=== PATIENT | male | born 1955 | race Caucasian/White ===

== ENCOUNTER 2022-10-26 23:13 | Emergency (ER) | payer MEDICARE, OTHER, SELFPAY ==
--- NOTE | 2022-10-26 23:15 | RT.EKG_ITS ---
APPROVED REPORT Exam: Resting ECG Reason for Exam: chest pain Patient Location: E HR:61 bpm ECG Measurements Heart Rate 61 AXIS IA 175 P 46 QRSd 100 QRS -46 QT 426 T 61 QTc 429 Conclusion Sinus rhythm...normal P axis, V-rate 60- 99 LAD, consider left anterior fascicular block...axis(240,-40), S>R II III aVF. Sinus. No STEMI. I have reviewed and interpreted ECG and agree with software generated interpretation.
[2022-10-26 23:24] VITALS: BP 149/83; PULSE 58; RESP 22; TEMP 37; O2SAT 98
[2022-10-26 23:28] VITALS: RESP 23
--- NOTE | 2022-10-26 23:31 | ED.GENADUL_ITS ---
Discharge Plan Disposition Patient Disposition: Home Condition: Improving Discharge Details Clinical Impression: Biliary colic, Epigastric abdominal pain, Chest pain ED Provider: Seda Martinez Home Meds and New Rx's Prescriptions: New sucralfate [Carafate] 1 gram tablet 1 gm PO QACHS Qty: 14 0RF Continued lisinopril 20 MG tablet 5 mg PO DAILY venlafaxine [Effexor XR] 150 MG capsule,extended release 24hr 150 mg PO DAILY aspirin [Aspir-81] 81 MG tablet,delayed release (DR/EC) 81 mg PO DAILY propranolol 40 MG tablet 40 mg PO DAILY omeprazole 20 MG capsule,delayed release(DR/EC) 20 mg PO DAILY albuterol sulfate [Ventolin HFA] 60 PUFF HFA aerosol inhaler 2 puff Inhalation Q3H PRN PRN cholecalciferol (vitamin D3) 1,000 UNITS tablet 2,000 units PO DAILY budesonide-formoterol [Symbicort] 10.2 GM HFA aerosol inhaler 10.2 gm Inhalation BID indomethacin 50 MG capsule 50 mg PO DAILY famotidine 20 mg tablet 20 mg PO DAILY Discharge Instructions Instructions: Chest Pain (ED), Epigastric Pain (ED) Additional Instructions: Your imaging today shows gallstones which may be the source of your pain. Other possible cause include indigestion, stomach ulcers or stomach inflammation. Drink plenty of fluids and get plenty of rest. Continue to take a daily Pepcid or Prilosec as directed. A prescription for Carafate has been sent electronically to your pharmacy to take as directed for your abdominal pain. Follow-up with your primary care doctor in 1 week and for referral to general surgery if your symptoms do not improve or worsen for consideration for upper endoscopy. Return immediately to the emergency department with any worsening or new concerning symptoms as fever, worsening pain, or persistent vomiting for reevaluation and consideration for repeat CT imaging or for ultrasound if available at that time. Referrals: Ángel Krueger MD [ [facility] STAFF PHYSICIAN] - Discharge Data Discharge Date/Time-TO BE ENTERED AT DEPARTURE: 10/27/22 03:19 Discharge Physician: Seda Martinez Medical Decision Making [id number] -- 67-year-old male with a history of obesity, hypertension, hyperlipidemia, GERD, gout, diabetes, anxiety and depression presents to the ED with a complaint of epigastric abdominal pain with radiation into his chest for the past 4 hours after eating pizza. EKG notes a rate of 61, sinus, no STEMI and nondiagnostic. Blood pressure hypertensive, remainder vitals within normal limits. Patient appears somewhat uncomfortable. He has tenderness in the epigastrium and right upper quadrant. History and presentation does not appear consistent with ACS, PE or dissection. Differential diagnosis includes GERD, gastritis, peptic ulcer disease, cholelithiasis, cholecystitis, pancreatitis, gastroenteritis. We will place an IV, bolus IV fluids, screening labs, CT chest abdomen pelvis and give IV Pepcid, GI cocktail and Carafate and reassess. 0140 --labs and imaging reviewed. White blood cell count mildly elevated at 13.6. Glucose 266 but with normal bicarb and anion gap. Troponin negative. Lipase, LFTs and bilirubin within normal limits. CT reviewed and notes cholelithiasis and diverticulosis but no evidence of cholecystitis or diverticulitis. Patient reassessed and he states his pain is improved from 10/10 to 4/10. He states he still has some upper abdominal discomfort and would like additional relief. We will order a dose of IV Tylenol as patient drove himself here. We will plan for repeat troponin and EKG. 0300 --repeat troponin negative. Repeat EKG unchanged. Patient reassessed and he is requesting to go home. Denies any nausea or pain at this time. Discussed with the patient that possible causes of his pain include cholelithiasis, GERD, peptic ulcer disease, gastritis. Recommend an outpatient gallbladder ultrasound for further reassessment if his pain persists. Disposition decision made weighing the risks and benefits of hospitalization versus outpatient treatment, the risk for further decompensation, and the patient's wishes. Advised to follow up with the primary care doctor for re-evaluation. Usual and customary return precautions given prior to discharge. Medical Records Medical records reviewed: Yes I reviewed the patient's medical records. Imaging Data Radiologic Study: Radiologist's impression: CT Chest With Contrast; Diagnostic Exam date and time: 10/27/2022 12:38 AM Age: 67 years old Clinical indication: Other: Chest/epigastric pain, R/O pancreatitis, gastritisr/o cholecystitis; Additional info: Chest/epigastric pain, R/O pancreatitis, gastritis R/O cholecystitis TECHNIQUE: Imaging protocol: Diagnostic computed tomography of the chest with contrast. 3D rendering (Not supervised by radiologist): MIP and/or 3D reconstructed images were created by the technologist. Radiation optimization: All CT scans at this facility use at least one of these dose optimization techniques: automated exposure control; mA and/or kV adjustment per patient size (includes targeted exams where dose is matched to clinical indication); or iterative reconstruction. Contrast material: OMNIPAQUE 350; Contrast volume: 100 ml; Contrast route: INTRAVENOUS (IV);? COMPARISON: CR CHEST 2 VIEWS PA,LAT 11/19/2017 12:34 PM FINDINGS: Lungs: No consolidation. No masses. Pleural spaces: Unremarkable. No pneumothorax. No pleural effusion. Heart: No cardiomegaly. No pericardial effusion. Lymph nodes: Unremarkable. No enlarged lymph nodes. Vasculature: Unremarkable. No aortic aneurysm.? Bones/joints: Unremarkable. No acute fracture. Soft tissues: Unremarkable. IMPRESSION: No acute findings. CT Abdomen And Pelvis With Contrast Exam date and time: 10/27/2022 12:38 AM Age: 67 years old Clinical indication: Other: Chest/epigastric pain, R/O pancreatitis, gastritisr/o cholecystitis; Additional info: Chest/epigastric pain, R/O pancreatitis, gastritis R/O cholecystitis TECHNIQUE: Imaging protocol: Computed tomography of the abdomen and pelvis with contrast. 3D rendering (Not supervised by radiologist): MIP and/or 3D reconstructed images were created by the technologist. Radiation optimization: All CT scans at this facility use at least one of these dose optimization techniques: automated exposure control; mA and/or kV adjustment per patient size (includes targeted exams where dose is matched to clinical indication); or iterative reconstruction. Contrast material: OMNIPAQUE 350; Contrast volume: 100 ml; Contrast route: INTRAVENOUS (IV);? COMPARISON: CR CHEST 2 VIEWS PA,LAT 11/19/2017 12:34 PM FINDINGS: Liver: Unremarkable. No mass. Gallbladder and bile ducts: Cholelithiasis. Pancreas: Unremarkable. No ductal dilation. Spleen: Calcified granuloma within normal size spleen. Adrenal glands: Normal. No mass. Kidneys and ureters: Unremarkable. No hydronephrosis. Stomach and bowel: Colonic diverticulosis, no acute diverticulitis. Appendix: No evidence of appendicitis. Intraperitoneal space: No free air. No significant fluid collection. Vasculature: Atherosclerotic abdominal aorta and branches. Lymph nodes: No enlarged lymph nodes. Urinary bladder: Unremarkable as visualized. Reproductive: Status post bilateral vasectomy. Bones/joints: Unremarkable. No acute fracture. Soft tissues: Small fat containing bilateral inguinal hernias. IMPRESSION: 1. Colonic diverticulosis, no acute diverticulitis. 2. Cholelithiasis, no acute cholecystitis. Lab Data Lab results reviewed: Yes I reviewed the patient's lab results. Labs: Laboratory Tests Range/Units 10/26/22 10/26/22 10/27/22 23:36 23:36 02:29 WBC (4.4-10.8) 10^3/uL 13.64 H RBC (4.36-5.78) 10^6/uL 5.87 H Hgb (13.5-17.5) g/dL 18.0 H Hct (40.0-50.0) % 52.6 H MCV (80-95) fL 90 MCH (27.0-33.0) pg 30.7 MCHC (32.0-36.0) % 34.2 RDW (11.8-14.1) % 12.0 Plt Count (130-400) 10^3/uL 208 MPV (8.0-11.0) fL 10.0 Immature Gran % 1.2 Neutrophils % 78.0 Lymphocytes % 13.1 Monocytes % 5.9 Eosinophils % 1.3 Basophils % 0.5 Nucleated RBC % (0.0-0.3) % 0.0 Absolute Neutrophils (1.2-6.7) 10^3/uL 10.64 H Absolute Lymphocytes (1.2-3.4) 10^3/uL 1.79 Absolute Monocytes (0.1-0.8) 10^3/uL 0.80 Absolute Eosinophils (0.0-0.7) 10^3/uL 0.18 Absolute Basophils (0.0-0.2) 10^3/uL 0.07 Sodium (136-145) mmol/L 135 L Potassium (3.5-5.1) mmol/L 4.3 Chloride (98-107) mmol/L 99 Carbon Dioxide (21.0-32.0) mmol/L 27.5 Anion Gap (3-11) mmol/L 8.5 BUN (7-18) mg/dL 23 H Creatinine (0.70-1.30) mg/dL 1.3 Est GFR (CKD-EPI 2020) (mL/min/1.73m2) 59.84 Glucose (74-106) mg/dL 266 H Calcium (8.5-10.1) mg/dL 9.2 Magnesium (1.8-2.4) mg/dL 1.8 Total Bilirubin (0.2-1.0) mg/dL 0.7 AST (15-37) U/L 20 ALT (16-63) U/L 28 Alkaline Phosphatase (46-116) U/L 85 Troponin I (<or=60) ng/L < 50 < 50 Total Protein (6.4-8.2) g/dL 7.5 Albumin (3.4-5.0) g/dL 4.1 Lipase (16-77) U/L 53 ECG Data Attestation: I personally reviewed and interpreted this ECG (s) as follows: Interpretation: #1 -- rate of 61, sinus, no stemi. #2 -- rate of 87, sinus, no stemi. HPI General Mode of arrival: EMS . Date/Time Provider Initiated Documentation: 10/26/22 23:30 . Limitations to Documentation: no limitations . Information obtained by: patient . HPI Narrative: Patient is a 59-year-old male with a history of obesity, hypertension, hyperlipidemia, GERD, gout, diabetes, anxiety and depression presents from home for epigastric pain with radiation to his chest for the past 4 hours. Patient states he had pizza at 3 PM today. Patient states he had symptoms starting before he went to bed but became worse while he was laying in bed trying to fall asleep. He describes the pain as constant, sharp in the upper abdomen and radiating up into his chest. He states the pain is currently 10/10. He denies any radiation through his back or around to his sides. He took Pepcid without relief. He denies any known fever, cough, shortness of breath, nausea, vomiting, diarrhea or urinary symptoms. He did have a normal bowel movement at home prior to arrival. Related Data Home Medications Medication Instructions Recorded Confirmed albuterol sulfate 90 mcg/actuation 2 puff inhalation Q3H PRN PRN 11/11/16 10/27/22 aerosol inhaler (Ventolin HFA) aspirin 81 mg tablet,delayed 81 mg PO DAILY 11/11/16 10/27/22 release (Aspir-) budesonide-formoterol HFA 160 10.2 gm inhalation BID 11/11/16 10/27/22 mcg-4.5 mcg/actuation aerosol inhaler (Symbicort) cholecalciferol (vitamin D3) 25 2,000 units PO DAILY 11/11/16 10/27/22 mcg (1,000 unit) tablet lisinopril 20 mg tablet 5 mg PO DAILY 11/11/16 10/27/22 omeprazole 20 mg capsule,delayed 20 mg PO DAILY 11/11/16 10/27/22 release propranolol 40 mg tablet 40 mg PO DAILY 11/11/16 10/27/22 venlafaxine 150 mg 150 mg PO DAILY 11/11/16 10/27/22 capsule,extended release 24 hr (Effexor XR) indomethacin 50 mg capsule 50 mg PO DAILY 11/19/17 10/27/22 famotidine 20 mg tablet 20 mg PO DAILY 10/26/22 10/27/22 sucralfate 1 gram tablet (Carafate) 1 gm PO QACHS #14 tabs 10/27/22 10/27/22 Previous Rx's Medication Instructions Recorded sucralfate 1 gram tablet (Carafate) 1 gm PO QACHS #14 tabs 10/27/22 Allergies Allergy/AdvReac Type Severity Reaction Status Date / Time No Known Allergies Allergy Unverified 10/27/22 18:45 General Stated Complaint: Chest Pain LAILA: 2 Review of Systems All systems reviewed & are unremarkable except as noted in HPI and below Constitutional Constitutional: Reports as per HPI, Denies chills and Denies fever(s) Eyes Eyes: Denies blurry vision ENT Ears, Nose, Mouth, and Throat: Denies dizziness, Denies sore throat and Denies throat swelling Cardiovascular Cardiovascular: Reports chest pain and Denies dyspnea Respiratory Respiratory: Denies cough and Denies dyspnea Gastrointestinal Gastrointestinal: Reports abdominal pain, Denies diarrhea and Denies vomiting Genitourinary Genitourinary: Denies hematuria and Denies dysuria Musculoskeletal Musculoskeletal: Denies back pain and Denies numbness Integumentary/Breasts Skin/Breast: Denies lesions and Denies rash Neurologic Neurologic: Denies dizziness, Denies localized weakness and Denies numbness Allergic/Immunologic Allergic/Immunologic: Denies throat swelling PFSH All Active Problems (Updated 11/01/22 @ 03:33 by Seda Martinez DO) Biliary colic (Acute) Respiratory failure with hypoxia (Acute) Elevated LFTs (Acute) Leukocytosis (Acute) Septic shock (Acute) SHELBI (acute kidney injury) (Acute) COPD (chronic obstructive pulmonary disease) (Chronic) Sepsis (Acute) Epigastric abdominal pain (Acute) Chest pain (Acute) Acute cholecystitis (Acute) Medical History Anxiety Depression Diabetes GERD (gastroesophageal reflux disease) Gout HTN (hypertension) Hx of hyperlipidemia Surgical History H/O thyroid cyst Cystectomy History of hernia repair History of hip replacement Social History Smoking/Tobacco Use Status: Former Tobacco Use Quit Date: 06/09/22 Smoking risk assessment performed?: Yes Alcohol Intake: former Drug use: Never Substance use type: does not use Do you feel safe at home: Yes Do you feel safe in your relationship?: Yes Exam Const General: cooperative, healthy appearing and no acute distress HENMT Head: normal to inspection Face and sinus: normal facial exam Eyes General: appearance normal, both eyes and all related structures Pupils: PERRL EOM: EOM intact bilaterally Neck Neck: normal visual inspection and No submandibular swelling Lymphatic: no lymphadenopathy noted Chest Chest: normal inspection of the chest and no tenderness Resp Effort & Inspection: normal respiratory effort and able to speak in complete sentences Auscultation: clear to auscultation bilaterally Cardio Rate: regular rate Rhythm: regular rhythm GI Inspection: normal to inspection Palpation: soft, not firm, not rigid and tender in the epigastrum Auscultation: hypoactive bowel sounds Back/Spine/Pelvis Thoracic/Lumbar Spine: thoracic and lumbar spine normal to inspection Pelvis: no pain with anterior-posterior compression Skin General skin exam: no rashes or lesions noted Neuro General: patient alert, patient awake and patient oriented x3 Cognition: normal cognition Speech: speech normal Motor: muscle tone normal throughout Sensory Exam: no sensory deficits noted Extrem General: normal to inspection, full ROM, capillary refill normal, no calf tenderness bilaterally and no edema Psych Appearance: grossly normal Mental Status: mental status grossly normal Speech and Movement: speech and movement normal Affect: normal affect Course Vital Signs Vital signs: Vital Signs Temperature 98.6 F 10/26/22 23:24 Pulse 58 L 10/26/22 23:24 Respiratory Rate 22 10/26/22 23:24 Blood Pressure 149/83 H 10/26/22 23:24 Pulse Oximetry 98 10/26/22 23:24 Temperature 98.6 F 10/26/22 23:24 Temperature Source Temporal Artery Scan 10/26/22 23:24 Pulse 58 L 10/26/22 23:24 Respiratory Rate 22 10/26/22 23:24 Blood Pressure 149/83 H 10/26/22 23:24 Blood Pressure Position Sitting 10/26/22 23:24 Pulse Oximetry 98 10/26/22 23:24 Oxygen Delivery Method Room Air 10/26/22 23:24 Oxygen Flow Rate 0 10/26/22 23:24 Pain Level 10 10/26/22 23:24
[2022-10-26 23:41] LABS: Abs Immature Grans 0.17 10^3/uL (0.0-0.06); Absolute Basophil Count 0.07 10^3/uL (0.0-0.2); Absolute Eosinophil Count 0.18 10^3/uL (0.0-0.7); Absolute Lymphocyte Count 1.79 10^3/uL (1.2-3.4); Basophils % 0.5; Eosinophils % 1.3; HCT 52.6 % (40.0-50.0); Immature Grans % 1.2; Lymphocytes % 13.1; MCH 30.7 pg (27.0-33.0); MCHC 34.2 % (32.0-36.0); MCV 90 fL (80-95); Monocytes % 5.9; Platelet Count 208 10^3/uL (130-400); RBC 5.87 10^6/uL (4.36-5.78); RDW-SD 39.8 fL; WBC 13.64 10^3/uL (4.4-10.8)
[2022-10-26 23:43] LABS: Absolute Neutrophil Count 10.64 10^3/uL (1.2-6.7)
[2022-10-26 23:57] VITALS: RESP 16; O2SAT 94
[2022-10-26 23:58] VITALS: RESP 15; O2SAT 96
[2022-10-26 23:59] VITALS: RESP 21; O2SAT 96
[2022-10-27] VITALS (98 sets, daily range): BP systolic 134–148; BP diastolic 60–83; PULSE 60–84; RESP 8–24; TEMP 36.6; O2SAT 94–98
--- NOTE | 2022-10-27 | DI.CT_ITS ---
Exam(s) CT CHEST/ABD/PEL W EXAM: CT CHEST/ABD/PEL W CLINICAL HISTORY: chest/epigastric pain, r/o pancreatitis, gastritis. TECHNIQUE: Imaging Protocol: Axial computed tomography images with coronal and sagittal reformatted images were created and reviewed CONTRAST MATERIAL: Intravenous: Omnipaque 350 Contrast volume:100 ml Oral: no COMPARISON: No exams were available for comparison FINDINGS: CHEST: Tracheobronchial tree: Patent where visualized. Pulmonary parenchyma: No consolidation or dominant measurable mass. Pleura: No effusion or pneumothorax. Lymph nodes: Within normal limits. Aorta: Thoracic portion non-dilated. Heart: Normal size. Mild coronary artery calcifications. No pericardial effusion. Bones: Unremarkable for age. No lytic or blastic lesions.No compression fractures. Soft tissues: Mild bilateral gynecomastia. ABDOMEN: Liver: Normal density. No measurable mass. Gallbladder and biliary tract: Stones noted in gallbladder. No gallbladder wall thickening or perich olecystic fluid. No biliary dilation. Pancreas: Normal density, no abnormal calcifications or inflammatory process. Spleen: Normal. Kidneys: Normal size, contour and axis. No radiodense stones or obstructive uropathy. No suspicious m asses seen. Adrenal glands: No masses seen. Aorta: Mild dilatation to 2.9 cm with mural thrombus. No dissection. Lymph nodes: Within normal limits. Soft tissues: Unremarkable. PELVIS: Bladder: Symmetric distention, no gross wall thickening. Bowel: Stomach and small bowel unremarkable. Diverticulosis sigmoid. No obstruction or bowel wall t hickening. Appendix normal. Peritoneal cavity: No ascites, collection or mesenteric inflammatory response. Bones: Unremarkable for age.. Reproductive organs: Within normal limits. IMPRESSION: No acute abnormality in the chest, abdomen or pelvis.. Cholelithiasis and diverticulosis noted. Mild dilatation of the abdominal aorta with mural thrombus. RADIATION DOSE DELIVERED: 1,527.08mGy.cm Total DLP DATA REPOSITORY: All CT scans at this facility are submitted to the National Radiology Data Registry (NRDR) Dose Index Registry (DIR) with the [employer] ([employer]). RADIATION OPTIMIZATION: All CT scans at this facility use at least one of these dose optimization te chniques: automated exposure control; mA and/or kV adjustment per patient size (includes targeted exa ms where dose is matched to clinical indication); or iterative reconstruction.
[2022-10-27 00:01] LABS: ALT 28 U/L (16-63); AST 20 U/L (15-37); Albumin 4.1 g/dL (3.4-5.0); Alkaline Phosphatase 85 U/L (46-116); Anion Gap 8.5 mmol/L (3-11); BUN 23 mg/dL (7-18); Bilirubin, Total 0.7 mg/dL (0.2-1.0); CO2 27.5 mmol/L (21.0-32.0); CREATININE 1.3 mg/dL (0.70-1.30); Calcium 9.2 mg/dL (8.5-10.1); Chloride 99 mmol/L (98-107); Estimated GFR 59.84 (mL/min/1.73m2); Glucose 266 mg/dL (74-106); Lipase 53 U/L (16-77); Magnesium 1.8 mg/dL (1.8-2.4); Potassium 4.3 mmol/L (3.5-5.1); Sodium 135 mmol/L (136-145); Total Protein 7.5 g/dL (6.4-8.2); Troponin I < 50 ng/L (<or=60)
[2022-10-27] MEDS: Normal Saline 500 ML IV (00:23)
[2022-10-27] MEDS: Famotidine 20 MG/2 ML VIAL IVP (00:24)
[2022-10-27] MEDS: Sucralfate 1 GM TAB PO (00:24)
[2022-10-27] MEDS: Omnipaque 350 MG/ML 100 ML BTL IJ (00:25)
[2022-10-27] MEDS: Normal Saline - Diluent 50 ML VIAL IJ (00:26)
[2022-10-27] MEDS: Normal Saline Flush 10 ML SYR IVP (00:26)
--- NOTE | 2022-10-27 01:34 | DI.VRAD_ITS ---
PROCEDURE INFORMATION: Exam: CT Chest With Contrast; Diagnostic Exam date and time: 10/27/2022 12:38 AM Age: 67 years old Clinical indication: Other: Chest/epigastric pain, R/O pancreatitis, gastritisr/o cholecystitis; Additional info: Chest/epigastric pain, R/O pancreatitis, gastritis R/O cholecystitis TECHNIQUE: Imaging protocol: Diagnostic computed tomography of the chest with contrast. 3D rendering (Not supervised by radiologist): MIP and/or 3D reconstructed images were created by the technologist. Radiation optimization: All CT scans at this facility use at least one of these dose optimization techniques: automated exposure control; mA and/or kV adjustment per patient size (includes targeted exams where dose is matched to clinical indication); or iterative reconstruction. Contrast material: OMNIPAQUE 350; Contrast volume: 100 ml; Contrast route: INTRAVENOUS (IV); COMPARISON: CR CHEST 2 VIEWS PA,LAT 11/19/2017 12:34 PM FINDINGS: Lungs: No consolidation. No masses. Pleural spaces: Unremarkable. No pneumothorax. No pleural effusion. Heart: No cardiomegaly. No pericardial effusion. Lymph nodes: Unremarkable. No enlarged lymph nodes. Vasculature: Unremarkable. No aortic aneurysm. Bones/joints: Unremarkable. No acute fracture. Soft tissues: Unremarkable. IMPRESSION: No acute findings. PROCEDURE INFORMATION: Exam: CT Abdomen And Pelvis With Contrast Exam date and time: 10/27/2022 12:38 AM Age: 67 years old Clinical indication: Other: Chest/epigastric pain, R/O pancreatitis, gastritisr/o cholecystitis; Additional info: Chest/epigastric pain, R/O pancreatitis, gastritis R/O cholecystitis TECHNIQUE: Imaging protocol: Computed tomography of the abdomen and pelvis with contrast. 3D rendering (Not supervised by radiologist): MIP and/or 3D reconstructed images were created by the technologist. Radiation optimization: All CT scans at this facility use at least one of these dose optimization techniques: automated exposure control; mA and/or kV adjustment per patient size (includes targeted exams where dose is matched to clinical indication); or iterative reconstruction. Contrast material: OMNIPAQUE 350; Contrast volume: 100 ml; Contrast route: INTRAVENOUS (IV); COMPARISON: CR CHEST 2 VIEWS PA,LAT 11/19/2017 12:34 PM FINDINGS: Liver: Unremarkable. No mass. Gallbladder and bile ducts: Cholelithiasis. Pancreas: Unremarkable. No ductal dilation. Spleen: Calcified granuloma within normal size spleen. Adrenal glands: Normal. No mass. Kidneys and ureters: Unremarkable. No hydronephrosis. Stomach and bowel: Colonic diverticulosis, no acute diverticulitis. Appendix: No evidence of appendicitis. Intraperitoneal space: No free air. No significant fluid collection. Vasculature: Atherosclerotic abdominal aorta and branches. Lymph nodes: No enlarged lymph nodes. Urinary bladder: Unremarkable as visualized. Reproductive: Status post bilateral vasectomy. Bones/joints: Unremarkable. No acute fracture. Soft tissues: Small fat containing bilateral inguinal hernias. IMPRESSION: 1. Colonic diverticulosis, no acute diverticulitis. 2. Cholelithiasis, no acute cholecystitis. Dictated and Authenticated by: Shyam Franklin MD. Ordering:ROSAMARIA Stack MD
[2022-10-27] MEDS: ACETAMINOPHEN 1,000 MG/100 ML BTL 400 MG IVPB (02:04)
--- NOTE | 2022-10-27 02:30 | RT.EKG_ITS ---
APPROVED REPORT Exam: Resting ECG Reason for Exam: chest pain Patient Location: E HR:87 bpm ECG Measurements Heart Rate 87 AXIS UT 183 P 55 QRSd 101 QRS -62 QT 369 T 57 QTc 444 Conclusion Sinus rhythm...normal P axis, V-rate 60- 99 Inferior infarct, old...Q >35mS, II III aVF. Sinus. No STEMI. I have reviewed and interpreted ECG and agree with software generated interpretation.
[2022-10-27 02:57] LABS: Troponin I < 50 ng/L (<or=60)
== END 2022-10-27 03:19 | disposition home or self-care (01) ==
PROVIDERS: Emergency Provider Physician Assistant
DX: R10.13 Epigastric pain (principal); R07.9 Chest pain, unspecified; I10 Essential (primary) hypertension; E78.5 Hyperlipidemia, unspecified; E11.9 Type 2 diabetes mellitus without complications; F32.A Depression, unspecified; Z79.82 Long term (current) use of aspirin; Z87.891 Personal history of nicotine dependence
CPT/HCPCS: 74177; 80053; 83690; 93005; 96361; 96374; 96375; 99285; 71260; 83735; 84484; 85025; 93010; J0131; J3490

== ENCOUNTER 2022-10-27 18:41 | Inpatient (IN) | payer OTHER, SELFPAY ==
[2022-10-27 18:46] VITALS: BP 123/57; PULSE 72; RESP 18; TEMP 36.4; O2SAT 97
--- NOTE | 2022-10-27 19:15 | RT.EKG_ITS ---
APPROVED REPORT Exam: Resting ECG Reason for Exam: epigastric pain Patient Location: E HR:71 bpm ECG Measurements Heart Rate 71 AXIS [place] 172 P 49 QRSd 99 QRS 63 QT 382 T 65 QTc 417 Conclusion Sinus rhythm...normal P axis, V-rate 60- 99
[2022-10-27 19:44] LABS: Lactate 1.7 mmol/L (0.6-1.4)
[2022-10-27 19:49] LABS: Abs Immature Grans 0.15 10^3/uL (0.0-0.06); Absolute Basophil Count 0.09 10^3/uL (0.0-0.2); Absolute Lymphocyte Count 1.36 10^3/uL (1.2-3.4); Basophils % 0.4; Eosinophils % 0.1; HCT 48.8 % (40.0-50.0); HGB 16.7 g/dL (13.5-17.5); Immature Grans % 0.6; Lymphocytes % 5.9; MCH 30.6 pg (27.0-33.0); MCHC 34.2 % (32.0-36.0); MCV 90 fL (80-95); Monocytes % 7.9; Neutrophils % 85.1; Platelet Count 210 10^3/uL (130-400); RBC 5.45 10^6/uL (4.36-5.78); RDW 12.1 % (11.8-14.1); RDW-SD 39.8 fL; WBC 23.08 10^3/uL (4.4-10.8)
[2022-10-27 19:50] LABS: Absolute Eosinophil Count 0.02 10^3/uL (0.0-0.7); Absolute Monocyte Count 1.82 10^3/uL (0.1-0.8); Absolute Neutrophil Count 19.64 10^3/uL (1.2-6.7)
[2022-10-27] MEDS: FAMOTIDINE 20 MG in Normal Saline 100 ML 400 MG IVPB (20:00)
[2022-10-27 20:03] LABS: ALT 30 U/L (16-63); AST 21 U/L (15-37); Albumin 3.8 g/dL (3.4-5.0); Alkaline Phosphatase 81 U/L (46-116); Anion Gap 8.3 mmol/L (3-11); BUN 20 mg/dL (7-18); Bilirubin, Total 1.8 mg/dL (0.2-1.0); CO2 26.7 mmol/L (21.0-32.0); CREATININE 1.4 mg/dL (0.70-1.30); Calcium 8.8 mg/dL (8.5-10.1); Chloride 99 mmol/L (98-107); Estimated GFR 54.75 (mL/min/1.73m2); Glucose 241 mg/dL (74-106); Lipase 28 U/L (16-77); Potassium 4.2 mmol/L (3.5-5.1); Sodium 134 mmol/L (136-145); Total Protein 7.2 g/dL (6.4-8.2)
[2022-10-27] MEDS: Pantoprazole 40 MG VIAL IVP (20:04)
[2022-10-27 20:06] LABS: Troponin I < 50 ng/L (<or=60)
[2022-10-27] MEDS: Normal Saline 1,000 ML 1000 ML IV (20:07)
[2022-10-27] MEDS: Sucralfate 1 GM TAB PO (20:11)
--- NOTE | 2022-10-27 20:15 | DI.CT_ITS ---
Exam(s) CT ABDOMEN PELVIS W EXAM: CT ABDOMEN PELVIS W CLINICAL HISTORY: RUQ/epigastric pain, bili 1.8, wbc 23. TECHNIQUE: Imaging Protocol: Axial computed tomography images with coronal and sagittal reformatted images were created and reviewed CONTRAST MATERIAL: Intravenous: Omnipaque 350 Contrast volume:100 ml Oral: no COMPARISON: CT CT CHEST/ABD/PEL W from 10/27/2022 FINDINGS: ABDOMEN: Lung Bases: Mild dependent changes. Liver: Normal density. No measurable mass. Gallbladder and biliary tract: Cholelithiasis again noted. Gallbladder wall now appears mildly thick ened. There is mild stranding in the fat surrounding the pole gallbladder. No biliary dilatation. Findings suspicious for early acute cholecystitis. No localized collection or fluid. Pancreas: Normal density, no abnormal calcifications or inflammatory process. Spleen: Normal. Kidneys: Normal size, contour and axis. No radiodense stones or obstructive uropathy. No masses seen. Adrenal glands: No masses seen. Abdominal Aorta: Abdominal portion non-dilated. PELVIS: Bladder: Bladder now contains contrast from the prior CT. No gross wall thickening. No calculi.No fo charli mass. Bowel: Mild wall thickening at the a padded flexure adjacent to the gallbladder, reactive. Diverticu losis descending and sigmoid without evidence of diverticulitis. No obstruction or bowel wall thicke miguelito. Appendix normal. Peritoneal cavity: No ascites, collection or mesenteric inflammatory response. Bones: Within normal limits for age. Reproductive organs: Within normal limits. Lymph nodes: Unremarkable. Soft tissues: Small fatty containing inguinal hernias. Impression: Cholelithiasis and thickened wall and mild pericholecystic edema consistent with cholecystitis. RADIATION DOSE DELIVERED: 903.66mGy.cm Total DLP DATA REPOSITORY: All CT scans at this facility are submitted to the National Radiology Data Registry (NRDR) Dose Index Registry (DIR) with the [employer] ([employer]). RADIATION OPTIMIZATION: All CT scans at this facility use at least one of these dose optimization te chniques: automated exposure control; mA and/or kV adjustment per patient size (includes targeted exa ms where dose is matched to clinical indication); or iterative reconstruction.
--- NOTE | 2022-10-27 20:31 | ED.GENADUL_ITS ---
Discharge Plan Disposition Patient Disposition: Admit to [facility] Discharge Details Chief Complaint: Abd Prob Clinical Impression: Acute cholecystitis Primary Care Provider: [facility] ED Provider: Wenceslao Alberto Home Meds and New Rx's Prescriptions: No Action lisinopril 20 MG tablet 5 mg PO DAILY venlafaxine [Effexor XR] 150 MG capsule,extended release 24hr 150 mg PO DAILY aspirin [Aspir-81] 81 MG tablet,delayed release (DR/EC) 81 mg PO DAILY propranolol 40 MG tablet 40 mg PO DAILY omeprazole 20 MG capsule,delayed release(DR/EC) 20 mg PO DAILY albuterol sulfate [Ventolin HFA] 60 PUFF HFA aerosol inhaler 2 puff Inhalation Q3H PRN PRN cholecalciferol (vitamin D3) 1,000 UNITS tablet 2,000 units PO DAILY budesonide-formoterol [Symbicort] 10.2 GM HFA aerosol inhaler 10.2 gm Inhalation BID indomethacin 50 MG capsule 50 mg PO DAILY famotidine 20 mg tablet 20 mg PO DAILY sucralfate [Carafate] 1 gram tablet 1 gm PO QACHS Qty: 14 0RF Medical Decision Making This is a 67-year-old gentleman with past medical history that includes anxiety, depression, diabetes, gout, hypertension, hyperlipidemia, seen in the ER overnight for abdominal pain, subsequent chest pain and abdominal pain work-up ensued, negative, discharged home. Patient states he was unable to fill his Carafate prescription. Reports ongoing right upper quadrant pain associate with nausea and vomiting today. I feel as though his examination is most consistent with cholecystitis however certainly cannot rule out hepatitis, gastritis, peptic ulcer, atypical chest pain, etc. Plan to obtain IV access, give IV fluid, IV PPI H2 skye, p.o. GI cocktail and Carafate. Will obtain routine screening laboratory values including a single troponin and EKG. Laboratory values reveal leukocytosis of 23.08 which is significantly improved when compared to his recent visit. Absolute neutrophils of 19.64. Lactate of 1.7. Total bili of 1.8 which is up from 0.7. LFTs otherwise unremarkable. Patient reports increasing pain. Will provide IV Dilaudid. Troponin less than 50 Given his significant leukocytosis, ongoing pain, will obtain repeat CT. CT reveals findings concerning for cholecystitis. Will provide IV Zosyn and request a surgical consultation. Covid test ordered. Case discussed with Dr. Jamison, surgery, who is agreeable to admit the patient and will write admission orders This documentation was generated using DocSeaation system, please disregard any oddities of phrase or misspellings. Medical Records Medical records reviewed: Yes I reviewed the patient's medical records. Imaging Data Radiologic Study: Attestation: I personally reviewed and interpreted this imaging study as follows: Imaging: CT Scan Radiologist's impression: PROCEDURE INFORMATION: Exam: CT Abdomen And Pelvis With Contrast Exam date and time: 10/27/2022 8:30 PM Age: 67 years old Clinical indication: Other: Ruq/ epigastric pain, bili 1.8, wbc 23 TECHNIQUE: Imaging protocol: Computed tomography of the abdomen and pelvis with contrast. Contrast material: 350; Contrast volume: 100 ml; Contrast route: INTRAVENOUS (IV); COMPARISON: CT CHEST/ABD/PEL W 10/27/2022 12:38 AM FINDINGS: Lungs: There is right basilar atelectasis. Liver: Normal. No mass. Gallbladder and bile ducts: There is cholelithiasis. There is trace stranding adjacent to the gallbladder. Common bile duct is unremarkable. No intrahepatic biliary dilatation. Pancreas: Normal. No ductal dilation. Spleen: Calcified granuloma in the spleen. Adrenal glands: Normal. No mass. Kidneys and ureters: There is a 0.5 cm cyst in the medial left upper pole kidney. Stomach and bowel: There is diverticulosis of sigmoid colon without focal acute inflammation. Mild to moderate fecal loading noted in the colon. There is mild edema of the wall of the ascending colon in the hepatic flexure region, probably reactive. Appendix: No evidence of appendicitis. Intraperitoneal space: Unremarkable. No free air. No significant fluid collection. Vasculature: Unremarkable. No abdominal aortic aneurysm. Lymph nodes: Unremarkable. No enlarged lymph nodes. Urinary bladder: Unremarkable as visualized.Reproductive: Unremarkable as visualized. Bones/joints: Unremarkable. No acute fracture. Soft tissues: Small fat containing bilateral inguinal hernia. No complication. IMPRESSION: 1. Cholelithiasis with pericholecystic edema suspicious of cholecystitis. There is mild thickening of the subjacent hepatic flexure colon, probably due to reactive changes. There is no dilatation of the common bile duct. 2. Colonic diverticulosis without focal acute inflammation. Lab Data Lab results reviewed: Yes I reviewed the patient's lab results. Labs: Laboratory Tests Range/Units 02/18/23 02/18/23 02/18/23 19:31 19:31 19:31 WBC (4.4-10.8) 10^3/uL 23.08 H RBC (4.36-5.78) 10^6/uL 5.45 Hgb (13.5-17.5) g/dL 16.7 Hct (40.0-50.0) % 48.8 MCV (80-95) fL 90 MCH (27.0-33.0) pg 30.6 MCHC (32.0-36.0) % 34.2 RDW (11.8-14.1) % 12.1 Plt Count (130-400) 10^3/uL 210 MPV (8.0-11.0) fL 10.0 Immature Gran % 0.6 Neutrophils % 85.1 Lymphocytes % 5.9 Monocytes % 7.9 Eosinophils % 0.1 Basophils % 0.4 Nucleated RBC % (0.0-0.3) % 0.0 Absolute Neutrophils (1.2-6.7) 10^3/uL 19.64 H Absolute Lymphocytes (1.2-3.4) 10^3/uL 1.36 Absolute Monocytes (0.1-0.8) 10^3/uL 1.82 H Absolute Eosinophils (0.0-0.7) 10^3/uL 0.02 Absolute Basophils (0.0-0.2) 10^3/uL 0.09 VBG Lactate (0.6-1.4) mmol/L Sodium (136-145) mmol/L 134 L Potassium (3.5-5.1) mmol/L 4.2 Chloride (98-107) mmol/L 99 Carbon Dioxide (21.0-32.0) mmol/L 26.7 Anion Gap (3-11) mmol/L 8.3 BUN (7-18) mg/dL 20 H Creatinine (0.70-1.30) mg/dL 1.4 H Est GFR (CKD-EPI 2020) (mL/min/1.73m2) 54.75 Glucose (74-106) mg/dL 241 H Calcium (8.5-10.1) mg/dL 8.8 Total Bilirubin (0.2-1.0) mg/dL 1.8 H AST (15-37) U/L 21 ALT (16-63) U/L 30 Alkaline Phosphatase (46-116) U/L 81 Troponin I (<or=60) ng/L < 50 Total Protein (6.4-8.2) g/dL 7.2 Albumin (3.4-5.0) g/dL 3.8 Lipase (16-77) U/L 28 COVID-19 Source Range/Units 10/27/22 10/27/22 19:31 21:46 WBC (4.4-10.8) 10^3/uL RBC (4.36-5.78) 10^6/uL Hgb (13.5-17.5) g/dL Hct (40.0-50.0) % MCV (80-95) fL MCH (27.0-33.0) pg MCHC (32.0-36.0) % RDW (11.8-14.1) % Plt Count (130-400) 10^3/uL MPV (8.0-11.0) fL Immature Gran % Neutrophils % Lymphocytes % Monocytes % Eosinophils % Basophils % Nucleated RBC % (0.0-0.3) % Absolute Neutrophils (1.2-6.7) 10^3/uL Absolute Lymphocytes (1.2-3.4) 10^3/uL Absolute Monocytes (0.1-0.8) 10^3/uL Absolute Eosinophils (0.0-0.7) 10^3/uL Absolute Basophils (0.0-0.2) 10^3/uL VBG Lactate (0.6-1.4) mmol/L 1.7 H Sodium (136-145) mmol/L Potassium (3.5-5.1) mmol/L Chloride (98-107) mmol/L Carbon Dioxide (21.0-32.0) mmol/L Anion Gap (3-11) mmol/L BUN (7-18) mg/dL Creatinine (0.70-1.30) mg/dL Est GFR (CKD-EPI 2020) (mL/min/1.73m2) Glucose (74-106) mg/dL Calcium (8.5-10.1) mg/dL Total Bilirubin (0.2-1.0) mg/dL AST (15-37) U/L ALT (16-63) U/L Alkaline Phosphatase (46-116) U/L Troponin I (<or=60) ng/L Total Protein (6.4-8.2) g/dL Albumin (3.4-5.0) g/dL Lipase (16-77) U/L COVID-19 Source Nasal/Nares ECG Data Attestation: I personally reviewed and interpreted this ECG (s) as follows: Interpretation: Sinus rhythm, ventricular of 71, no STEMI. HPI General Mode of arrival: ambulatory . Date/Time Provider Initiated Documentation: 10/27/22 18:52 . Limitations to Documentation: no limitations . Information obtained by: patient . History of Present Illness 67 year old M presents to the emergency department with the chief complaint of Abdominal pain, described as severe, with intensity rated at 9. Quality is described as aching, and is localized to the abdomen. Patient reports no radiation. Patient started experiencing this day(s) (1) and it has been constant (worsening). No relieving factors improve symptom(s), No exacerbating factors reported . Patient notes nausea/vomiting. Patient did receive the following treatments prior to arrival, none Related Data Home Medications Medication Instructions Recorded Confirmed albuterol sulfate 90 mcg/actuation 2 puff inhalation Q3H PRN PRN 11/11/16 10/27/22 aerosol inhaler (Ventolin HFA) aspirin 81 mg tablet,delayed 81 mg PO DAILY 11/11/16 10/27/22 release (Aspir-) budesonide-formoterol HFA 160 10.2 gm inhalation BID 11/11/16 10/27/22 mcg-4.5 mcg/actuation aerosol inhaler (Symbicort) cholecalciferol (vitamin D3) 25 2,000 units PO DAILY 11/11/16 10/27/22 mcg (1,000 unit) tablet lisinopril 20 mg tablet 5 mg PO DAILY 11/11/16 10/27/22 omeprazole 20 mg capsule,delayed 20 mg PO DAILY 11/11/16 10/27/22 release propranolol 40 mg tablet 40 mg PO DAILY 11/11/16 10/27/22 venlafaxine 150 mg 150 mg PO DAILY 11/11/16 10/27/22 capsule,extended release 24 hr (Effexor XR) indomethacin 50 mg capsule 50 mg PO DAILY 11/19/17 10/27/22 famotidine 20 mg tablet 20 mg PO DAILY 10/26/22 10/27/22 sucralfate 1 gram tablet (Carafate) 1 gm PO QACHS #14 tabs 10/27/22 10/27/22 Previous Rx's Medication Instructions Recorded sucralfate 1 gram tablet (Carafate) 1 gm PO QACHS #14 tabs 10/27/22 Allergies Allergy/AdvReac Type Severity Reaction Status Date / Time No Known Allergies Allergy Unverified 10/27/22 18:45 General Stated Complaint: Abd Prob LAILA: 3 Review of Systems Constitutional Constitutional: Denies fatigue, Denies fever(s) and Denies weakness ENT Ears, Nose, Mouth, and Throat: Denies neck pain Cardiovascular Cardiovascular: Denies chest pain and Denies dyspnea Respiratory Respiratory: Denies cough and Denies dyspnea Gastrointestinal Gastrointestinal: Reports abdominal pain, Denies melena, Denies hematochezia, Denies constipation, Denies diarrhea, Reports nausea and Reports vomiting Genitourinary Genitourinary: Denies dysuria Musculoskeletal Musculoskeletal: Denies neck pain, Denies numbness and Denies tingling Integumentary/Breasts Skin/Breast: Denies rash Neurologic Neurologic: Denies numbness, Denies tingling and Denies weakness Endocrine Endocrine: Denies fatigue Hematologic/Lymphatic Hematologic/Lymphatic: Denies easy bleeding and Denies easy bruising PFSH All Active Problems (Updated 10/27/22 @ 22:04 by WINIFRED Iraheta) Epigastric abdominal pain (Acute) Chest pain (Acute) Acute cholecystitis (Acute) Medical History Anxiety Depression Diabetes GERD (gastroesophageal reflux disease) Gout HTN (hypertension) Hx of hyperlipidemia Surgical History H/O thyroid cyst Cystectomy History of hernia repair History of hip replacement Social History Smoking/Tobacco Use Status: Former Tobacco Use Quit Date: 06/09/22 Smoking risk assessment performed?: Yes Alcohol Intake: former Drug use: Never Substance use type: does not use Do you feel safe at home: Yes Do you feel safe in your relationship?: Yes Exam Const General: cooperative, healthy appearing and no acute distress Orientation: alert, awake and oriented x3 HENMT Head: normal to inspection, normocephalic and atraumatic Face and sinus: normal facial exam Mouth: moist mucous membranes abnormal (Slightly dry) Throat: posterior oropharynx normal Eyes Conjunctivae: conjunctivae normal Neck Neck: normal visual inspection, full ROM, no meningeal signs, trachea midline and supple Resp Effort & Inspection: normal respiratory effort and able to speak in complete sentences Auscultation: clear to auscultation bilaterally Cardio Rate: regular rate Rhythm: regular rhythm GI Inspection: normal to inspection Palpation: soft, not firm, guarding in the RUQ, no pulsatile masses and tender Marinelli's sign positive Auscultation: normal bowel sounds Back/Spine/Pelvis Back: no CVA tenderness and No back tenderness Skin General skin exam: no rashes or lesions noted Neuro General: patient alert, patient awake, moves all extremities and no focal motor deficits Cognition: normal cognition Speech: speech normal Sensory Exam: no sensory deficits noted Extrem General: normal to inspection, full ROM and capillary refill normal Psych Appearance: grossly normal Mental Status: mental status grossly normal Course Vital Signs Vital signs: Vital Signs Temperature 36.4 C L 10/27/22 18:46 Pulse 72 10/27/22 18:46 Respiratory Rate 18 10/27/22 18:46 Blood Pressure 123/57 L 10/27/22 18:46 Pulse Oximetry 97 10/27/22 18:46 Temperature 36.4 C L 10/27/22 18:46 Temperature Source Temporal Artery Scan 10/27/22 18:46 Pulse 72 10/27/22 18:46 Respiratory Rate 18 10/27/22 18:46 Respiratory Effort Normal, Non-Labored 10/27/22 18:44 Blood Pressure 123/57 L 10/27/22 18:46 Pulse Oximetry 97 10/27/22 18:46 Oxygen Delivery Method Room Air 10/27/22 18:46 Oxygen Flow Rate 0 10/27/22 18:46 Lab/Test Results Lab/Test Results: Laboratory Tests Range/Units 10/27/22 10/27/22 10/27/22 19:31 19:31 19:31 WBC (4.4-10.8) 10^3/uL 23.08 H RBC (4.36-5.78) 10^6/uL 5.45 Hgb (13.5-17.5) g/dL 16.7 Hct (40.0-50.0) % 48.8 MCV (80-95) fL 90 MCH (27.0-33.0) pg 30.6 MCHC (32.0-36.0) % 34.2 RDW (11.8-14.1) % 12.1 Plt Count (130-400) 10^3/uL 210 MPV (8.0-11.0) fL 10.0 Immature Gran % 0.6 Neutrophils % 85.1 Lymphocytes % 5.9 Monocytes % 7.9 Eosinophils % 0.1 Basophils % 0.4 Nucleated RBC % (0.0-0.3) % 0.0 Absolute Neutrophils (1.2-6.7) 10^3/uL 19.64 H Absolute Lymphocytes (1.2-3.4) 10^3/uL 1.36 Absolute Monocytes (0.1-0.8) 10^3/uL 1.82 H Absolute Eosinophils (0.0-0.7) 10^3/uL 0.02 Absolute Basophils (0.0-0.2) 10^3/uL 0.09 VBG Lactate (0.6-1.4) mmol/L Sodium (136-145) mmol/L 134 L Potassium (3.5-5.1) mmol/L 4.2 Chloride (98-107) mmol/L 99 Carbon Dioxide (21.0-32.0) mmol/L 26.7 Anion Gap (3-11) mmol/L 8.3 BUN (7-18) mg/dL 20 H Creatinine (0.70-1.30) mg/dL 1.4 H Est GFR (CKD-EPI 2020) (mL/min/1.73m2) 54.75 Glucose (74-106) mg/dL 241 H Calcium (8.5-10.1) mg/dL 8.8 Total Bilirubin (0.2-1.0) mg/dL 1.8 H AST (15-37) U/L 21 ALT (16-63) U/L 30 Alkaline Phosphatase (46-116) U/L 81 Troponin I (<or=60) ng/L < 50 Total Protein (6.4-8.2) g/dL 7.2 Albumin (3.4-5.0) g/dL 3.8 Lipase (16-77) U/L 28 Range/Units 10/27/22 19:31 WBC (4.4-10.8) 10^3/uL RBC (4.36-5.78) 10^6/uL Hgb (13.5-17.5) g/dL Hct (40.0-50.0) % MCV (80-95) fL MCH (27.0-33.0) pg MCHC (32.0-36.0) % RDW (11.8-14.1) % Plt Count (130-400) 10^3/uL MPV (8.0-11.0) fL Immature Gran % Neutrophils % Lymphocytes % Monocytes % Eosinophils % Basophils % Nucleated RBC % (0.0-0.3) % Absolute Neutrophils (1.2-6.7) 10^3/uL Absolute Lymphocytes (1.2-3.4) 10^3/uL Absolute Monocytes (0.1-0.8) 10^3/uL Absolute Eosinophils (0.0-0.7) 10^3/uL Absolute Basophils (0.0-0.2) 10^3/uL VBG Lactate (0.6-1.4) mmol/L 1.7 H Sodium (136-145) mmol/L Potassium (3.5-5.1) mmol/L Chloride (98-107) mmol/L Carbon Dioxide (21.0-32.0) mmol/L Anion Gap (3-11) mmol/L BUN (7-18) mg/dL Creatinine (0.70-1.30) mg/dL Est GFR (CKD-EPI 2020) (mL/min/1.73m2) Glucose (74-106) mg/dL Calcium (8.5-10.1) mg/dL Total Bilirubin (0.2-1.0) mg/dL AST (15-37) U/L ALT (16-63) U/L Alkaline Phosphatase (46-116) U/L Troponin I (<or=60) ng/L Total Protein (6.4-8.2) g/dL Albumin (3.4-5.0) g/dL Lipase (16-77) U/L
[2022-10-27] MEDS: Normal Saline - Diluent 50 ML VIAL IJ (20:35)
[2022-10-27] MEDS: Omnipaque 350 MG/ML 100 ML BTL IJ (20:36)
[2022-10-27] MEDS: HYDROmorphone 2 MG/ML SYR 1 MG IVP (21:05)
--- NOTE | 2022-10-27 21:12 | DI.VRAD_ITS ---
PROCEDURE INFORMATION: Exam: CT Abdomen And Pelvis With Contrast Exam date and time: 10/27/2022 8:30 PM Age: 67 years old Clinical indication: Other: Ruq/ epigastric pain, bili 1.8, wbc 23 TECHNIQUE: Imaging protocol: Computed tomography of the abdomen and pelvis with contrast. Contrast material: 350; Contrast volume: 100 ml; Contrast route: INTRAVENOUS (IV); COMPARISON: CT CHEST/ABD/PEL W 10/27/2022 12:38 AM FINDINGS: Lungs: There is right basilar atelectasis. Liver: Normal. No mass. Gallbladder and bile ducts: There is cholelithiasis. There is trace stranding adjacent to the gallbladder. Common bile duct is unremarkable. No intrahepatic biliary dilatation. Pancreas: Normal. No ductal dilation. Spleen: Calcified granuloma in the spleen. Adrenal glands: Normal. No mass. Kidneys and ureters: There is a 0.5 cm cyst in the medial left upper pole kidney. Stomach and bowel: There is diverticulosis of sigmoid colon without focal acute inflammation. Mild to moderate fecal loading noted in the colon. There is mild edema of the wall of the ascending colon in the hepatic flexure region, probably reactive. Appendix: No evidence of appendicitis. Intraperitoneal space: Unremarkable. No free air. No significant fluid collection. Vasculature: Unremarkable. No abdominal aortic aneurysm. Lymph nodes: Unremarkable. No enlarged lymph nodes. Urinary bladder: Unremarkable as visualized. Reproductive: Unremarkable as visualized. Bones/joints: Unremarkable. No acute fracture. Soft tissues: Small fat containing bilateral inguinal hernia. No complication. IMPRESSION: 1. Cholelithiasis with pericholecystic edema suspicious of cholecystitis. There is mild thickening of the subjacent hepatic flexure colon, probably due to reactive changes. There is no dilatation of the common bile duct. 2. Colonic diverticulosis without focal acute inflammation. Dictated and Authenticated by: Christiano Pradhan MD. Ordering:DENICE Billy MD
[2022-10-27 21:49] LABS: Source Nasal/Nares
[2022-10-27 22:22] LABS: COVID-19 PCR Negative (Negative)
[2022-10-27] MEDS: PIPERACILLIN/TAZO 3.375 GM in Normal Saline 50 ML IVPB (22:57)
--- NOTE | 2022-10-27 23:02 | NUR.NOTE ---
Nursing Note: Report called to floor RN. Pt transported upstairs with RN.
[2022-10-27 23:04] VITALS: BP 112/56; PULSE 79; RESP 18; O2SAT 94
[2022-10-27 23:32] VITALS: BP 129/73; PULSE 82; RESP 18; TEMP 38; O2SAT 94
[2022-10-27] MEDS: MORPHine 2 MG/ML SYR IVP (23:51)
[2022-10-27] MEDS: ACETAMINOPHEN 1,000 MG/100 ML BTL 400 MG IVPB (23:53)
[2022-10-27] MEDS: Enoxaparin 40 MG/0.4 ML SYR SC (23:54)
[2022-10-27] MEDS: Normal Saline 1,000 ML 125 ML IV (23:54)
[2022-10-28] VITALS (42 sets, daily range): BP systolic 51–134; BP diastolic 31–75; PULSE 59–92; RESP 12–24; TEMP 36.1–37.4; O2SAT 91–98; BMI 33.7
[2022-10-28 00:47] LABS: Bilirubin Negative (Negative); Blood Negative (Negative); Clarity Clear (Clear); Glucose 100 mg/dL (Negative); Ketones Trace mg/dL (Negative); Leukocyte Esterase Negative (Negative); Nitrite Negative (Negative); pH 5.5 (5-8)
[2022-10-28 00:58] LABS: Bacteria Rare HPF (Negative); C & S Indicated? No; Casts Negative LPF (Negative); Crystals Negative HPF (Negative); Epithelial Cells Rare HPF (Negative); Mucus Negative (Negative); RBC Negative HPF (0-2); WBC Negative HPF (0-5)
[2022-10-28] MEDS: MORPHine 2 MG/ML SYR IVP ×4 (02:37→11:55)
[2022-10-28] MEDS: PIPERACILLIN/TAZO 3.375 GM in Normal Saline 50 ML IVPB ×2 (03:23→10:42)
[2022-10-28] MEDS: ACETAMINOPHEN 1,000 MG/100 ML BTL 400 MG IVPB ×2 (05:45→21:55)
[2022-10-28 06:37] LABS: Abs Immature Grans 0.23 10^3/uL (0.0-0.06); Absolute Monocyte Count 1.53 10^3/uL (0.1-0.8); Basophils % 0.2; HCT 44.6 % (40.0-50.0); HGB 15.4 g/dL (13.5-17.5); Immature Grans % 1.1; MCH 30.6 pg (27.0-33.0); MCHC 34.5 % (32.0-36.0); MCV 89 fL (80-95); MPV 10.2 fL (8.0-11.0); Platelet Count 172 10^3/uL (130-400); RBC 5.03 10^6/uL (4.36-5.78); RDW 12.1 % (11.8-14.1); RDW-SD 39.3 fL
[2022-10-28 06:48] LABS: INR 1.2 (0.9-1.1); PTT Activated 31.4 sec (21.5-31.9); Prothrombin Time 12.3 sec (9.3-11.0)
[2022-10-28 06:56] LABS: ALT 30 U/L (16-63); AST 27 U/L (15-37); Albumin 3.1 g/dL (3.4-5.0); Alkaline Phosphatase 80 U/L (46-116); Anion Gap 10.3 mmol/L (3-11); BUN 19 mg/dL (7-18); Bilirubin, Total 2.5 mg/dL (0.2-1.0); CO2 21.7 mmol/L (21.0-32.0); CREATININE 1.4 mg/dL (0.70-1.30); Chloride 102 mmol/L (98-107); Estimated GFR 54.75 (mL/min/1.73m2); Glucose 220 mg/dL (74-106); Potassium 3.9 mmol/L (3.5-5.1); Sodium 134 mmol/L (136-145); Total Protein 6.1 g/dL (6.4-8.2)
[2022-10-28 07:03] LABS: Absolute Basophil Count 0.04 10^3/uL (0.0-0.2)
[2022-10-28 07:06] LABS: Absolute Lymphocyte Count 0.66 10^3/uL (1.2-3.4); Absolute Neutrophil Count 19.71 10^3/uL (1.2-6.7); Bands % 1; Diff Comment Manual Differential
[2022-10-28 07:07] LABS: Hemoglobin A1C 8.4 % (<5.7)
[2022-10-28] MEDS: Budesonide/Formoterol 160/4.5 6 GM 60 PUFF INH IH ×2 (08:33→19:51)
[2022-10-28] MEDS: Venlafaxine 150 MG CAPCR PO (08:49)
[2022-10-28] MEDS: Propranolol 40 MG TAB PO (08:49)
[2022-10-28] MEDS: Lisinopril 20 MG TAB 5 MG PO (08:49)
[2022-10-28] MEDS: Aspirin E.C. 81 MG TABEC PO (08:49)
[2022-10-28] MEDS: Insulin Aspart 300 UNITS/3 ML PEN SC ×3 (08:51→20:33)
[2022-10-28] MEDS: Normal Saline 1,000 ML 125 ML IV ×2 (09:01→17:29)
--- NOTE | 2022-10-28 12:47 | HPE_ITS ---
Date of service: 10/28/22 Time of Service: 12:47 Assessment and Plan Assessment and plan (1) Acute cholecystitis: Status: Acute Assessment and plan: 67yo male with acute cholecystitis. --NPO --IV fluids --IV antibiotics --pain control --Given change in the pt's clinical presentation, and physical exam, will move to the operating expeditiously, when it is available (2) Diabetes: Assessment and plan: 67yo male with untreated DM. Pt states that he checks fingesticks qod at home, but does not take any medication. His A1c is 8.4, and therefore not well- controlled. --finger sticks q6h and insulin sliding scale --refer for outpatient Diabetes management History of Present Illness History of Present Illness Chief Complaint: abdominal pain Narrative: This is a 68-yo male with a history of DMII, GERD, HTN, HLD, gout, and COPD who presents with abdominal pain. He originally came to the ED the evening of 10/26 complaining of abdominal pain radiating into the chest, after eating homemade pizza. He underwent a workup negative for cardiac etiology, was given a GI cocktail, and was discharged home with some resolution of his pain, with PMD and general surgery follow-up. CT did show cholelithiasis. He returned to the ED on the evening of 10/27 with similar complaints, but without a chest component. His pain has been more focally in the RUQ. He describes going home and trying to eat toast and chicken noodle soup, but he did not tolerate it. His pain persisted through the day with some chills, and he came back to the ED. Upon re-evaluation, his WBC became elevated to 23.08 from 13.64, TBili to 1.8, and CT scan suggested acute cholecystitis with increased edema and inflammation. A surgical consult was called and he was admitted to the service. Review of Systems Constitutional Constitutional: Reports chills, Reports difficulty sleeping, Denies fever(s) and Reports poor appetite Eyes Eyes: Denies blurry vision and Denies change in vision ENT Ears, Nose, Mouth, and Throat: Denies dysphagia, Denies odynophagia and Reports other (h/o thryoid cystectomy) Cardiovascular Cardiovascular: Denies chest pain at rest, Denies lightheadedness and Reports dyspnea on exertion Respiratory Respiratory: Denies cough and Reports dyspnea on exertion Gastrointestinal Gastrointestinal: Reports abdominal pain, Denies dysphagia, Reports heartburn and Denies odynophagia Genitourinary Genitourinary: Denies difficulty urinating and Denies dysuria Musculoskeletal Musculoskeletal: Denies arthralgias PFSH All Active Problems (Updated 10/27/22 @ 22:04 by WINIFRED Iraheta) Epigastric abdominal pain (Acute) Chest pain (Acute) Acute cholecystitis (Acute) Medical History Anxiety Depression Diabetes GERD (gastroesophageal reflux disease) Gout HTN (hypertension) Hx of hyperlipidemia Surgical History H/O thyroid cyst Cystectomy History of hernia repair History of hip replacement Social History Smoking/Tobacco Use Status: Former Tobacco Use Quit Date: 06/09/22 Smoking risk assessment performed?: Yes Alcohol Intake: former Drug use: Never Substance use type: does not use Do you feel safe at home: Yes Do you feel safe in your relationship?: Yes Meds Allergies and Home Medications Allergies Allergy/AdvReac Type Severity Reaction Status Date / Time No Known Allergies Allergy Unverified 10/27/22 18:45 Home Medications Medication Instructions Recorded Confirmed Type albuterol sulfate 90 mcg/actuation 2 puff inhalation Q3H PRN PRN 11/11/16 10/27/22 History aerosol inhaler (Ventolin HFA) aspirin 81 mg tablet,delayed 81 mg PO DAILY 11/11/16 10/27/22 History release (Aspir-) budesonide-formoterol HFA 160 10.2 gm inhalation BID 11/11/16 10/27/22 History mcg-4.5 mcg/actuation aerosol inhaler (Symbicort) cholecalciferol (vitamin D3) 25 2,000 units PO DAILY 11/11/16 10/27/22 History mcg (1,000 unit) tablet lisinopril 20 mg tablet 5 mg PO DAILY 11/11/16 10/27/22 History omeprazole 20 mg capsule,delayed 20 mg PO DAILY 11/11/16 10/27/22 History release propranolol 40 mg tablet 40 mg PO DAILY 11/11/16 10/27/22 History venlafaxine 150 mg 150 mg PO DAILY 11/11/16 10/27/22 History capsule,extended release 24 hr (Effexor XR) indomethacin 50 mg capsule 50 mg PO DAILY 11/19/17 10/27/22 History famotidine 20 mg tablet 20 mg PO DAILY 10/26/22 10/27/22 History sucralfate 1 gram tablet (Carafate) 1 gm PO QACHS #14 tabs 10/27/22 10/27/22 Rx Exam Const General: cooperative, healthy appearing, uncomfortable and well developed Nutritional Appearance: obese Orientation: alert, awake and oriented x3 Neck Neck: supple Resp Effort & Inspection: normal respiratory effort, able to speak in complete sentences, no grunting, not labored and no nasal flaring Auscultation: clear to auscultation bilaterally Cardio Rate: regular rate Rhythm: regular rhythm Heart Sounds: S1 normal and S2 normal GI Palpation: soft, not firm, guarding and tender in the RUQ and Marinelli's sign positive Psych Appearance: grossly normal Mental Status: mental status grossly normal Thought Process: normal Thought Content: normal Insight: insight good Judgment: judgment good Results Imaging Additional studies: CT ABD/PEL(10/27/22): FINDINGS: ABDOMEN: Lung Bases: Mild dependent changes.? Liver: Normal density. No measurable mass. Gallbladder and biliary tract: Cholelithiasis again noted.? Gallbladder wall now appears mildly thickened.? There is mild stranding in the fat surrounding the pole gallbladder.? No biliary dilatation.? Findings suspicious for early acute cholecystitis.? No localized collection or fluid. Pancreas: Normal density, no abnormal calcifications or inflammatory process. Spleen: Normal. Kidneys: Normal size, contour and axis. No radiodense stones or obstructive uropathy. No masses seen. Adrenal glands: No masses seen. Abdominal Aorta: Abdominal portion non-dilated. PELVIS:? Bladder: Bladder now contains contrast from the prior CT.? No gross wall thickening. No calculi.No focal mass. Bowel: Mild wall thickening at the a padded flexure adjacent to the gallbladder, reactive.? Diverticulosis descending and sigmoid without evidence of diverticulitis.? No obstruction or bowel wall thickening. Appendix normal. Peritoneal cavity: No ascites, collection or mesenteric inflammatory response. Bones: Within normal limits for age.? Reproductive organs: Within normal limits. Lymph nodes: Unremarkable.? Soft tissues: Small fatty containing inguinal hernias. Impression: Cholelithiasis and thickened wall and mild pericholecystic edema consistent with cholecystitis.? Labs 10/28/22 06:07 10/28/22 06:07 Labs: Laboratory Results - last 24 hr 10/27/22 10/27/22 10/27/22 19:31 19:31 19:31 WBC 23.08 H RBC 5.45 Hgb 16.7 Hct 48.8 MCV 90 MCH 30.6 MCHC 34.2 RDW 12.1 Plt Count 210 MPV 10.0 Immature Gran % 0.6 Neutrophils % 85.1 Band Neutrophils % Lymphocytes % 5.9 Monocytes % 7.9 Eosinophils % 0.1 Basophils % 0.4 Nucleated RBC % 0.0 Absolute Neutrophils 19.64 H Absolute Lymphocytes 1.36 Absolute Monocytes 1.82 H Absolute Eosinophils 0.02 Absolute Basophils 0.09 PT INR APTT VBG Lactate Sodium 134 L Potassium 4.2 Chloride 99 Carbon Dioxide 26.7 Anion Gap 8.3 BUN 20 H Creatinine 1.4 H Est GFR (CKD-EPI 2020) 54.75 Glucose 241 H Hemoglobin A1c Calcium 8.8 Total Bilirubin 1.8 H AST 21 ALT 30 Alkaline Phosphatase 81 Troponin I < 50 Total Protein 7.2 Albumin 3.8 Lipase 28 Urine Color Urine Clarity Urine pH Ur Specific [place] Urine Protein Urine Ketones Urine Blood Urine Nitrite Urine Bilirubin Urine Urobilinogen Ur Leukocyte Esterase Urine RBC Urine WBC Ur Epithelial Cells Urine Crystals Urine Bacteria Urine Casts Urine Mucus Ur Culture Indicated? Urine Glucose COVID-19 Source SARS-CoV-2 (PCR) 10/27/22 10/27/22 10/28/22 19:31 21:46 00:10 WBC RBC Hgb Hct MCV MCH MCHC RDW Plt Count MPV Immature Gran % Neutrophils % Band Neutrophils % Lymphocytes % Monocytes % Eosinophils % Basophils % Nucleated RBC % Absolute Neutrophils Absolute Lymphocytes Absolute Monocytes Absolute Eosinophils Absolute Basophils PT INR APTT VBG Lactate 1.7 H Sodium Potassium Chloride Carbon Dioxide Anion Gap BUN Creatinine Est GFR (CKD-EPI 2020) Glucose Hemoglobin A1c Calcium Total Bilirubin AST ALT Alkaline Phosphatase Troponin I Total Protein Albumin Lipase Urine Color Yellow Urine Clarity Clear Urine pH 5.5 Ur Specific [place] 1.010 Urine Protein 30 H Urine Ketones Trace H Urine Blood Negative Urine Nitrite Negative Urine Bilirubin Negative Urine Urobilinogen 1.0 H Ur Leukocyte Esterase Negative Urine RBC Negative Urine WBC Negative Ur Epithelial Cells Rare Urine Crystals Negative Urine Bacteria Rare Urine Casts Negative Urine Mucus Negative Ur Culture Indicated? No Urine Glucose 100 H COVID-19 Source Nasal/Nares SARS-CoV-2 (PCR) Negative 10/28/22 10/28/22 10/28/22 06:07 06:07 06:07 WBC 21.90 H RBC 5.03 Hgb 15.4 Hct 44.6 MCV 89 MCH 30.6 MCHC 34.5 RDW 12.1 Plt Count 172 MPV 10.2 Immature Gran % 1.1 Neutrophils % 89.0 Band Neutrophils % 1 Lymphocytes % 3.0 Monocytes % 7.0 Eosinophils % 0.0 Basophils % 0.2 Nucleated RBC % 0.0 Absolute Neutrophils 19.71 H Absolute Lymphocytes 0.66 L Absolute Monocytes 1.53 H Absolute Eosinophils 0.00 Absolute Basophils 0.04 PT INR APTT VBG Lactate Sodium 134 L Potassium 3.9 Chloride 102 Carbon Dioxide 21.7 Anion Gap 10.3 BUN 19 H Creatinine 1.4 H Est GFR (CKD-EPI 2020) 54.75 Glucose 220 H Hemoglobin A1c 8.4 H Calcium 8.0 L Total Bilirubin 2.5 H AST 27 ALT 30 Alkaline Phosphatase 80 Troponin I Total Protein 6.1 L Albumin 3.1 L Lipase Urine Color Urine Clarity Urine pH Ur Specific [place] Urine Protein Urine Ketones Urine Blood Urine Nitrite Urine Bilirubin Urine Urobilinogen Ur Leukocyte Esterase Urine RBC Urine WBC Ur Epithelial Cells Urine Crystals Urine Bacteria Urine Casts Urine Mucus Ur Culture Indicated? Urine Glucose COVID-19 Source SARS-CoV-2 (PCR) 10/28/22 06:07 WBC RBC Hgb Hct MCV MCH MCHC RDW Plt Count MPV Immature Gran % Neutrophils % Band Neutrophils % Lymphocytes % Monocytes % Eosinophils % Basophils % Nucleated RBC % Absolute Neutrophils Absolute Lymphocytes Absolute Monocytes Absolute Eosinophils Absolute Basophils PT 12.3 H INR 1.2 H APTT 31.4 VBG Lactate Sodium Potassium Chloride Carbon Dioxide Anion Gap BUN Creatinine Est GFR (CKD-EPI 2020) Glucose Hemoglobin A1c Calcium Total Bilirubin AST ALT Alkaline Phosphatase Troponin I Total Protein Albumin Lipase Urine Color Urine Clarity Urine pH Ur Specific [place] Urine Protein Urine Ketones Urine Blood Urine Nitrite Urine Bilirubin Urine Urobilinogen Ur Leukocyte Esterase Urine RBC Urine WBC Ur Epithelial Cells Urine Crystals Urine Bacteria Urine Casts Urine Mucus Ur Culture Indicated? Urine Glucose COVID-19 Source SARS-CoV-2 (PCR) Last Vital Signs Temp 99.3 F 10/28/22 07:40 Pulse 92 H 10/28/22 07:40 Resp 18 10/28/22 07:40 BP 114/65 10/28/22 07:40 Pulse Ox 91 L 10/28/22 07:40 Time Spent Time spent with Patient: 40-54 minutes Time was spent: preparing to see the patient(eg.review tests), obtaining and/or reviewing separately otained hiistory, ordering medications,tests, procedures, referring, communicating with other health respiratory care specialist, indepentently interpreting results and counseling the patient
--- NOTE | 2022-10-28 13:03 | INITIAL_ITS ---
- If Service Date Differs Date of service: 10/28/22 Time of Service: 13:03 Care Management Initial Assess REASON FOR HOSPITALIZATION:: Acute cholecystitis PAST MEDICAL HISTORY/PAST SURGICAL HISTORY:: All Active Problems. Epigastric abdominal pain (Acute). Chest pain (Acute). Acute cholecystitis (Acute). Medical History. Anxiety. Depression. Diabetes. GERD (gastroesophageal reflux disease). Gout. HTN (hypertension). Hx of hyperlipidemia. Surgical History. H/O thyroid cyst. Cystectomy. History of hernia repair. History of hip replacement PREVIOUS FUNCTIONAL STATUS/SOCIAL/FAMILY SUPPORTS:: Gaurav lives in [facility] with his S/OSaniya. He is independent at baseline. CURRENT FUNCTIONAL STATUS:: Gaurav was in the OR for a laparoscopic cholecystectomy with Dr. Jamison when CM attempted to meet with him. CM was unable to meet with him today. CM will continue to follow. ADVANCE DIRECTIVES:: Not on file. Has patient been provided with info about the portal/API?: Yes Did the patient sign up for the portal?: No CODE STATUS:: Full Code INSURANCE COVERAGE / FINANCIAL ISSUES:: [facility] MCR replacement/ [employer] MCR supplement CURRENT HOME/COMMUNITY SERVICES/EQUIPMENT:: None known. PRIMARY CARE PHYSICIAN:: EARNESTINE POTENTIAL DISCHARGE NEEDS:: Follow up appointments. PATIENT/FAMILY EDUCATION NEEDS:: Review discharge instructions and limitations, discussion of self care needs including ask me three. ANTICIPATED BARRIERS TO DISCHARGE:: None identified. TRANSPORTATION:: Via private vehicle by s/o. PLAN:: Anticipate Gaurav will return home once medically cleared. His s/oSaniya will drive him home via private vehicle. He will follow up with his PCP and discharge plan of care. CM will continue to follow.
--- NOTE | 2022-10-28 13:05 | W.ANESPRE ---
General Info Date of Service Date Performed: 10/28/22 Height: 5 ft 5 in Weight: 92.1 kg Body Mass Index (BMI): 33.7 Meds Allergies and Home Medications Allergies Allergy/AdvReac Type Severity Reaction Status Date / Time No Known Allergies Allergy Unverified 10/27/22 18:45 Home Medication Medication Instructions Recorded albuterol sulfate 90 mcg/actuation 2 puff inhalation Q3H PRN PRN 11/11/16 aerosol inhaler (Ventolin HFA) aspirin 81 mg tablet,delayed 81 mg PO DAILY 11/11/16 release (Aspir-) budesonide-formoterol HFA 160 10.2 gm inhalation BID 11/11/16 mcg-4.5 mcg/actuation aerosol inhaler (Symbicort) cholecalciferol (vitamin D3) 25 2,000 units PO DAILY 11/11/16 mcg (1,000 unit) tablet lisinopril 20 mg tablet 5 mg PO DAILY 11/11/16 omeprazole 20 mg capsule,delayed 20 mg PO DAILY 11/11/16 release propranolol 40 mg tablet 40 mg PO DAILY 11/11/16 venlafaxine 150 mg 150 mg PO DAILY 11/11/16 capsule,extended release 24 hr (Effexor XR) indomethacin 50 mg capsule 50 mg PO DAILY 11/19/17 famotidine 20 mg tablet 20 mg PO DAILY 10/26/22 sucralfate 1 gram tablet (Carafate) 1 gm PO QACHS #14 tabs 10/27/22 Current Visit Medications: Current Medications Generic Name Dose Route Start Last Admin Trade Name Freq PRN Reason Stop Dose Admin Albuterol Sulfate 2 puff 10/27/22 22:39 Albuterol Hfa 8 Gm 60 Puff Inh IH Q3H PRN PRN Aspirin 81 mg 10/28/22 08:30 10/28/22 08:49 Aspirin E.C. 81 Mg Tabec PO 81 mg DAILY JUANITO Administration Budesonide/Formoterol Fumarate 0 puff 10/28/22 08:30 10/28/22 08:33 Budesonide/Formoterol 160/4.5 6 Gm 60 Puff Inh IH 2 puffs BID JUANITO Administration Device 1 each 10/27/22 23:00 Inhaler, Assist Device MC DIRECTED JUANITO Dextrose 0 gm 10/27/22 22:51 Glucose Oral Gel 15 Gm/37.5 Gm Tube PO DIRECTED PRN Dextrose/Water 0 gm 10/27/22 22:51 Dextrose 50%-Water 25 Gm/50 Ml Syr IVP DIRECTED PRN Enoxaparin Sodium 40 mg 10/27/22 23:00 10/27/22 23:54 Enoxaparin 40 Mg/0.4 Ml Syr SC 40 mg Q24H JUANITO Administration Sodium Chloride 500 mls @ 0 mls/hr 10/27/22 22:26 Saline 500ml Bag IV PRN PRN As Directed Sodium Chloride 1,000 mls @ 125 mls/hr 10/27/22 22:30 10/28/22 09:01 Saline 1000ml Bag IV 125 mls/hr INFUSION [facility] Administration Acetaminophen 1,000 mg in 100 mls @ 400 mls/hr 10/27/22 22:45 10/28/22 06:10 Ofirmev IVPB Infused Q8H [facility] Infusion Piperacillin Sod/Tazobactam 50 mls @ 100 mls/hr 10/28/22 04:00 10/28/22 12:55 Sod 3.375 gm/ Sodium Chloride IVPB Infused Q6H [facility] Infusion Protocol IV Miscellaneous Supplies 1 each 10/27/22 19:30 Iv Access IV DIRECTED [facility] IV Miscellaneous Supplies 1 each 10/27/22 22:30 Iv Access IV DIRECTED [facility] Insulin Aspart 0 units 10/28/22 08:00 10/28/22 12:55 Insulin Aspart 300 Units/3 Ml Pen SC 2 units 0800,1200,1700 [facility] Administration Protocol Iohexol 100 ml 10/27/22 20:45 10/27/22 20:36 Omnipaque 350 Mg/Ml 100 Ml Btl IJ 11/26/22 23:59 100 ml DIRECTED JUANITO Administration Lisinopril 5 mg 10/28/22 08:30 10/28/22 08:49 Lisinopril 20 Mg Tab PO 5 mg DAILY JUANITO Administration Morphine Sulfate 2 mg 10/28/22 02:16 10/28/22 11:55 Morphine 2 Mg/Ml Syr IVP 2 mg Q2H PRN PRN Administration Ondansetron HCl 4 mg 10/27/22 22:26 Ondansetron 4 Mg/2 Ml Vial IVP Q4H PRN PRN Pantoprazole Sodium 40 mg 10/27/22 22:45 10/27/22 22:51 Pantoprazole 40 Mg Vial IVP Not Given Q24H JUANITO Propranolol HCl 40 mg 10/28/22 08:30 10/28/22 08:49 Propranolol 40 Mg Tab PO 40 mg DAILY JUANITO Administration Sodium Chloride 50 ml 10/27/22 20:45 10/27/22 20:35 Normal Saline - Diluent 50 Ml Vial IJ 50 ml .FOR DI USE JUANITO Administration Sodium Chloride 0 ml 10/27/22 22:26 Normal Saline Flush 10 Ml Syr IVP PRN PRN Venlafaxine HCl 150 mg 10/28/22 08:30 10/28/22 08:49 Venlafaxine 150 Mg Capcr PO 150 mg DAILY JUANITO Administration PFSH Active Problems Active Problems: Problem Status Onset Code Epigastric abdominal pain R10.13 Chest pain R07.9 Acute cholecystitis K81.0 Medical History Medical History Anxiety Depression Diabetes GERD (gastroesophageal reflux disease) Gout HTN (hypertension) Hx of hyperlipidemia Surgical History Surgical History H/O thyroid cyst Cystectomy History of hernia repair History of hip replacement Tobacco Smoking/Tobacco Use Status: Former Tobacco Use Alcohol Alcohol Intake: former Substance Use Substance use: Never Substance use type: does not use Vital Signs and Lab Results Vital Signs Most Recent Vital Signs in EMR: Most Recent Vital Signs Temp Pulse Resp BP Pulse Ox 37.4 C 92 H 18 114/65 91 L 10/28/22 07:40 10/28/22 07:40 10/28/22 07:40 10/28/22 07:40 10/28/22 07:40 Point of Care Results Point of Care Results: Finger Stick Blood Glucose 185 10/28/22 12:55 Lab Results 10/28/22 06:07 10/28/22 06:07 Blood Type / Crossmatch: No Data to Display Complete Blood Count: White Blood Count 21.90 10^3/uL (4.4-10.8) H 10/28/22 06:07 Red Blood Count 5.03 10^6/uL (4.36-5.78) 10/28/22 06:07 Hemoglobin 15.4 g/dL (13.5-17.5) 10/28/22 06:07 Hematocrit 44.6 % (40.0-50.0) 10/28/22 06:07 Platelet Count 172 10^3/uL (130-400) 10/28/22 06:07 Venous Blood Lactate 1.7 mmol/L (0.6-1.4) H 10/27/22 19:31 Complete Metabolic Panel: Sodium 134 mmol/L (136-145) L 10/28/22 06:07 Potassium 3.9 mmol/L (3.5-5.1) 10/28/22 06:07 Chloride 102 mmol/L (98-107) 10/28/22 06:07 Carbon Dioxide 21.7 mmol/L (21.0-32.0) 10/28/22 06:07 BUN 19 mg/dL (7-18) H 10/28/22 06:07 Creatinine 1.4 mg/dL (0.70-1.30) H 10/28/22 06:07 Est GFR (CKD-EPI 2020) 54.75 (mL/min/1.73m2) 10/28/22 06:07 Magnesium 1.8 mg/dL (1.8-2.4) 10/26/22 23:36 Calcium 8.0 mg/dL (8.5-10.1) L 10/28/22 06:07 Albumin 3.1 g/dL (3.4-5.0) L 10/28/22 06:07 Glucose 220 mg/dL (74-106) H 10/28/22 06:07 Hemoglobin A1c 8.4 % (<5.7) H 10/28/22 06:07 Liver Function Panel: Alanine Aminotransferase (ALT/SGPT) 30 U/L (16-63) 10/28/22 06:07 Aspartate Amino Transf (AST/SGOT) 27 U/L (15-37) 10/28/22 06:07 Coagulation Panel: INR International Normalized Ratio 1.2 (0.9-1.1) H 10/28/22 06:07 Prothrombin Time 12.3 sec (9.3-11.0) H 10/28/22 06:07 Activated Partial Thromboplast Time 31.4 sec (21.5-31.9) 10/28/22 06:07 Cardiac Panel: Troponin I < 50 ng/L (<or=60) 10/27/22 Arterial Blood Gas: No Data to Display Venous Blood Gas: No Data to Display Pancreas Panel: Lipase 28 U/L (16-77) 10/27/22 19:31 Thyroid Panel: No Data to Display Infectious Disease: Coronavirus (COVID-19)(PCR) Negative (Negative) 10/27/22 21:46 Coronavirus 2019 Source Nasal/Nares 10/27/22 21:46 Blood Cultures: No Data to Display Toxicology Panel: No Data to Display Imaging and Studies Imaging and Studies Study information below may be from another EMR and interpreted by another provider. Please see original notes in EMR for more complete details. EKG Summary: DATE/TIME OF SERVICE: 10/27/221929 : 1955ERFORMING LOCATION: ER APPROVED REPORT Exam: Resting ECG Reason for Exam: epigastric pain Patient Location: E HR:71 bpm ECG Measurements Heart Rate 71 AXIS WI 172 P 49 QRSd 99 QRS 63 QT 382 T65 QTc 417 Conclusion Sinus rhythm...normal P axis, V-rate 60- 99 Anesthesia Assessment and Plan Anesthesia History Personal History: No History of Anesthesia Complications Family History: No Family History of Anesthesia Complications Exercise Tolerance Exercise Tolerance: Metabolic Equivalents>4 Pertinent Negatives Pertinent Negatives: No Symptoms of GERD and No Major Cardiovascular Symptoms or Complaints Cardiac & Pulmonary Exam Cardiac Exam: Normal S1/S2 Heart Sounds Pulmonary Exam: Clear Bilateral Breath Sounds Implantable Cardiac Device Does patient have a Pacemaker or an ICD?: No Airway Exam Known Difficult Airway: No Mallampati Class: 2 Mouth Opening: Normal (> 3cm) Thyromental Distance: Greater than 3 cm Neck Range of Motion: Full ROM Neck Circumference: Normal Teeth Condition: Normal Dentition ASA Classification ASA Score: ASA 2 Emergency Case?: No NPO Status NPO Status: NPO Clears >2 hours, Solids >8 hours Anesthesia Plan Resuscitation Status: Full Code Anesthesia Technique: General Anesthesia Airway Planned: Endotracheal Tube Monitors Used: Standard Monitors Preoperative Comments:: [facility]. [facility]. He has had stress test and echo in the past. He states those studies were normal and he denies any heart complaints or known valve issues.
[2022-10-28] MEDS: Bupivacaine 0.25% Pres-Free 30 ML VIAL (14:30)
[2022-10-28] MEDS: PIPERACILLIN/TAZO 3.375 GM in Normal Saline 100 ML IVPB (14:49)
--- NOTE | 2022-10-28 15:38 | GB_PTH ---
PATIENT: Gaurav Leach LOC: U#:[id number] AGE/SX: 67/M ROOM: 207 RE10/27/[address]: Carlitos Jamison : 1955 BED: A DIS: 11/02/2022 SPEC #: [id number] RECD: 10/29/22 12:45 STATUS: KAREN REQ #: [id number] KINGA: 10/28/22 15:[address]: Carlitos Jamison DEPT: Surgical Specimen RECD BY: Alisha Jones ENTERED: 10/29/22 12:46 SP TYPE: GB OTHR DR: [facility] Tissues: 1 - GALLBLADDER Procedures: GROSS AND MICRO LEVEL 3 Comments: [id number]
--- NOTE | 2022-10-28 16:24 | W.PM.OP ---
Date of service: 10/28/22 Time of Service: 16:24 Operative Note Operative Note DATE OF PROCEDURE: 10/28/22 PRE-OP DIAGNOSIS: acute cholecystitis POST-OP DIAGNOSIS: other (acute gangrenous cholecystitis) PROCEDURE: Laparoscopic cholecystetomy SURGEON: Carlitos Jamison PROGRAMS ASSISTANT: Taiwo Pryor Refer to Anesthesia Record ESTIMATED BLOOD LOSS: 10 PATHOLOGY: other (gallbladder and gallstones) COMPLICATIONS: None Patient was transported to: PACU Patient's condition: critical Implants: none Indications: This is a 67-yo male who presented with abdominal pain. He originally came to the ED the evening of 10/26 complaining of abdominal pain radiating into the chest, after eating homemade pizza. He underwent a workup negative for cardiac etiology, was given a GI cocktail, and was discharged home with some resolution of his pain, with PMD and general surgery follow-up. CT did show cholelithiasis. He returned to the ED on the evening of 10/27 with similar complaints, but without a chest component. His pain has been more focally in the RUQ. He describes going home and trying to eat toast and chicken noodle soup, but he did not tolerate it. His pain persisted through the day with some chills, and he came back to the ED. Upon re-evaluation, his WBC became elevated to 23.08 from 13.64, TBili to 1.8, and CT scan suggested acute cholecystitis with increased edema and inflammation. A surgical consult was called and he was admitted to the service. On exam today, the patient appears extremely uncomforatble, and is demonstrating focal peritonitis in the RUQ. After reviewing the risks and benefits of cholecystectomy, the patient agreed and was brought to the operating room. ? Findings: acute cholecystitis with patches of gangrene/necrosis and murky peritoneal fluid Procedure Description: The patient was seen and identified by name and birthdate in the preoperative holding area. He was brought into the operating room and positioned supine on the operating room table. Sequential compression devices were applied to his ower extremities.General anesthesia was induced and the patient was intubated.? A time out was called ?and participated in by the entire OR staff. We reviewed that antibiotics had been given within an hour of the patient coming to the operating room. Once we were in agreement, we proceeded. The abdomen was prepped and draped in usual standard fashion. Local anesthesia was infiltrated into the skin and subcutaneous tissues in the supraumbilical position. The skin was incised. Access to the abdomen was obtained using blunt and sharp dissection, by standard Nelson technique. A 12-mm blunt trocar was introduced and pneumoperitoneum established to 15 mmHg.? A quick surveillance of the abdomen did not reveal any injury occurred while entering the peritoneal space. The omentum was noted to be plastered over the gallbladder in the RUQ. Murky peritoneal fluid was seen circumferentially at the periphery of the abdomen. Three 5-mm ports were placed in the subxiphoid and right subcostal positions under laparoscopic guidance. The patient was then placed in reverse Trendelenburg position with right side up.? The omentum was quite inflamed, adherent, and was carefully distracted away for the gallbladder.The gallbladder fundus was difficult to manipulate as the organ was quite turgid. Under direct vision, bile was aspirated from the fundal area. The gallbladder was then grasped and elevated cephalad. The infindibulum was quite inflamed. Dissection was underataken in a lateral to medial fashion, skeletonizing the cystic duct and artery, until a critical view was obtained.? The cystic duct was clipped with 2 clips down, 1 up, and divided.? The cystic artery was clipped with 2 down and 1 up and divided.? Hook electrocautery was used to dissect the gallbladder off the gallbladder fossa.? This plane was significantly inflamed, and the gallbladder was entered. There was spillage of some larger stones. Once divided, the gallbladder was placed in an EndoCatch bag, along with the spilled stones, and passed off the field. Irrigation of the field was performed and hemostasis achieved. Another quick diagnostic laparoscopy was performed to ensure no injury.? The 5-mm trocars were removed under direct vision.?The umbilical trocar was removed.? A figure-of-8 0-Vicryl suture was placed on the fascia of the 12mm incision site, ensuring no intra-abdominal contents were entrapped. All wounds were irrigated and infiltrated with local anesthesia.? The incisions were closed with dany. The wounds were dressed with 2x2 gauze and Tegaderms.? All counts of soft and sharp objects were correct prior to the closure of all wounds. The patient was awaken in the operating room and transferred to the PACU in critical condition. He required vasopressor support after throughout the case after induction.
[2022-10-28] MEDS: Norepinephrine in D5W 8 MG/250 ML BAG 17.269 MG IV (16:35)
--- NOTE | 2022-10-28 17:45 | RT.EKG_ITS ---
APPROVED REPORT Exam: Resting ECG Reason for Exam: hypotension Patient Location: I HR:69 bpm ECG Measurements Heart Rate 69 AXIS MA 172 P 42 QRSd 99 QRS -5 QT 403 T 42 QTc 432 Conclusion Sinus rhythm...normal P axis, V-rate 50- 99 Low voltage, extremity and precordial leads...extremity<0.5mV, precordial<1.0mV
--- NOTE | 2022-10-28 18:11 | W.MEDCONSULT ---
Date of service: 10/28/22 Time of Service: 18:11 Assessment and Plan Assessment and plan (1) Acute cholecystitis: Status: Acute Assessment and plan: Status post laparoscopic cholecystectomy for gangrenous cholecystitis. Continue broad-spectrum antibiotics with Zosyn. Continue hemodynamic support with norepinephrine and wean as tolerated. Continue IV fluid support which I would also wean once she is able to take p.o. (2) Sepsis: Status: Acute Assessment and plan: As above. Stat EKG was done demonstrated normal sinus rhythm rate of 69 bpm no acute ischemic changes. Troponin I is negative and repeat lactate level is normal now. [id number] echocardiography showed normal LV function with no regional wall motion abnormalities. Color-flow Doppler did not detect any significant mitral regurgitation or aortic stenosis. RV appears to be upper limits of normal but showed normal RV systolic function with a TAPSE of 23 millimeters. No significant TR was detected. I did not perform a subcostal exam due to his abdominal surgery and therefore did not assess IVC size or inspiratory collapse. At this point I would continue hemodynamic support with norepinephrine and IV fluids. We will switch his IV fluids to LR and I would place a Whitehead catheter to closely monitor his urine output given that he has SHELBI. Critical care time spent interviewing and examining the patient, reviewing studies, discussing case with patient's nurse and consulting physicians was 45 minutes (3) Diabetes: Assessment and plan: Monitor blood sugars before meals and at bedtime with sliding scale. (4) GERD (gastroesophageal reflux disease): Assessment and plan: Continue IV Protonix (5) HTN (hypertension): Assessment and plan: Due to his hypotension his lisinopril and propranolol are on hold. (6) COPD (chronic obstructive pulmonary disease): Status: Chronic Assessment and plan: Continue Symbicort along with as needed use of albuterol. No signs or symptoms of exacerbation (7) SHELBI (acute kidney injury): Status: Acute Assessment and plan: Patient developed acute kidney injury prior from ATN secondary to sepsis and hypotension. Repeat BUN/creatinine this evening is up to 25 and 2.0 respectively whereas his baseline prior to admission had been 23 and 1.3. I would recommend placement of Whitehead for close monitoring of his intake and output continue hemodynamic support avoid use of NSAIDs for pain control and adjust his antibiotics and other medications appropriately for his renal insufficiency. Of note he also has a slight increase in his transaminases probably due to shock liver. History of Present Illness History of Present Illness Chief Complaint: Hypotension Narrative: 67-year-old male with a history of type 2 diabetes mellitus, gout, hypertension, hyperlipidemia, generalized anxiety disorder who presented emergency department on 10/26/2022 with complaints of right upper quadrant abdominal pain with radiation in his chest last about 4 hours. Work-up in the ED department revealed CT scan consistent with cholelithiasis but no evidence of acute cholecystitis although he had a mildly elevated white count. CT also showed colonic diverticulosis without diverticulitis. Patient was treated with analgesics prescribed Carafate discharged home only to return again on the evening of 10/27/2022 with increasing abdominal pain and now with rising white cell count and CT scan was repeated and found to have not only cholelithiasis but pericholecystic edema suspicious for acute cholecystitis. Patient was admitted to surgical service of Dr. Jamison. He was begun on Zosyn and started on IV fluids analgesics, Protonix, antiemetics. Patient was taken to the operating room this afternoon around 2 PM. Patient was hypotensive going into the OR despite having received IV fluids overnight although he had been hemodynamically stable overnight. Patient was treated with phenylephrine and vasopressin and norepinephrine preoperatively and perioperatively. Patient returned to the postanesthesia care unit with ongoing hypotension requiring norepinephrine drip and was admitted to the intensive care unit at which point Dr. Jamison consulted with me for medical management. At the time my evaluation patient was hemodynamically stable blood pressure in the 110s over 60s. Pulse in the 70s sinus rhythm. Patient denies any chest pain or pressure or dyspnea and has no symptoms of dizziness or lightheadedness. Norepinephrine drip has been weaned down to 0.075 mcg/kg/min. He will be monitored overnight in the intensive care unit and as his pressure stabilizes we will wean his norepinephrine further. He remains on Zosyn for antibiotic coverage. Review of Systems All systems reviewed & are unremarkable except as noted in HPI and below PFSH All Active Problems (Updated 10/28/22 @ 19:18 by Wenceslao Lerma MD) SHELBI (acute kidney injury) (Acute) COPD (chronic obstructive pulmonary disease) (Chronic) Sepsis (Acute) Epigastric abdominal pain (Acute) Chest pain (Acute) Acute cholecystitis (Acute) Medical History Anxiety Depression Diabetes GERD (gastroesophageal reflux disease) Gout HTN (hypertension) Hx of hyperlipidemia Surgical History H/O thyroid cyst Cystectomy History of hernia repair History of hip replacement Social History Smoking/Tobacco Use Status: Former Tobacco Use Quit Date: 06/09/22 Smoking risk assessment performed?: Yes Alcohol Intake: former Drug use: Never Substance use type: does not use Do you feel safe at home: Yes Do you feel safe in your relationship?: Yes Exam Narrative Exam Narrative: Obese male in bed in semiupright position he is alert and oriented person place time circumstance denies any chest disc comfort or dyspnea. HEENT is remarkable for being edentulous. Oral mucosa is dry no exudate Neck is supple nontender normal carotid pulses no bruits no JVD, he has evidence of previous cervical surgery for his thyroid right cyst. Lungs are clear to auscultation anteriorly with diminished breath sounds at the bases posteriorly Abdomen is obese soft with some mild tenderness and hypoactive bowel sounds. His bandages over his laparoscopy wounds. Extremities without peripheral cyanosis or edema toes are cold but without cyanosis he has good capillary refill normal pedal pulses Neuro exam grossly intact no focal motor deficits no sensory deficits to light touch no cranial nerve deficits. Results Last Vital Signs Temp 36.4 C L 10/28/22 17:36 Pulse 66 10/28/22 17:36 Resp 14 10/28/22 17:36 BP 90/60 L 10/28/22 17:36 Pulse Ox 94 10/28/22 17:36 Labs 10/28/22 06:07 10/28/22 06:07 Labs: Laboratory Results - last 24 hr 10/27/22 10/27/22 10/27/22 19:31 19:31 19:31 WBC 23.08 H RBC 5.45 Hgb 16.7 Hct 48.8 MCV 90 MCH 30.6 MCHC 34.2 RDW 12.1 Plt Count 210 MPV 10.0 Immature Gran % 0.6 Neutrophils % 85.1 Band Neutrophils % Lymphocytes % 5.9 Monocytes % 7.9 Eosinophils % 0.1 Basophils % 0.4 Nucleated RBC % 0.0 Absolute Neutrophils 19.64 H Absolute Lymphocytes 1.36 Absolute Monocytes 1.82 H Absolute Eosinophils 0.02 Absolute Basophils 0.09 PT INR APTT VBG Lactate Sodium 134 L Potassium 4.2 Chloride 99 Carbon Dioxide 26.7 Anion Gap 8.3 BUN 20 H Creatinine 1.4 H Est GFR (CKD-EPI 2020) 54.75 Glucose 241 H Hemoglobin A1c Calcium 8.8 Total Bilirubin 1.8 H AST 21 ALT 30 Alkaline Phosphatase 81 Troponin I < 50 Total Protein 7.2 Albumin 3.8 Lipase 28 Urine Color Urine Clarity Urine pH Ur Specific [place] Urine Protein Urine Ketones Urine Blood Urine Nitrite Urine Bilirubin Urine Urobilinogen Ur Leukocyte Esterase Urine RBC Urine WBC Ur Epithelial Cells Urine Crystals Urine Bacteria Urine Casts Urine Mucus Ur Culture Indicated? Urine Glucose COVID-19 Source SARS-CoV-2 (PCR) 10/27/22 10/27/22 10/28/22 19:31 21:46 00:10 WBC RBC Hgb Hct MCV MCH MCHC RDW Plt Count MPV Immature Gran % Neutrophils % Band Neutrophils % Lymphocytes % Monocytes % Eosinophils % Basophils % Nucleated RBC % Absolute Neutrophils Absolute Lymphocytes Absolute Monocytes Absolute Eosinophils Absolute Basophils PT INR APTT VBG Lactate 1.7 H Sodium Potassium Chloride Carbon Dioxide Anion Gap BUN Creatinine Est GFR (CKD-EPI 2020) Glucose Hemoglobin A1c Calcium Total Bilirubin AST ALT Alkaline Phosphatase Troponin I Total Protein Albumin Lipase Urine Color Yellow Urine Clarity Clear Urine pH 5.5 Ur Specific [place] 1.010 Urine Protein 30 H Urine Ketones Trace H Urine Blood Negative Urine Nitrite Negative Urine Bilirubin Negative Urine Urobilinogen 1.0 H Ur Leukocyte Esterase Negative Urine RBC Negative Urine WBC Negative Ur Epithelial Cells Rare Urine Crystals Negative Urine Bacteria Rare Urine Casts Negative Urine Mucus Negative Ur Culture Indicated? No Urine Glucose 100 H COVID-19 Source Nasal/Nares SARS-CoV-2 (PCR) Negative 10/28/22 10/28/22 10/28/22 06:07 06:07 06:07 WBC 21.90 H RBC 5.03 Hgb 15.4 Hct 44.6 MCV 89 MCH 30.6 MCHC 34.5 RDW 12.1 Plt Count 172 MPV 10.2 Immature Gran % 1.1 Neutrophils % 89.0 Band Neutrophils % 1 Lymphocytes % 3.0 Monocytes % 7.0 Eosinophils % 0.0 Basophils % 0.2 Nucleated RBC % 0.0 Absolute Neutrophils 19.71 H Absolute Lymphocytes 0.66 L Absolute Monocytes 1.53 H Absolute Eosinophils 0.00 Absolute Basophils 0.04 PT INR APTT VBG Lactate Sodium 134 L Potassium 3.9 Chloride 102 Carbon Dioxide 21.7 Anion Gap 10.3 BUN 19 H Creatinine 1.4 H Est GFR (CKD-EPI 2020) 54.75 Glucose 220 H Hemoglobin A1c 8.4 H Calcium 8.0 L Total Bilirubin 2.5 H AST 27 ALT 30 Alkaline Phosphatase 80 Troponin I Total Protein 6.1 L Albumin 3.1 L Lipase Urine Color Urine Clarity Urine pH Ur Specific [place] Urine Protein Urine Ketones Urine Blood Urine Nitrite Urine Bilirubin Urine Urobilinogen Ur Leukocyte Esterase Urine RBC Urine WBC Ur Epithelial Cells Urine Crystals Urine Bacteria Urine Casts Urine Mucus Ur Culture Indicated? Urine Glucose COVID-19 Source SARS-CoV-2 (PCR) 10/28/22 06:07 WBC RBC Hgb Hct MCV MCH MCHC RDW Plt Count MPV Immature Gran % Neutrophils % Band Neutrophils % Lymphocytes % Monocytes % Eosinophils % Basophils % Nucleated RBC % Absolute Neutrophils Absolute Lymphocytes Absolute Monocytes Absolute Eosinophils Absolute Basophils PT 12.3 H INR 1.2 H APTT 31.4 VBG Lactate Sodium Potassium Chloride Carbon Dioxide Anion Gap BUN Creatinine Est GFR (CKD-EPI 2020) Glucose Hemoglobin A1c Calcium Total Bilirubin AST ALT Alkaline Phosphatase Troponin I Total Protein Albumin Lipase Urine Color Urine Clarity Urine pH Ur Specific [place] Urine Protein Urine Ketones Urine Blood Urine Nitrite Urine Bilirubin Urine Urobilinogen Ur Leukocyte Esterase Urine RBC Urine WBC Ur Epithelial Cells Urine Crystals Urine Bacteria Urine Casts Urine Mucus Ur Culture Indicated? Urine Glucose COVID-19 Source SARS-CoV-2 (PCR)
--- NOTE | 2022-10-28 18:21 | NUR.NOTE ---
Nursing Note: Patient transferred to ICU post operation per PACU.
[2022-10-28 18:32] LABS: Lactate 1.4 mmol/L (0.6-1.4)
[2022-10-28 18:39] LABS: Abs Immature Grans 0.24 10^3/uL (0.0-0.06); Absolute Basophil Count 0.09 10^3/uL (0.0-0.2); Absolute Lymphocyte Count 0.66 10^3/uL (1.2-3.4); Absolute Monocyte Count 0.81 10^3/uL (0.1-0.8); Basophils % 0.4; HCT 45.5 % (40.0-50.0); Immature Grans % 1.1; Lymphocytes % 2.9; MCH 30.3 pg (27.0-33.0); MCV 92 fL (80-95); Monocytes % 3.6; Platelet Count 184 10^3/uL (130-400); RBC 4.95 10^6/uL (4.36-5.78); RDW 12.4 % (11.8-14.1); RDW-SD 41.7 fL; WBC 22.61 10^3/uL (4.4-10.8)
[2022-10-28 18:42] LABS: Diff Comment Diff Reviewed; RBC Morphology Normal
--- NOTE | 2022-10-28 18:44 | W.ANESPOSTOP ---
Postoperative Evaluation Date, Time and Location Date Performed: 10/28/22 Time Performed: 17:40 Patient Location: PACU Vital Signs Most Recent Imported Vital Signs: Most Recent Vital Signs Temp Pulse Resp BP Pulse Ox 36.4 C L 66 14 90/60 L 94 10/28/22 17:36 10/28/22 17:36 10/28/22 17:36 10/28/22 17:36 10/28/22 17:36 Pain Score Most Recent Pain Score: Most Recent Pain Score Pain Level [Generalized] 0 10/28/22 16:54 Pain Level 0 10/28/22 17:20 Assessment Mental Status: Awake (Alert & Oriented to Patient Baseline) Airway and Respiratory Function: Patent airway with normal (patient baseline) respiratory exam (requiring NC oxygen) Cardiovascular Function: Hemodynamically Unstable (See Explanation) (On vasopressors through out case. Still requiring low does norepi. Will go to ICU for further management.) and Receiving care as an inpatient Hydration Status: Adequately Hydrated Nausea & Vomiting: No Nausea or Vomiting Pain: Pt. Denies Any Pain Peripheral Nerve Block: Patient did not receive a nerve block
[2022-10-28 18:53] LABS: ALT 66 U/L (16-63); AST 60 U/L (15-37); Albumin 2.9 g/dL (3.4-5.0); Alkaline Phosphatase 68 U/L (46-116); BUN 25 mg/dL (7-18); Bilirubin, Total 3.1 mg/dL (0.2-1.0); Calcium 7.7 mg/dL (8.5-10.1); Chloride 103 mmol/L (98-107); Estimated GFR 35.68 (mL/min/1.73m2); Glucose 286 mg/dL (74-106); Sodium 134 mmol/L (136-145); Total Protein 6.2 g/dL (6.4-8.2); Troponin I < 50 ng/L (<or=60)
--- NOTE | 2022-10-28 19:52 | NUR.NOTE ---
1740-pt arrived via stretcher from PACU. transferred to ICU bed. pt admitted with 1 OR nurse, Dr. Jamison and Bishop Cordero anesthesia. Report given in patient room.
[2022-10-28] MEDS: PIPERACILLIN/TAZO 4.5 GM in Normal Saline 100 ML IVPB (20:32)
--- NOTE | 2022-10-28 20:32 | POCUS_ITS ---
Pocus Exam Limited Cardiac Exam DATE OF EXAM: 10/28/22 TIME OF EXAM: 18:30 REASON FOR EXAM: Hypotension VISUALIZED STRUCTURES: four chambers, left atrium, left ventricle, LVOT, right atrium, right ventricle, mitral valve and Interventricular septum VIEW OBTAINED: Apical 4-Chamber, Parasternal long-axis and Parasternal short- axis PERTINENT FINDINGS/IMPRESSION: No LV dysfunction and No RV dysfunction INCIDENTAL FINDINGS: Normal LV systolic function and size, normal RV systolic function w/ borderline RV enlargement, no regional wall abnormalities seen. Exam complete
--- NOTE | 2022-10-28 21:21 | PGE_ITS ---
Date of Service Date of service: 10/28/22 Time of Service: 18:04 Assessment and Plan Assessment and plan (1) Sepsis: Status: Acute Assessment and plan: Time of service: 18:04 Pt is immediately s/p laparoscopic cholecystectomy. He was found to have a gangrenous gallbladder with patchy necrosis, and murky peritoneal fluid throughout the abdomen. He was hypotensive upon induction and remained on pressors throughout the case. In the PACU he continued to necessitate vasopressor support even after waking up. He was transferred to the ICU for further hemodynamic support and monitoring. --EKG--within normal limits --labs were sent --Hospitalist consult requested Exam Narrative Exam Narrative: Pt is presently A+Ox3, and is very comfortable without c/o pain No tachypnea or labored breathing Abd dressings c/d/i without peritoneal signs Objective Last Vital Signs Temp 97.7 F 10/28/22 17:40 Pulse 70 10/28/22 19:31 Resp 18 10/28/22 19:50 BP 98/59 L 10/28/22 19:31 Pulse Ox 96 10/28/22 19:50 Laboratory Results - last 24 hr 10/27/22 10/28/22 10/28/22 21:46 00:10 06:07 WBC RBC Hgb Hct MCV MCH MCHC RDW Plt Count MPV Immature Gran % Neutrophils % Band Neutrophils % Lymphocytes % Monocytes % Eosinophils % Basophils % Nucleated RBC % Absolute Neutrophils Absolute Lymphocytes Absolute Monocytes Absolute Eosinophils Absolute Basophils RBC Morphology PT INR APTT VBG Lactate Sodium Potassium Chloride Carbon Dioxide Anion Gap BUN Creatinine Est GFR (CKD-EPI 2020) Glucose Hemoglobin A1c 8.4 H Calcium Total Bilirubin AST ALT Alkaline Phosphatase Troponin I Total Protein Albumin Urine Color Yellow Urine Clarity Clear Urine pH 5.5 Ur Specific [place] 1.010 Urine Protein 30 H Urine Ketones Trace H Urine Blood Negative Urine Nitrite Negative Urine Bilirubin Negative Urine Urobilinogen 1.0 H Ur Leukocyte Esterase Negative Urine RBC Negative Urine WBC Negative Ur Epithelial Cells Rare Urine Crystals Negative Urine Bacteria Rare Urine Casts Negative Urine Mucus Negative Ur Culture Indicated? No Urine Glucose 100 H COVID-19 Source Nasal/Nares SARS-CoV-2 (PCR) Negative 10/28/22 10/28/22 10/28/22 06:07 06:07 06:07 WBC 21.90 H RBC 5.03 Hgb 15.4 Hct 44.6 MCV 89 MCH 30.6 MCHC 34.5 RDW 12.1 Plt Count 172 MPV 10.2 Immature Gran % 1.1 Neutrophils % 89.0 Band Neutrophils % 1 Lymphocytes % 3.0 Monocytes % 7.0 Eosinophils % 0.0 Basophils % 0.2 Nucleated RBC % 0.0 Absolute Neutrophils 19.71 H Absolute Lymphocytes 0.66 L Absolute Monocytes 1.53 H Absolute Eosinophils 0.00 Absolute Basophils 0.04 RBC Morphology PT 12.3 H INR 1.2 H APTT 31.4 VBG Lactate Sodium 134 L Potassium 3.9 Chloride 102 Carbon Dioxide 21.7 Anion Gap 10.3 BUN 19 H Creatinine 1.4 H Est GFR (CKD-EPI 2020) 54.75 Glucose 220 H Hemoglobin A1c Calcium 8.0 L Total Bilirubin 2.5 H AST 27 ALT 30 Alkaline Phosphatase 80 Troponin I Total Protein 6.1 L Albumin 3.1 L Urine Color Urine Clarity Urine pH Ur Specific [place] Urine Protein Urine Ketones Urine Blood Urine Nitrite Urine Bilirubin Urine Urobilinogen Ur Leukocyte Esterase Urine RBC Urine WBC Ur Epithelial Cells Urine Crystals Urine Bacteria Urine Casts Urine Mucus Ur Culture Indicated? Urine Glucose COVID-19 Source SARS-CoV-2 (PCR) 10/28/22 10/28/22 10/28/22 18:25 18:25 18:25 WBC 22.61 H RBC 4.95 Hgb 15.0 Hct 45.5 MCV 92 MCH 30.3 MCHC 33.0 RDW 12.4 Plt Count 184 MPV 10.0 Immature Gran % 1.1 Neutrophils % 92.0 Band Neutrophils % Lymphocytes % 2.9 Monocytes % 3.6 Eosinophils % 0.0 Basophils % 0.4 Nucleated RBC % 0.0 Absolute Neutrophils 20.80 H Absolute Lymphocytes 0.66 L Absolute Monocytes 0.81 H Absolute Eosinophils 0.00 Absolute Basophils 0.09 RBC Morphology Normal PT INR APTT VBG Lactate 1.4 Sodium 134 L Potassium 5.0 D Chloride 103 Carbon Dioxide 22.0 Anion Gap 9.0 BUN 25 H Creatinine 2.0 H Est GFR (CKD-EPI 2020) 35.68 Glucose 286 H Hemoglobin A1c Calcium 7.7 L Total Bilirubin 3.1 H AST 60 H ALT 66 H Alkaline Phosphatase 68 Troponin I < 50 Total Protein 6.2 L Albumin 2.9 L Urine Color Urine Clarity Urine pH Ur Specific [place] Urine Protein Urine Ketones Urine Blood Urine Nitrite Urine Bilirubin Urine Urobilinogen Ur Leukocyte Esterase Urine RBC Urine WBC Ur Epithelial Cells Urine Crystals Urine Bacteria Urine Casts Urine Mucus Ur Culture Indicated? Urine Glucose COVID-19 Source SARS-CoV-2 (PCR) Time Spent with Patient Time Spent with Patient: 25-34 minutes Time was spent: ordering medications,tests, procedures, referring, communicating with other health clinical care manager, indepentently interpreting results and counseling the patient
[2022-10-28] MEDS: Lactated Ringers 1,000 ML 175 ML IV (21:52)
[2022-10-28] MEDS: Lactated Ringers 1,000 ML 1000 ML IV (21:52)
[2022-10-28] MEDS: Pantoprazole 40 MG VIAL IVP (21:55)
[2022-10-28] MEDS: Enoxaparin 40 MG/0.4 ML SYR SC (22:22)
[2022-10-29] VITALS (68 sets, daily range): BP systolic 85–129; BP diastolic 51–78; PULSE 57–89; RESP 11–30; TEMP 36.7–36.9; O2SAT 90–100
[2022-10-29 06:51] LABS: Abs Immature Grans 0.36 10^3/uL (0.0-0.06); Absolute Lymphocyte Count 0.74 10^3/uL (1.2-3.4); Absolute Monocyte Count 0.66 10^3/uL (0.1-0.8); Basophils % 0.2; HCT 40.9 % (40.0-50.0); Immature Grans % 2.1; Lymphocytes % 4.4; MCH 31.1 pg (27.0-33.0); MCHC 34.2 % (32.0-36.0); MCV 91 fL (80-95); MPV 10.3 fL (8.0-11.0); Monocytes % 3.9; Neutrophils % 89.4; Platelet Count 155 10^3/uL (130-400); RDW 12.6 % (11.8-14.1); RDW-SD 41.4 fL; WBC 16.86 10^3/uL (4.4-10.8)
[2022-10-29] MEDS: ACETAMINOPHEN 1,000 MG/100 ML BTL 400 MG IVPB ×3 (07:03→23:01)
[2022-10-29 07:08] LABS: Absolute Basophil Count 0.03 10^3/uL (0.0-0.2); Absolute Neutrophil Count 15.07 10^3/uL (1.2-6.7)
[2022-10-29 07:32] LABS: ALT 60 U/L (16-63); AST 46 U/L (15-37); Albumin 2.5 g/dL (3.4-5.0); Alkaline Phosphatase 65 U/L (46-116); Anion Gap 8.8 mmol/L (3-11); BUN 24 mg/dL (7-18); Bilirubin, Total 1.2 mg/dL (0.2-1.0); CO2 23.2 mmol/L (21.0-32.0); CREATININE 1.6 mg/dL (0.70-1.30); Calcium 7.8 mg/dL (8.5-10.1); Chloride 106 mmol/L (98-107); Estimated GFR 46.64 (mL/min/1.73m2); Glucose 195 mg/dL (74-106); Lipase 10 U/L (16-77); Potassium 4.1 mmol/L (3.5-5.1); Sodium 138 mmol/L (136-145); Total Protein 5.7 g/dL (6.4-8.2)
[2022-10-29] MEDS: Aspirin E.C. 81 MG TABEC PO (07:58)
[2022-10-29] MEDS: Venlafaxine 150 MG CAPCR PO (07:58)
[2022-10-29] MEDS: Budesonide/Formoterol 160/4.5 6 GM 60 PUFF INH IH ×2 (08:17→20:08)
[2022-10-29] MEDS: Insulin Aspart 300 UNITS/3 ML PEN SC ×3 (08:18→17:20)
--- NOTE | 2022-10-29 08:58 | PUCC_ITS ---
General Date of Service Date of service: 10/29/22 Time of Service: 08:58 Reason for Admission to ICU: Septic Shock Assessment and Plan Assessment and plan (1) SHELBI (acute kidney injury): Status: Acute (2) COPD (chronic obstructive pulmonary disease): Status: Chronic (3) Acute cholecystitis: Status: Acute (4) Respiratory failure with hypoxia: Status: Acute (5) Septic shock: Status: Acute (6) Leukocytosis: Status: Acute (7) Diabetes: (8) Elevated LFTs: Status: Acute (9) HTN (hypertension): Assessment and plan: This is a 67 yo admitted to the ICU for septic shock due to an acute gangrenous cholecystitis and is POD 1 from laproscopic cholecystectomy. He did require Levophed, but is now liberated from this. He continues to have LR running at 175cc/hr, however on my exam he appears euvolemic at this time and has tolerated clears. Given his COPD history and risk factors for cardiac disease, I would recommend decreasing or discontinuing his IVF's. He did not have an open procedure so insensible losses would be limited and he appears to have been fully resuscitated that this time. He is receiving Zosyn for antibiotic coverage and his labs all seem to be improving. He is not in pain and is stable. He does not seem to require any further ICU level care, so will not continue to follow given his stability. Recommendations Pulmonary: COPD - continue home Symbicort - conitnue prn albuterol Hypoxic Respiratory Failure - likely due to sepsis - no sign of COPD exacerbation - O2 sat goal 88-92% Cardiac: Septic Shock - s/p Levophed needs, now liberated - fully volume resuscitated now by my exam - recommend decreasing rate or discontinuing IVF's given COPD and cardiac risk factors to prevent worsening hypoxia Renal: SHELBI - fast recovery with volume resuscitation points to an pre renal etiology - monitor I/O's I&O: Intake & Output 10/26/22 10/27/22 10/28/22 10/29/22 23:59 23:59 23:59 23:59 Intake Total 4442.947 / 5042.947 1678.668 / 1678.668 Output Total 625 / 625 125 / 125 Balance 3817.947 / 4417.947 1553.668 / 1553.668 Weight 85.729 kg 92.1 kg Daily Fluid Goal:: even GI Nutrition: Elevated LFT's - continue to monitor, should continue to improve now there is source control and relief of obstruction Date of Last Bowel Movement: 10/28/22 Infectious Disease: Acute gangrenous cholesystitis - POD 1 laproscopic cholecystectomy - on Zosyn - tolerated clears today - care per primary Hematologic: Leukocytosis - due to sepsis, improving Neurologic: No acute concerns Endocrine: Diabetes - medicine consulted for management Lines: Butler PIV Prophylaxis: Protonix Lovenox Code Status: Resuscitation Status Full Code Subjective Critical and life-threatening events over the past 24 hours: This is a 67 yo who has metabolic syndrome and COPD who presented to the ED with abdominal pain. He was not tolerating food and was found to have leukocytosis, elevated bilirubin and his CT was consistent with acute cholecystitis with edema and inflammation. He was taken to the OR yesterday evening and was found to have acute cholecystitis with gangrenous areas. He had a cholecytectomy and was brought to the ICU given his need for vasopressor support. This morning he is doing well and is off vasopressors. He denies any abdominal pain and he tolerated clear liquids per nursing. For his COPD he takes Symbicort and albuterol prn, which were continued during his hospitalization. He remains on LR at 175cc/hr. Exam Narrative Exam Narrative: Gen: NAD, normal respiratory effort, well-nourished HENT: PERRL Chest: No respiratory distress, normal appearance of chest, clear to auscultation bilaterally, no crackles or wheezes, normal inspiratory effort Heart: regular rate and rhythym, no murmurs, rubs or gallops Abdomen: Non-distended, soft, non tender Extremities: No clubbing, edema, cyanosis, rashes Neuro: AAOx3 , non focal Psych: cooperative, appropriate mental affect Most Recent VS/Results Last Vital Signs Temp 36.9 C 10/29/22 00:00 Pulse 61 10/29/22 07:01 Resp 18 10/29/22 07:01 BP 101/61 10/29/22 07:01 Pulse Ox 98 10/29/22 08:20 Laboratory Results - last 24 hr 10/28/22 10/28/22 10/28/22 18:25 18:25 18:25 WBC 22.61 H RBC 4.95 Hgb 15.0 Hct 45.5 MCV 92 MCH 30.3 MCHC 33.0 RDW 12.4 Plt Count 184 MPV 10.0 Immature Gran % 1.1 Neutrophils % 92.0 Lymphocytes % 2.9 Monocytes % 3.6 Eosinophils % 0.0 Basophils % 0.4 Nucleated RBC % 0.0 Absolute Neutrophils 20.80 H Absolute Lymphocytes 0.66 L Absolute Monocytes 0.81 H Absolute Eosinophils 0.00 Absolute Basophils 0.09 RBC Morphology Normal VBG Lactate 1.4 Sodium 134 L Potassium 5.0 D Chloride 103 Carbon Dioxide 22.0 Anion Gap 9.0 BUN 25 H Creatinine 2.0 H Est GFR (CKD-EPI 2020) 35.68 Glucose 286 H Calcium 7.7 L Total Bilirubin 3.1 H AST 60 H ALT 66 H Alkaline Phosphatase 68 Troponin I < 50 Total Protein 6.2 L Albumin 2.9 L Lipase 10/29/22 10/29/22 05:35 05:35 WBC 16.86 H RBC 4.50 Hgb 14.0 Hct 40.9 MCV 91 MCH 31.1 MCHC 34.2 RDW 12.6 Plt Count 155 MPV 10.3 Immature Gran % 2.1 Neutrophils % 89.4 Lymphocytes % 4.4 Monocytes % 3.9 Eosinophils % 0.0 Basophils % 0.2 Nucleated RBC % 0.0 Absolute Neutrophils 15.07 H Absolute Lymphocytes 0.74 L Absolute Monocytes 0.66 Absolute Eosinophils 0.00 Absolute Basophils 0.03 RBC Morphology VBG Lactate Sodium 138 Potassium 4.1 Chloride 106 Carbon Dioxide 23.2 Anion Gap 8.8 BUN 24 H Creatinine 1.6 H Est GFR (CKD-EPI 2020) 46.64 Glucose 195 H Calcium 7.8 L Total Bilirubin 1.2 H AST 46 H ALT 60 Alkaline Phosphatase 65 Troponin I Total Protein 5.7 L Albumin 2.5 L Lipase 10 L Review of Systems All systems reviewed & are unremarkable except as noted in HPI and below Time spent with patient Time spent in Critical Care: 45 Time spent in Critical care included: Chart review, Documenting critically ill care, Time at immediate bedside and Discussing critically ill care with other medical staff Multi-Disciplinary Checklist Lines/Tubes CENTRAL LINE: no ARTERIAL LINE: no BUTLER: yes, Butler Day#: 1 ENDOTRACHEAL TUBE: no ICU Maintenance GLUCOSE 140-180mg/dL: no, Reason/Intervention: corrective insulin ordered, medicine consult is in place PRESSURE ULCER: no RESTRAINTS: no ANTIBIOTICS(if yes, consider Stewardship): Yes Social Issues FAMILY UPDATED: no, Reason/Intervention: Patient able to do so PT/OT: no, Reason/Intervention: timing per surgical service GOALS/DISPOSITION/HYDRAULIC PUNCH PRESS OPERATOR: yes CODE STATUS: Full Prophylaxis DVT PROPHYLAXIS: yes GI PROPHYLAXIS: yes, Indication: on omeprazole as an outpatient
[2022-10-29] MEDS: Albuterol HFA 8 GM 60 PUFF INH IH (10:20)
[2022-10-29] MEDS: PIPERACILLIN/TAZO 4.5 GM in Normal Saline 100 ML IVPB (10:37)
[2022-10-29] MEDS: Lactated Ringers 1,000 ML 175 ML IV (11:16)
--- NOTE | 2022-10-29 12:25 | W.PM.PROGNOT ---
Date of Service Date of service: 10/29/22 Time of Service: 12:25 Assessment and Plan Assessment and plan (1) Septic shock: Status: Acute Assessment and plan: Pt is now off of vasopressors for >12 hours, and is making adequate urine. Septic shock appears to be resolved. --decrease IVF --can likely return to MedSurg status--will discuss with Dr. Lerma (2) SHELBI (acute kidney injury): Status: Acute Assessment and plan: --continue gentle hydration --trend BUN/Cr --I/Os for adequate perfusion --likely d/c Whitehead in AM (3) Acute cholecystitis: Status: Acute Assessment and plan: POD#1 s/p laparoscopic cholecystectomy, now in stable condition, with likely ileus. --clear liquids for lunch, advance as tolerated --OOB and ambulate --DVT/GI prophylasxis (4) Respiratory failure with hypoxia: Status: Acute Assessment and plan: --titrate nasal cannula to maintain SpO2>92% --incentive spirometry --cough and deep breathing --OOB and ambulate (5) COPD (chronic obstructive pulmonary disease): Status: Chronic Assessment and plan: --decreased IVFs --cont home inhalers Subjective Subjective Interval history since last seen: Pt is feeling well today. He denies any chest pain, abdominal pain. He is tolerating clear liquids without nausea. Nursing reports that he has been off of vasopressor support since 3am, and his urine output has increased. He has otherwise been hemodynamically stable with SBPs in the 100s-110s. Exam Const General: cooperative, healthy appearing and well developed Nutritional Appearance: obese Orientation: alert, awake and oriented x3 Neck Neck: supple Resp Effort & Inspection: normal respiratory effort, able to speak in complete sentences, no grunting, not labored and no nasal flaring Auscultation: clear to auscultation bilaterally Cardio Rate: regular rate Rhythm: regular rhythm Heart Sounds: S1 normal and S2 normal GI Inspection: distended, large pannus and obesity Palpation: soft, not firm, no guarding, not rigid and nontender Percussion: tympanic to percussion Auscultation: hypoactive bowel sounds Psych Appearance: grossly normal Mental Status: mental status grossly normal Thought Process: normal Thought Content: normal Insight: insight good Judgment: judgment good Objective Last Vital Signs Temp 98.4 F 02/20/23 00:00 Pulse 72 10/29/22 10:31 Resp 15 10/29/22 10:31 BP 108/58 L 10/29/22 10:31 Pulse Ox 96 10/29/22 11:45 Laboratory Results - last 24 hr 10/28/22 10/28/22 10/28/22 18:25 18:25 18:25 WBC 22.61 H RBC 4.95 Hgb 15.0 Hct 45.5 MCV 92 MCH 30.3 MCHC 33.0 RDW 12.4 Plt Count 184 MPV 10.0 Immature Gran % 1.1 Neutrophils % 92.0 Lymphocytes % 2.9 Monocytes % 3.6 Eosinophils % 0.0 Basophils % 0.4 Nucleated RBC % 0.0 Absolute Neutrophils 20.80 H Absolute Lymphocytes 0.66 L Absolute Monocytes 0.81 H Absolute Eosinophils 0.00 Absolute Basophils 0.09 RBC Morphology Normal VBG Lactate 1.4 Sodium 134 L Potassium 5.0 D Chloride 103 Carbon Dioxide 22.0 Anion Gap 9.0 BUN 25 H Creatinine 2.0 H Est GFR (CKD-EPI 2020) 35.68 Glucose 286 H Calcium 7.7 L Total Bilirubin 3.1 H AST 60 H ALT 66 H Alkaline Phosphatase 68 Troponin I < 50 Total Protein 6.2 L Albumin 2.9 L Lipase 10/29/22 10/29/22 05:35 05:35 WBC 16.86 H RBC 4.50 Hgb 14.0 Hct 40.9 MCV 91 MCH 31.1 MCHC 34.2 RDW 12.6 Plt Count 155 MPV 10.3 Immature Gran % 2.1 Neutrophils % 89.4 Lymphocytes % 4.4 Monocytes % 3.9 Eosinophils % 0.0 Basophils % 0.2 Nucleated RBC % 0.0 Absolute Neutrophils 15.07 H Absolute Lymphocytes 0.74 L Absolute Monocytes 0.66 Absolute Eosinophils 0.00 Absolute Basophils 0.03 RBC Morphology VBG Lactate Sodium 138 Potassium 4.1 Chloride 106 Carbon Dioxide 23.2 Anion Gap 8.8 BUN 24 H Creatinine 1.6 H Est GFR (CKD-EPI 2020) 46.64 Glucose 195 H Calcium 7.8 L Total Bilirubin 1.2 H AST 46 H ALT 60 Alkaline Phosphatase 65 Troponin I Total Protein 5.7 L Albumin 2.5 L Lipase 10 L Time Spent with Patient Time Spent with Patient: 25-34 minutes Time was spent: preparing to see the patient(eg.review tests), obtaining and/or reviewing separately otained hiistory, ordering medications,tests, procedures, referring, communicating with other health assurance services manager health care, indepentently interpreting results and counseling the patient
[2022-10-29] MEDS: Normal Saline Flush 10 ML SYR IVP ×2 (14:55→23:02)
--- NOTE | 2022-10-29 16:58 | PDOC.CMPRO ---
- If Service Date Differs Date of service: 10/29/22 Time of Service: 16:58 Care Management Progress Note S/O: Gaurav remains inpatient, he was lying in bed, sleeping when CM attempted to meet with him. CM continues to follow. A: 67 year old male admitted to [facility] 10/27/22 for acute cholecystitis P: Gaurav will return home once medically cleared. His s/o, Saniya will drive him home via private vehicle. He will follow up with his PCP and discharge plan of care. CM will continue to follow.
[2022-10-29] MEDS: PIPERACILLIN/TAZO 3.375 GM in Normal Saline 50 ML IVPB (19:00)
[2022-10-29] MEDS: Enoxaparin 40 MG/0.4 ML SYR SC (23:02)
[2022-10-29] MEDS: Pantoprazole 40 MG VIAL IVP (23:02)
[2022-10-30] VITALS (12 sets, daily range): BP systolic 115–166; BP diastolic 65–83; PULSE 64–98; RESP 16–24; TEMP 36.3–36.9; O2SAT 93–96
[2022-10-30] MEDS: Normal Saline Flush 10 ML SYR IVP ×5 (00:31→22:22)
[2022-10-30] MEDS: PIPERACILLIN/TAZO 3.375 GM in Normal Saline 50 ML IVPB ×2 (01:49→12:20)
[2022-10-30] MEDS: Normal Saline 500 ML 30 ML IV (05:26)
[2022-10-30] MEDS: ACETAMINOPHEN 1,000 MG/100 ML BTL 400 MG IVPB (05:26)
[2022-10-30 06:09] LABS: Absolute Basophil Count 0.04 10^3/uL (0.0-0.2); Absolute Eosinophil Count 0.08 10^3/uL (0.0-0.7); Absolute Lymphocyte Count 1.33 10^3/uL (1.2-3.4); Basophils % 0.3; Eosinophils % 0.6; HCT 41.6 % (40.0-50.0); HGB 14.1 g/dL (13.5-17.5); Immature Grans % 0.7; Lymphocytes % 9.5; MCH 30.7 pg (27.0-33.0); MCHC 33.9 % (32.0-36.0); MCV 91 fL (80-95); MPV 10.4 fL (8.0-11.0); Monocytes % 5.7; Neutrophils % 83.2; Platelet Count 181 10^3/uL (130-400); RBC 4.59 10^6/uL (4.36-5.78); RDW 12.4 % (11.8-14.1); RDW-SD 41.1 fL; WBC 14.02 10^3/uL (4.4-10.8)
[2022-10-30 06:16] LABS: Absolute Neutrophil Count 11.66 10^3/uL (1.2-6.7)
[2022-10-30 06:27] LABS: ALT 47 U/L (16-63); AST 25 U/L (15-37); Albumin 2.3 g/dL (3.4-5.0); Alkaline Phosphatase 63 U/L (46-116); Anion Gap 8.8 mmol/L (3-11); BUN 21 mg/dL (7-18); Bilirubin, Total 1.1 mg/dL (0.2-1.0); CO2 23.2 mmol/L (21.0-32.0); CREATININE 1.4 mg/dL (0.70-1.30); Chloride 106 mmol/L (98-107); Estimated GFR 54.75 (mL/min/1.73m2); Glucose 145 mg/dL (74-106); Potassium 3.6 mmol/L (3.5-5.1); Sodium 138 mmol/L (136-145); Total Protein 5.8 g/dL (6.4-8.2)
[2022-10-30] MEDS: Budesonide/Formoterol 160/4.5 6 GM 60 PUFF INH IH ×2 (08:18→19:24)
[2022-10-30] MEDS: Venlafaxine 150 MG CAPCR PO (08:31)
[2022-10-30] MEDS: Aspirin E.C. 81 MG TABEC PO (08:31)
--- NOTE | 2022-10-30 09:33 | W.PM.PROGNOT ---
Date of Service Date of service: 10/30/22 Time of Service: 09:33 Assessment and Plan Assessment and plan (1) Acute cholecystitis: Status: Acute Assessment and plan: POD#2 s/p laparoscopic cholecystectomy. -- Tolerating full liquid diet, will advance --OOB and ambulate --DVT/GI prophylasxis I have seen and examined the patient, and agree With Ariana Goel's note. Mr. Leach is significantly improved. He is tolerating full liquids and his Whitehead is due to come out. He is demonstrating expected signs of ileus with abdominal distention, but he is passing some flatus. Will have him ambulate out of bed. He denies any current complaints. Will continue IV antibiotics. --anticipate discharge home tomorrow on oral antibiotics (2) Septic shock: Status: Acute Assessment and plan: Returning to Med/Surg given patient's significant improvement. (3) SHELBI (acute kidney injury): Status: Acute Assessment and plan: Pt is adequately resuscitated, and taking oral intake --IV lock (4) Respiratory failure with hypoxia: Status: Acute Assessment and plan: Resolving --incentive spirometry --cough and deep breathing --OOB and ambulate (5) COPD (chronic obstructive pulmonary disease): Status: Chronic Assessment and plan: --cont home inhalers Subjective Subjective Interval history since last seen: Arrived with patient resting comfortably in bed and consuming full liquid tray. He states he is feeling significantly better than when he came in. He states his abdomen still feels distended. Denies any nausea or vomiting. Exam Const General: cooperative, healthy appearing and comfortable Orientation: alert and oriented x3 Resp Effort & Inspection: normal respiratory effort, no audible wheezes and no cough GI Inspection: normal to inspection Palpation: soft, no guarding and tender Percussion: tympanic to percussion Auscultation: normal bowel sounds Other: Incision dressings are in place. No erythema, swelling or ecchymosis around incision sites. Psych Mental Status: mental status grossly normal Insight: insight good Judgment: judgment good Objective Last Vital Signs Temp 36.7 C 10/30/22 09:22 Pulse 79 10/30/22 09:22 Resp 16 10/30/22 09:22 BP 151/80 H 10/30/22 09:22 Pulse Ox 94 10/30/22 04:00 Laboratory Results - last 24 hr 10/30/22 10/30/22 05:30 05:30 WBC 14.02 H RBC 4.59 Hgb 14.1 Hct 41.6 MCV 91 MCH 30.7 MCHC 33.9 RDW 12.4 Plt Count 181 MPV 10.4 Immature Gran % 0.7 Neutrophils % 83.2 Lymphocytes % 9.5 Monocytes % 5.7 Eosinophils % 0.6 Basophils % 0.3 Nucleated RBC % 0.0 Absolute Neutrophils 11.66 H Absolute Lymphocytes 1.33 Absolute Monocytes 0.80 Absolute Eosinophils 0.08 Absolute Basophils 0.04 Sodium 138 Potassium 3.6 Chloride 106 Carbon Dioxide 23.2 Anion Gap 8.8 BUN 21 H Creatinine 1.4 H Est GFR (CKD-EPI 2020) 54.75 Glucose 145 H Calcium 8.0 L Total Bilirubin 1.1 H AST 25 ALT 47 Alkaline Phosphatase 63 Total Protein 5.8 L Albumin 2.3 L Time Spent with Patient Time Spent with Patient: <25 minutes Time was spent: preparing to see the patient(eg.review tests), obtaining and/or reviewing separately otained hiistory, ordering medications,tests, procedures, referring, communicating with other health customer care assistant, indepentently interpreting results and counseling the patient
--- NOTE | 2022-10-30 14:28 | NUR.NOTE ---
Nursing Note: At 1331, the patient ambulated from ICU room 222 to Med Surg room 207- patient is now med surg status.
[2022-10-30] MEDS: Insulin Aspart 300 UNITS/3 ML PEN SC (17:04)
[2022-10-30] MEDS: PIPERACILLIN/TAZO 3.375 GM in Normal Saline 100 ML IVPB (17:53)
[2022-10-30] MEDS: Enoxaparin 40 MG/0.4 ML SYR SC (22:20)
[2022-10-30] MEDS: Pantoprazole 40 MG VIAL IVP (22:22)
[2022-10-30] MEDS: oxyCODONE 5 MG TAB PO (23:28)
[2022-10-31] MEDS: PIPERACILLIN/TAZO 3.375 GM in Normal Saline 100 ML IVPB ×3 (01:30→17:25)
[2022-10-31 03:24] VITALS: BP 158/82; PULSE 86; RESP 18; TEMP 36.9; O2SAT 93
[2022-10-31 06:18] LABS: Abs Immature Grans 0.25 10^3/uL (0.0-0.06); Absolute Eosinophil Count 0.12 10^3/uL (0.0-0.7); Absolute Lymphocyte Count 1.36 10^3/uL (1.2-3.4); Basophils % 0.6; Eosinophils % 1.1; HCT 43.7 % (40.0-50.0); HGB 14.8 g/dL (13.5-17.5); Immature Grans % 2.3; Lymphocytes % 12.6; MCH 30.1 pg (27.0-33.0); MCHC 33.9 % (32.0-36.0); MCV 89 fL (80-95); MPV 9.6 fL (8.0-11.0); Monocytes % 10.4; Platelet Count 199 10^3/uL (130-400); RBC 4.91 10^6/uL (4.36-5.78); RDW 12.1 % (11.8-14.1); RDW-SD 39.9 fL; WBC 10.82 10^3/uL (4.4-10.8)
[2022-10-31 06:22] LABS: Absolute Basophil Count 0.06 10^3/uL (0.0-0.2); Absolute Monocyte Count 1.13 10^3/uL (0.1-0.8)
[2022-10-31] MEDS: Acetaminophen 325 MG TAB 650 MG PO (06:36)
[2022-10-31 06:37] LABS: ALT 52 U/L (16-63); AST 38 U/L (15-37); Albumin 2.3 g/dL (3.4-5.0); Alkaline Phosphatase 77 U/L (46-116); Anion Gap 10.9 mmol/L (3-11); BUN 19 mg/dL (7-18); Bilirubin, Total 1.2 mg/dL (0.2-1.0); CO2 22.1 mmol/L (21.0-32.0); CREATININE 1.2 mg/dL (0.70-1.30); Calcium 8.3 mg/dL (8.5-10.1); Chloride 103 mmol/L (98-107); Estimated GFR 65.87 (mL/min/1.73m2); Glucose 139 mg/dL (74-106); Potassium 3.5 mmol/L (3.5-5.1); Sodium 136 mmol/L (136-145)
[2022-10-31 07:19] VITALS: BP 166/86; PULSE 75; RESP 19; TEMP 36.5; O2SAT 93
[2022-10-31] MEDS: Aspirin E.C. 81 MG TABEC PO (08:04)
[2022-10-31] MEDS: Venlafaxine 150 MG CAPCR PO (08:04)
[2022-10-31] MEDS: Budesonide/Formoterol 160/4.5 6 GM 60 PUFF INH IH ×2 (08:20→20:31)
--- NOTE | 2022-10-31 08:48 | W.PM.PROGNOT ---
Date of Service Date of service: 10/31/22 Time of Service: 08:48 Assessment and Plan Assessment and plan (1) Acute cholecystitis: Status: Acute Assessment and plan: POD#3 s/p laparoscopic cholecystectomy. Patient was diaphoretic. No fever. BS was 114. Denies chest pain, palpitations or SOB. WBC trending downward Tolerating post-op diet Ordered PT consult OOB and ambulate Ordered Mylanta to help with bloating, (+) BM yesterday DVT/GI prophylasxis I saw and examined Gaurav around 830 this morning, and I agree with Ariana's note. He feels well, but does not have much appetite yet. His labs and vital signs are certainly reassuring. His abdomen is a little distended today. I encouraged him to walk a little more today, and we can continue with an aggressive bowel regimen to help promote GI motility. I would like to see his distention improved a little bit, and make sure that he is able to tolerate a regular diet before discharge home. (2) Septic shock: Status: Acute Assessment and plan: Returning to Med/Surg given patient's significant improvement. (3) SHELBI (acute kidney injury): Status: Acute (4) Respiratory failure with hypoxia: Status: Acute (5) COPD (chronic obstructive pulmonary disease): Status: Chronic Subjective Subjective Interval history since last seen: Arrive with patient resting in bed. Patient reports that he is feeling hot. He states that his abdominal pain is improving, but he still feels bloated. He states that he has been ambulating in the room. Of note he describes that he did become slightly short of breath when trying to ambulate from the ICU to his new room. This resolved with sitting breaks. Exam Const General: cooperative, healthy appearing and comfortable Orientation: alert and oriented x3 Resp Effort & Inspection: normal respiratory effort, no audible wheezes and no cough GI Inspection: normal to inspection Palpation: soft, no guarding and tender Other: Mild erythema noted around port site dressings. Dressings were removed Incisions are well approximated with dany in place. Objective Last Vital Signs Temp 36.5 C 10/31/22 07:19 Pulse 75 10/31/22 07:19 Resp 19 10/31/22 07:19 BP 166/86 H 10/31/22 07:19 Pulse Ox 93 02/22/23 07:19 Laboratory Results - last 24 hr 10/31/22 10/31/22 06:00 06:00 WBC 10.82 H RBC 4.91 Hgb 14.8 Hct 43.7 MCV 89 MCH 30.1 MCHC 33.9 RDW 12.1 Plt Count 199 MPV 9.6 Immature Gran % 2.3 Neutrophils % 73.0 Lymphocytes % 12.6 Monocytes % 10.4 Eosinophils % 1.1 Basophils % 0.6 Nucleated RBC % 0.0 Absolute Neutrophils 7.90 H Absolute Lymphocytes 1.36 Absolute Monocytes 1.13 H Absolute Eosinophils 0.12 Absolute Basophils 0.06 Sodium 136 Potassium 3.5 Chloride 103 Carbon Dioxide 22.1 Anion Gap 10.9 BUN 19 H Creatinine 1.2 Est GFR (CKD-EPI 2020) 65.87 Glucose 139 H Calcium 8.3 L Total Bilirubin 1.2 H AST 38 H ALT 52 Alkaline Phosphatase 77 Total Protein 6.0 L Albumin 2.3 L Time Spent with Patient Time Spent with Patient: <25 minutes Time was spent: preparing to see the patient(eg.review tests) and counseling the patient
[2022-10-31] MEDS: Simethicone 80 MG CHEW 40 MG PO ×4 (09:48→21:48)
[2022-10-31] MEDS: Normal Saline Flush 10 ML SYR IVP (09:49)
[2022-10-31 11:20] VITALS: BP 167/86; PULSE 72; RESP 19; TEMP 36.4; O2SAT 95
--- NOTE | 2022-10-31 11:55 | PDOC.CMPRO ---
- If Service Date Differs Date of service: 10/31/22 Time of Service: 11:55 Care Management Progress Note S/O: Gaurav remains inpatient, now on Med/Surg floor. Per provider, he is tolerating post op diet and will be evaluated by PT, encouraged to be out of bed and ambulating. CM continues to follow. A: 67 year old male admitted to [facility] 10/27/22 for acute cholecystitis P: Gaurav will return home once medically cleared. His s/o, Saniya will drive him home via private vehicle. He will follow up with his PCP and discharge plan of care. CM will continue to follow.
[2022-10-31] MEDS: Insulin Aspart 300 UNITS/3 ML PEN SC ×2 (12:10→17:25)
--- NOTE | 2022-10-31 13:29 | CHAPLAIN ---
Gaurav was resting in bed when I visited. He was pleasant and engaged in a conversation. I introduced myself and explained my role. Gaurav said h is in touch with this girl friend and daughter, who live locally. He told me he's feeling okay and things are fine at the moment.
[2022-10-31 15:44] VITALS: BP 176/85; PULSE 71; RESP 18; TEMP 37.1; O2SAT 96
--- NOTE | 2022-10-31 16:41 | PT.INIE ---
PT Notes Visit Reasons: Acute Cholecystitis Inpatient Physical Therapy Evaluation Date: 10/31/2022 Referring Doctor: PT Orders: PT CONSULT: Evaluate Precautions: Fall precautions Patient Profile/Admitting Diagnosis: 67-year-old male who was admitted on 10/28 with cholecystitis and underwent a cholecystectomy postop day #3 PMHX: PFSH All Active Problems?(Updated 10/27/22 @ 22:04 by WINIFRED Iraheta) Epigastric abdominal pain (Acute) Chest pain (Acute) Acute cholecystitis (Acute) Medical History? Anxiety Depression Diabetes GERD (gastroesophageal reflux disease) Gout HTN (hypertension) Hx of hyperlipidemia Surgical History? H/O thyroid cyst CystectomyHistory of hernia repair History of hip replacement Social History/Home Situation: Lives with his girlfriend in a one-story private home with no stairs. His bathroom has a walk-in shower with a shower chair and flexible hose. He is retired. Current Functional Limitations: Was independent with all ADLs, drives, and performs social science instructor work. Equipment Owned/DME: Shower chair flexible hose Subjective: Patient complains of intermittent discomfort throughout the abdominal area. This is more noticeable after eating. Does not increase with movement. Also complains of shortness of breath with exertion which is similar to preop. Objective: General Observation: Into the room patient is resting comfortably in bed. Pleasant, cooperative and responds appropriately to questions Mental Status: Alert and oriented x3 Pain: Intermittent abdominal discomfort and rates his discomfort as a 2/10 Vital Signs: His resting pulse is 81 bpm/O2 sat at 96%, and 20 breaths/min. Following ambulation his O2 sat is 96%/pulse 84 bpm and respiratory rate is 28 breaths per minute ROM: Has a functional range of motion throughout Strength: Strength is generally rated -5/5 throughout. Did not test his core due to his recent surgery Neuro: KJ's are +2 and AJ's are +1 symmetrical, sensations intact to light touch, has full motor control. Fingertips to nose is accurate without ataxia and rapid repetitive arm movements are unimpaired Bed Mobility/Transfers: He is independent with assuming the supine to sitting to standing positions Gait: He ambulated greater than 200 feet independently with minimal contact guarding and assisting with pushing his IV pole. He was able to walk on his heels and toes with contact guarding. Balance: Static Sitting: Stable Dynamic Sitting: Stable Static Standing: Stable Dynamic Standing: His unilateral standing balance was less than 3 seconds. He was able to stand with his feet together and had a negative Romberg sign Special Tests: Mobility Limitations Standardized Measure [facility] AM-PAC 6 clicks Basic Mobility Inpatient Short Form: Raw Score: 22 standardized Score: 5.43 CMS Score: 20.91 Informed Consent/Education: Patient instructed in purpose of PT consult and plan of care. Assessment: Patient is a 67year old male referred to physical therapy services with the diagnosis of status post cholecystectomy. Patient presents with clinical signs and symptoms consistent with this diagnosis, as demonstrated by the following impairment level findings: Independent with his bed mobility activities and minimal contact guarding with ambulation with a stable gait. He feels weak with poor endurance throughout, but comfortable and strong enough to eventually return home once his surgeon clears him.. Impairments are contributing to the following functional limitations: AMPAC score. Patient is assessed as a Moderate 83314 complexity based on the following: History: See comorbidities and social history Examination: See above for functional limitations and impairments Presentation: Evolving Decision Making: Moderate complexity based on his clinical findings Goals: Goals X1 week Independent ambulation without assistive device along with ascending and descending stairs safely. Improve his cardiopulmonary conditioning and endurance Plan of Care/Treatment Plan: 1-2x/day, 7 days/week x 1 week. Plan of care has been reviewed with the HEAD ANIMAL TRAINER providing the service under Physical Therapy direction. Initiate Physical Therapy intervention for strengthening, gait, stairs, balance training. DISCHARGE RECOMMENDATIONS: Home with no services TREATMENT CODE/TIME: 72132/39588 Disclaimer: This note was created using [employer] voice recognition software. It was reviewed for major content. However, there may be multiple small discrepancies and errors due to the voice recognition aspects of the software.
[2022-10-31 19:34] VITALS: BP 162/86; PULSE 80; RESP 18; TEMP 37.2; O2SAT 95
[2022-10-31] MEDS: Enoxaparin 40 MG/0.4 ML SYR SC (21:48)
[2022-10-31] MEDS: Pantoprazole 40 MG VIAL IVP (21:52)
[2022-10-31 22:52] VITALS: BP 159/82; PULSE 91; RESP 17; TEMP 37.5; O2SAT 95
[2022-11-01] MEDS: PIPERACILLIN/TAZO 3.375 GM in Normal Saline 100 ML IVPB ×2 (02:11→10:50)
[2022-11-01 03:34] VITALS: BP 161/92; PULSE 72; RESP 17; TEMP 37.4; O2SAT 95
[2022-11-01 06:25] LABS: Abs Immature Grans 0.44 10^3/uL (0.0-0.06); Absolute Basophil Count 0.03 10^3/uL (0.0-0.2); Absolute Eosinophil Count 0.14 10^3/uL (0.0-0.7); Absolute Lymphocyte Count 1.41 10^3/uL (1.2-3.4); Absolute Monocyte Count 1.34 10^3/uL (0.1-0.8); Absolute Neutrophil Count 8.18 10^3/uL (1.2-6.7); Basophils % 0.3; Eosinophils % 1.2; HCT 43.9 % (40.0-50.0); HGB 14.8 g/dL (13.5-17.5); Immature Grans % 3.8; Lymphocytes % 12.2; MCHC 33.7 % (32.0-36.0); MCV 89 fL (80-95); MPV 9.9 fL (8.0-11.0); Monocytes % 11.6; Neutrophils % 70.9; Nucleated RBC 0.2 % (0.0-0.3); Platelet Count 218 10^3/uL (130-400); RBC 4.93 10^6/uL (4.36-5.78); RDW 12.2 % (11.8-14.1); RDW-SD 39.8 fL; WBC 11.54 10^3/uL (4.4-10.8)
[2022-11-01 06:45] LABS: ALT 66 U/L (16-63); AST 40 U/L (15-37); Albumin 2.4 g/dL (3.4-5.0); Alkaline Phosphatase 80 U/L (46-116); BUN 17 mg/dL (7-18); Bilirubin, Total 0.8 mg/dL (0.2-1.0); CREATININE 1.2 mg/dL (0.70-1.30); Calcium 8.3 mg/dL (8.5-10.1); Chloride 103 mmol/L (98-107); Estimated GFR 65.87 (mL/min/1.73m2); Glucose 168 mg/dL (74-106); Potassium 3.5 mmol/L (3.5-5.1); Sodium 137 mmol/L (136-145)
[2022-11-01 07:12] LABS: Diff Comment Agrees w/ Instrument; RBC Morphology Normal
[2022-11-01 08:54] VITALS: BP 164/98; PULSE 90; RESP 16; TEMP 36.1; O2SAT 96
[2022-11-01] MEDS: Aspirin E.C. 81 MG TABEC PO (09:05)
[2022-11-01] MEDS: Normal Saline Flush 10 ML SYR IVP ×2 (09:06→10:51)
[2022-11-01] MEDS: Simethicone 80 MG CHEW 40 MG PO ×4 (09:06→21:56)
[2022-11-01] MEDS: Venlafaxine 150 MG CAPCR PO (09:06)
[2022-11-01] MEDS: Budesonide/Formoterol 160/4.5 6 GM 60 PUFF INH IH ×2 (09:18→20:09)
--- NOTE | 2022-11-01 09:25 | W.PM.PROGNOT ---
Date of Service Date of service: 11/01/22 Time of Service: 09:25 Assessment and Plan Assessment and plan (1) Acute cholecystitis: Status: Acute Assessment and plan: POD#4 s/p laparoscopic cholecystectomy. We will trial a suppository to promote rectal stimulation and hopefully stimulate a bowel movement. Strongly encouraged the patient to continue to be sitting up in the chair throughout the day as well as ambulating frequently. We will continue the use of Mylanta to help with discomfort associated with abdominal distention. Tolerating post-op diet Continue with PT OOB and ambulate DVT/GI prophylasxis I saw and examined Gaurav, and I agree with Ariana's note. He still little distended today. But he is having some bowel function. We will see how his diet goes tonight, and if all is well in the morning, we will discharge him at that time. (2) Septic shock: Status: Acute (3) SHELBI (acute kidney injury): Status: Acute (4) Respiratory failure with hypoxia: Status: Acute (5) COPD (chronic obstructive pulmonary disease): Status: Chronic Subjective Subjective Interval history since last seen: The patient reports he is feeling slightly improved today however he continues to feel bloated. He states that the Mylanta certainly helped improve his symptoms yesterday. He did not have any bowel movements yesterday. He denies passing any flatus. Exam Const General: cooperative, healthy appearing and comfortable Orientation: alert and oriented x3 Resp Effort & Inspection: normal respiratory effort, no audible wheezes and no cough GI Inspection: distended Palpation: soft, no guarding and tender Percussion: tympanic to percussion Auscultation: normal bowel sounds Objective Last Vital Signs Temp 36.1 C L 11/01/22 08:54 Pulse 90 11/01/22 08:54 Resp 16 11/01/22 08:54 BP 164/98 H 11/01/22 08:54 Pulse Ox 96 11/01/22 08:54 Laboratory Results - last 24 hr 11/01/22 11/01/22 05:42 05:42 WBC 11.54 H RBC 4.93 Hgb 14.8 Hct 43.9 MCV 89 MCH 30.0 MCHC 33.7 RDW 12.2 Plt Count 218 MPV 9.9 Immature Gran % 3.8 Neutrophils % 70.9 Lymphocytes % 12.2 Monocytes % 11.6 Eosinophils % 1.2 Basophils % 0.3 Nucleated RBC % 0.2 Absolute Neutrophils 8.18 H Absolute Lymphocytes 1.41 Absolute Monocytes 1.34 H Absolute Eosinophils 0.14 Absolute Basophils 0.03 RBC Morphology Normal Sodium 137 Potassium 3.5 Chloride 103 Carbon Dioxide 22.0 Anion Gap 12.0 H BUN 17 Creatinine 1.2 Est GFR (CKD-EPI 2020) 65.87 Glucose 168 H Calcium 8.3 L Total Bilirubin 0.8 AST 40 H ALT 66 H Alkaline Phosphatase 80 Total Protein 6.0 L Albumin 2.4 L Time Spent with Patient Time Spent with Patient: <25 minutes Time was spent: counseling the patient
[2022-11-01] MEDS: Insulin Aspart 300 UNITS/3 ML PEN SC ×2 (12:30→17:10)
[2022-11-01 13:08] VITALS: BP 168/91; PULSE 84; RESP 18; TEMP 35.9; O2SAT 96
--- NOTE | 2022-11-01 14:17 | PT.INTREAT ---
Date of service: 11/01/22 Time of Service: 10:10 PT Notes Visit Reasons: Acute Cholecystitis Inpatient Physical Therapy Treatment Note [facility] Date: 11/01/2020 PRECAUTIONS: Activity as tolerated SUBJECTIVE: Gaurav is pleasant and agreeable to participating in PT. He reports that he feels he is basically back to his baseline level of function. He reports that he has been transferring and ambulating within his room independently. OBJECTIVE: PAIN: No c/o pain BED MOBILITY/TRANSFERS Supine-sit: I with HOB flat Sit-supine: I with HOB flat Sit-stand: I Stand-sit: I Bed-chair: I Chair-bed: I GAIT Assistive Device: No AD Weight bearing: Full Assist: I Distance: 350' Deviation: Gait unremarkable, appropriate and steady pacing, minimal SOB (which he reports is his baseline due to asthma) STAIRS: Up/down 3x4 and 2x6 using U rail and a step-over pattern independently. ASSESSMENT: Patient demonstrates independence with all bed mobility, transfers, and ambulation without an assistive device at this time. Patient has been cleared for independence with all mobility within his room and with hallway ambulation at this time. PLAN: Discharge from PT, as patient has likely returned to baseline level of function, demonstrating independence with all functional mobility at this time. TREATMENT CODE/TIME: 10 minutes; 71000 (10:10)
--- NOTE | 2022-11-01 15:01 | CMPROGNOTE_ITS ---
- If Service Date Differs Date of service: 11/01/22 Time of Service: 15:01 Care Management Progress Note S/O: Gaurav remains inpatient, discharged from PT today as he is ambulating without assistance. No change to overall plan. CM continues to follow. A: 67 year old male admitted to [facility] 10/27/22 for acute cholecystitis P: Gaurav will return home once medically cleared. His s/o, Saniya will drive him home via private vehicle. He will follow up with his PCP and discharge plan of care. CM will continue to follow.
[2022-11-01 15:14] VITALS: BP 168/89; PULSE 84; RESP 16; TEMP 36.7; O2SAT 97
[2022-11-01 20:06] VITALS: BP 140/87; PULSE 83; RESP 18; TEMP 37.7; O2SAT 96
[2022-11-01] MEDS: Acetaminophen 325 MG TAB 650 MG PO (20:06)
[2022-11-01] MEDS: Enoxaparin 40 MG/0.4 ML SYR SC (21:57)
[2022-11-01 23:54] VITALS: BP 153/80; PULSE 79; RESP 18; TEMP 36.5; O2SAT 96
[2022-11-01] MEDS: Pantoprazole 40 MG VIAL IVP (23:55)
[2022-11-02] MEDS: PIPERACILLIN/TAZO 3.375 GM in Normal Saline 100 ML IVPB ×2 (00:45→08:40)
[2022-11-02 03:59] VITALS: BP 158/80; PULSE 71; RESP 20; TEMP 36.8; O2SAT 95
--- NOTE | 2022-11-02 07:11 | W.PM.PROGNOT ---
Date of Service Date of service: 11/02/22 Time of Service: 07:11 Assessment and Plan Assessment and plan (1) Acute cholecystitis: Status: Acute Assessment and plan: POD#5 s/p laparoscopic cholecystectomy. Patient is tolerating postoperative diet. (+) BMs No fevers, chills or night sweats. Patient was working with physical therapy and was independent with all transfers and ambulation. Continue pulmonary toilet Encouraged getting out of bed and ambulation throughout the day even once home. Pain is well controlled. Discharge home later today. I saw and examined Gaurav, and I agree with Ariana's notes. Gaurav looks great, he is tolerating a diet, and he is having normal bowel function. We will discharge him today, and he can follow-up in the office for routine care. (2) Septic shock: Status: Acute (3) SHELBI (acute kidney injury): Status: Acute (4) Respiratory failure with hypoxia: Status: Acute (5) COPD (chronic obstructive pulmonary disease): Status: Chronic Subjective Subjective Interval history since last seen: Arrived the patient sitting up in bed. He states he is feeling significantly better compared to yesterday. He has some slight abdominal distention. But otherwise he states he feels much better since having bowel movement yesterday. He is tolerating regular diet. He denies any nausea, vomiting or diarrhea. Patient denies having any fevers, chills or night sweats. Exam Const General: cooperative, healthy appearing and comfortable Orientation: alert and oriented x3 Resp Effort & Inspection: normal respiratory effort, no audible wheezes and no cough GI Inspection: normal to inspection Palpation: soft, no guarding and tender Percussion: tympanic to percussion Objective Last Vital Signs Temp 36.8 C 11/02/22 03:59 Pulse 71 11/02/22 03:59 Resp 20 11/02/22 03:59 BP 158/80 H 11/02/22 03:59 Pulse Ox 95 11/02/22 03:59 Laboratory Results - last 24 hr 11/01/22 05:42 WBC 11.54 H RBC 4.93 Hgb 14.8 Hct 43.9 MCV 89 MCH 30.0 MCHC 33.7 RDW 12.2 Plt Count 218 MPV 9.9 Immature Gran % 3.8 Neutrophils % 70.9 Lymphocytes % 12.2 Monocytes % 11.6 Eosinophils % 1.2 Basophils % 0.3 Nucleated RBC % 0.2 Absolute Neutrophils 8.18 H Absolute Lymphocytes 1.41 Absolute Monocytes 1.34 H Absolute Eosinophils 0.14 Absolute Basophils 0.03 RBC Morphology Normal Time Spent with Patient Time Spent with Patient: <25 minutes Time was spent: counseling the patient
--- NOTE | 2022-11-02 07:18 | DSE_ITS ---
Date of service: 11/02/22 Time of Service: 07:18 DS: Diagnosis Discharge Diagnosis (1) Acute cholecystitis: Status: Acute (2) Septic shock: Status: Acute (3) SHELBI (acute kidney injury): Status: Acute (4) Respiratory failure with hypoxia: Status: Acute (5) COPD (chronic obstructive pulmonary disease): Status: Chronic Discharge Plan Disposition Patient Disposition: Home Condition: Good Discharge Details Reason For Visit: Acute Cholecystitis Admit Date/Time: 10/27/22 22:26 Admit Provider: Carlitos Jamison Attending Provider: Carlitos Jamison Primary Care Provider: [facility] Hospital Course Hospital Course: 67-year-old male with history of COPD presents to the ER on 10/26 with chest pain and epigastric pain, patient was worked up for cardiac etiologies and was discharged home with treatment of GERD. Patient returned to the ER the following day on 10/27 for continued abdominal pain. It was noted on his labs that he had a significant leukocytosis and CT scan revealed cholecystitis. Patient was admitted to the surgical service and underwent laparoscopic cholecystectomy followed by with IV fluids, IV antibiotics. Postoperatively the patient did well after fluid resuscitation and IV antibiotics. Over the course of the following 5 days the patient was slowly advanced through postoperative diet and work with physical therapy to ensure patient was independent with mobility for discharge. Patient's abdominal pain has progressively improved for the course of the 5 days and patient is now comfortably able to sleep on his right side. No fevers, chills or night sweats have been noted for. Leukocytosis has been trending downward. Patient will need to follow-up in the surgical office next week to have his dany removed. Home Meds and New Rx's Prescriptions: Continued lisinopril 20 MG tablet 5 mg PO DAILY venlafaxine [Effexor XR] 150 MG capsule,extended release 24hr 150 mg PO DAILY aspirin [Aspir-81] 81 MG tablet,delayed release (DR/EC) 81 mg PO DAILY propranolol 40 MG tablet 40 mg PO DAILY omeprazole 20 MG capsule,delayed release(DR/EC) 20 mg PO DAILY albuterol sulfate [Ventolin HFA] 60 PUFF HFA aerosol inhaler 2 puff Inhalation Q3H PRN PRN cholecalciferol (vitamin D3) 1,000 UNITS tablet 2,000 units PO DAILY budesonide-formoterol [Symbicort] 10.2 GM HFA aerosol inhaler 10.2 gm Inhalation BID indomethacin 50 MG capsule 50 mg PO DAILY famotidine 20 mg tablet 20 mg PO DAILY sucralfate [Carafate] 1 gram tablet 1 gm PO QACHS Qty: 14 0RF Discharge Instructions Instructions: Laparoscopic Cholecystectomy (DC) Stand Alone Forms: Nursing Discharge Form Referrals: Мария Ponce DO [OSTEOPATHIC DOCTOR] - 11/09/22 1:15 [facility] [Primary Care Provider] - (Called and spoke to the nurse at [place], she will give you a call with an appointent within the next 2 weeks. ) Activity:: Activity as Tolerated Equipment/Supplies:: No Equipment Needed Diet:: Low-fat Discharge Orders Discharge Orders: Discharge Order (Routine); Ordered 11/02/22 Ordered By: Marnie Goel Discharge Data Discharge Date/Time-TO BE ENTERED AT DEPARTURE: 11/02/22 13:56 DS: Summary Time Spent with Patient providing and/or coordinating discharge services: Less than 30 minutes Status at Discharge Functional status at discharge: independent ambulation Overall status at discharge: patient is back to baseline Mental Status: mental status grossly normal Speech and Movement: speech and movement normal Mood: congruent mood Affect: normal affect Exam Psych Mental Status: mental status grossly normal Speech and Movement: speech and movement normal Mood: congruent mood Affect: normal affect DS: Data Vitals/I&O Vitals and I&O: Vital Signs Temperature 36.8 C 11/02/22 03:59 Temperature Source Tympanic 11/02/22 03:59 Pulse 71 11/02/22 03:59 Pulse Rhythm Regular 11/02/22 03:31 Pulse 70 10/30/22 00:12 Respiratory Rate 20 11/02/22 03:59 Respiratory Effort Normal, Non-Labored 11/02/22 03:31 Respiratory Depth Normal 11/02/22 03:31 Respiratory Pattern Normal 11/02/22 03:31 Blood Pressure 158/80 H 11/02/22 03:59 Blood Pressure Mean 85 10/30/22 04:01 Blood Pressure Position Supine 10/28/22 20:00 Pulse Oximetry 95 11/02/22 03:59 Respiratory End-tidal CO2 30 10/28/22 17:36 Oxygen Delivery Method Room Air 11/02/22 03:59 Oxygen Flow Rate 0 11/02/22 03:59 Pain Level 0 11/02/22 03:59 Comment RN informed of bp 10/31/22 15:44 Intake & Output 11/01/22 11/02/22 11/02/22 18:59 06:59 18:59 Intake Total 100 / 230 130 / 230 Output Total 850 / 1300 450 / 1300 Balance -750 / -1070 -320 / -1070 Weight 86.1 kg 84.3 kg Intake: IV 100 / 230 130 / 230 Output: Urine 850 / 1300 450 / 1300 Other: Urine Color Yellow Yellow Urine Appearance Clear Clear Urine Odor None Normal Stool Size Moderate Stool Characteristics Soft Liquid Voiding Methods Urinal Urinal PFSH All Active Problems (Updated 11/01/22 @ 03:33 by Seda Martinez DO) Biliary colic (Acute) Respiratory failure with hypoxia (Acute) Elevated LFTs (Acute) Leukocytosis (Acute) Septic shock (Acute) SHELBI (acute kidney injury) (Acute) COPD (chronic obstructive pulmonary disease) (Chronic) Sepsis (Acute) Epigastric abdominal pain (Acute) Chest pain (Acute) Acute cholecystitis (Acute) Medical History Anxiety Depression Diabetes GERD (gastroesophageal reflux disease) Gout HTN (hypertension) Hx of hyperlipidemia Surgical History H/O thyroid cyst Cystectomy History of hernia repair History of hip replacement Social History Smoking/Tobacco Use Status: Former Tobacco Use Quit Date: 06/09/22 Smoking risk assessment performed?: Yes Alcohol Intake: former Drug use: Never Substance use type: does not use Do you feel safe at home: Yes Do you feel safe in your relationship?: Yes Time Spent with Patient Time Spent with Patient: <45 minutes Time was spent: counseling the patient
[2022-11-02 07:32] VITALS: BP 167/82; PULSE 73; RESP 16; TEMP 36.5; O2SAT 95
[2022-11-02] MEDS: Budesonide/Formoterol 160/4.5 6 GM 60 PUFF INH IH (07:55)
[2022-11-02] MEDS: Simethicone 80 MG CHEW 40 MG PO ×2 (08:37→12:24)
[2022-11-02] MEDS: Insulin Aspart 300 UNITS/3 ML PEN SC ×2 (08:38→12:24)
[2022-11-02] MEDS: Aspirin E.C. 81 MG TABEC PO (08:38)
[2022-11-02] MEDS: Venlafaxine 150 MG CAPCR PO (08:40)
[2022-11-02] MEDS: Normal Saline Flush 10 ML SYR IVP (08:40)
--- NOTE | 2022-11-02 10:31 | PDOC.CMDIS ---
- If Service Date Differs Date of service: 11/02/22 Time of Service: 10:32 LACE Index Scoring Tool - Questions: Length of Stay (in days): 4 - 6 Acuity (Admit via E.D.?): Yes Comorbidities: Diabetes w/o Complication E.D. Visits: 2 - Answers: Total Score: 10 Risk of Readmission: High Risk Care Management Discharge Reason for Hospitalization: Acute cholecystitis Discharge Plan: Gaurav will return home once medically cleared. His s/o, Saniya will drive him home via private vehicle. He will follow up with his P[facility] per documentation), surgical services and discharge plan of care. Patient/Family Education Needs: Review discharge instructions, discuss Ask Me Three.
[2022-11-02 11:33] VITALS: BP 145/85; PULSE 82; RESP 16; TEMP 37; O2SAT 96
== END 2022-11-02 13:56 | disposition home or self-care (01) | DRG 853 ==
LOC: ER 22:04 → ICU 10-28 18:06 → MS 10-30 16:49 → ICU 04-10 14:16 → MS 04-10 14:16
PROVIDERS: Admitting Provider Surgery; Emergency Provider Physician Assistant; Visit Provider Surgery
PROC: 0FT44ZZ Resection of Gallbladder, Percutaneous Endoscopic Approach (ICD-10-PCS; CPT 47562; principal; 2022-10-28 13:20)
DX: A41.9 Sepsis, unspecified organism (principal); J96.01 Acute respiratory failure with hypoxia; N17.0 Acute kidney failure with tubular necrosis; R65.21 Severe sepsis with septic shock; K80.00 Calculus of gallbladder with acute cholecystitis without obstruction; K82.A1 Gangrene of gallbladder in cholecystitis; E11.65 Type 2 diabetes mellitus with hyperglycemia; K21.9 Gastro-esophageal reflux disease without esophagitis; I10 Essential (primary) hypertension; E78.5 Hyperlipidemia, unspecified; J44.9 Chronic obstructive pulmonary disease, unspecified; F32.A Depression, unspecified; F41.9 Anxiety disorder, unspecified; M10.9 Gout, unspecified; Z87.891 Personal history of nicotine dependence
CPT/HCPCS: 47562; 36415; 80053; 83690; 87635; 93005; 94640; 96361; 96365; 96366; 96375; 96376; 97116; 97162; 97530; 99285; J1650; 74177; 81003; 81015; 83036; 83605; 84484; 85025; 85610; 85730; 88304; 93010; 94664; 99223; J0131; J1100; J1170; J1885; J2270; J2405; J2543; J2704; J3490

== ENCOUNTER 2023-03-14 11:23 | Inpatient (IN) | payer OTHER, SELFPAY ==
[2023-03-14 11:26] VITALS: BP 125/73; PULSE 73; RESP 15; TEMP 36.4; O2SAT 99
[2023-03-14 12:18] LABS: Abs Immature Grans 0.13 10^3/uL (0.0-0.06); Absolute Basophil Count 0.07 10^3/uL (0.0-0.2); Absolute Eosinophil Count 0.12 10^3/uL (0.0-0.7); Absolute Monocyte Count 0.62 10^3/uL (0.1-0.8); Absolute Neutrophil Count 7.47 10^3/uL (1.2-6.7); Basophils % 0.7; Eosinophils % 1.3; HCT 50.1 % (40.0-50.0); HGB 17.5 g/dL (13.5-17.5); Immature Grans % 1.4; Lymphocytes % 10.6; MCH 29.8 pg (27.0-33.0); MCHC 34.9 % (32.0-36.0); MCV 85 fL (80-95); MPV 10.3 fL (8.0-11.0); Monocytes % 6.6; Neutrophils % 79.4; Platelet Count 207 10^3/uL (130-400); RBC 5.87 10^6/uL (4.36-5.78); RDW 12.6 % (11.8-14.1); RDW-SD 38.9 fL; WBC 9.41 10^3/uL (4.4-10.8)
[2023-03-14 12:29] LABS: Prothrombin Time 9.8 sec (9.3-11.0)
[2023-03-14 12:43] LABS: ALT 618 U/L (16-63); AST 282 U/L (15-37); Albumin 3.8 g/dL (3.4-5.0); Alkaline Phosphatase 380 U/L (46-116); Anion Gap 11.7 mmol/L (3-11); BUN 19 mg/dL (7-18); Bilirubin, Direct 13.9 mg/dL (0.0-0.2); CO2 22.3 mmol/L (21.0-32.0); Calcium 9.2 mg/dL (8.5-10.1); Chloride 92 mmol/L (98-107); Estimated GFR 81.47 (mL/min/1.73m2); Glucose 370 mg/dL (74-106); Lipase 374 U/L (16-77); Potassium 4.5 mmol/L (3.5-5.1); Sodium 126 mmol/L (136-145); Total Protein 7.7 g/dL (6.4-8.2)
[2023-03-14 13:09] VITALS: BP 115/73; PULSE 66; RESP 16; O2SAT 97
--- NOTE | 2023-03-14 13:15 | DI.US_ITS ---
Exam(s) US ABDOMEN LIMITED EXAM: US ABDOMEN LIMITED CLINICAL HISTORY: abd pain, elevated liver enzymes/lipase, bili TECHNIQUE: Ultrasound abdomen performed using standard protocol. COMPARISON: CT CT ABDOMEN PELVIS W from 10/27/2022 US POCUS EXAM from 10/28/2022 FINDINGS: LIVER: Normal size. Mildly increased echogenicity consistent with hepatic steatosis.. No focal live r lesions are seen.. GALLBLADDER: Status post cholecystectomy BILIARY SYSTEM: Common bile duct dilated at 12 millimeters. Right KIDNEY: No evidence of renal calculi. No evidence of hydronephrosis. No renal mass or cyst iden tified. PANCREAS: Normal where visualized. ABDOMINAL AORTA AND IVC: Visualized portions normal caliber. ASCITES: None seen. IMPRESSION: Status post cholecystectomy. Dilated common bile duct. No obstructing stone visualized on this exam . DATA REPOSITORY:
[2023-03-14] MEDS: Normal Saline 1,000 ML 1000 ML IV (14:42)
[2023-03-14 14:44] VITALS: BP 130/74; PULSE 71; RESP 16; O2SAT 98
--- NOTE | 2023-03-14 14:45 | NUR.NOTE ---
Nursing Note: Report to Mariela SALDANA/Adriana SALDANA
[2023-03-14 14:55] LABS: BE (Venous) -5 mmol/L (-2-3); HCO3 (Venous) 21 mmol/L (23-28); O2 Sat (Venous) 83 %; TCO2 (Venous) 18 mmol/L (24-29); pCO2 (Venous) 36 mmHg (41-51); pH (Venous) 7.37 (7.31-7.41); pO2 (Venous) 45 mmHg
--- NOTE | 2023-03-14 15:44 | ED.GENADUL_ITS ---
Discharge Plan Disposition Patient Disposition: Admit to [facility] Discharge Details Clinical Impression: Abdominal pain with jaundice, Acute hyponatremia Admit Date/Time: 03/14/23 15:26 Admit Provider: Kay Molina Attending Provider: Kay Molina Primary Care Provider: Unknown,Unknown ED Provider: Alisha Tolliver Discharge Data Discharge Date/Time-TO BE ENTERED AT DEPARTURE: 03/14/23 17:07 Medical Decision Making 68-year-old gentleman status post cholecystectomy in October presenting with abdominal pain and skin discoloration Labs were ordered in addition to ultrasound no leukocytosis, hyponatremia, sodium of 126, gap of 11.7, CO2 of 22.3, creatinine 1, glucose 370 in this noninsulin-dependent diabetic conjugated bilirubin 13.9, total bili 17, AST 282, ALT 618, alk phos of 380 and lipase of 374 On exam, patient is jaundiced and icteric, he has mild right upper quadrant tenderness He is fully alert and oriented and in no acute distress His vitals are stable Ultrasound was ordered for further differentiation and has mildly dilated common bile duct at 11.8, no other acute findings Case was discussed with Dr. Krueger who will follow the patient Patient will be admitted to the hospitalist secondary to diabetes, co morbidities, and hyponatremia history, case discussed with Dr. Molina who will admit patient to her service, patient received 1 L of normal saline, will recheck blood glucose as initial was 370 Patient agreeable to admission to the hospitals right now, in stable condition We discussed antibiotics with Dr. Krueger, however at this time without leukocytosis, this was not indicated HPI General Date/Time Provider Initiated Documentation: 03/14/23 11:33 . HPI Narrative: This 68-year-old male presents with report of jaundice which is noted by his girlfriend today. Denies fever or chills. States he is not feeling lightheaded and having aguila-colored stools with some abdominal pain for the past several weeks. He states the pain is intermittent. He denies known exacerbating or relieving factors. He states he woke this morning and his girlfriend relayed to him that his color had changed and he was now yellow . He does not drink alcohol or use illicit drugs per patient. He is status post cholecystectomy at the end of October per patient. He states his urine has also been dark. Related Data Home Medications Medication Instructions Recorded Confirmed albuterol sulfate 90 mcg/actuation 2 puff inhalation Q3H PRN PRN 11/11/16 03/14/23 aerosol inhaler (Ventolin HFA) budesonide-formoterol HFA 160 10.2 g inhalation BID 11/11/16 03/14/23 mcg-4.5 mcg/actuation aerosol inhaler (Symbicort) cholecalciferol (vitamin D3) 25 2,000 units PO DAILY 11/11/16 03/14/23 mcg (1,000 unit) tablet venlafaxine 150 mg 150 mg PO DAILY 11/11/16 03/14/23 capsule,extended release 24 hr (Effexor XR) aspirin 81 mg chewable tablet 81 mg PO DAILY 03/14/23 03/14/23 lisinopril 5 mg tablet 5 mg PO DAILY 03/14/23 03/14/23 carboxymethylcellulose sodium 0.5 1 drp ophthalmic (eye) QID PRN PRN 03/15/23 03/15/23 % eye drops in a dropperette Dry Eyes doxazosin 2 mg tablet 2 mg PO HS 03/15/23 03/15/23 metformin 1,000 mg tablet 1,000 mg PO DAILY@1700 03/15/23 03/15/23 montelukast 5 mg chewable tablet 10 mg PO DAILY allergies 03/15/23 03/15/23 omeprazole 20 mg capsule,delayed 20 mg PO DAILY 03/15/23 03/15/23 release pravastatin 10 mg tablet 10 mg PO QPM 03/15/23 03/15/23 propranolol 40 mg tablet 40 mg PO DAILY 03/15/23 03/15/23 Allergies Allergy/AdvReac Type Severity Reaction Status Date / Time No Known Allergies Allergy Unverified 03/14/23 11:30 General Stated Complaint: GenMedical LAILA: 3 PFSH All Active Problems (Updated 03/17/23 @ 17:31 by WINIFRED Hargrove) Acute hyponatremia (Acute) Abdominal pain with jaundice (Acute) Acute cholecystitis due to biliary calculus (Acute) Leukocytosis (Acute) COPD (chronic obstructive pulmonary disease) (Chronic) Medical History (Updated 03/17/23 @ 17:31 by WINIFRED Hargrove) Acute cholecystitis Anxiety Depression Diabetes GERD (gastroesophageal reflux disease) Gout HTN (hypertension) Hx of hyperlipidemia Sepsis Surgical History (Updated 11/09/22 @ 15:34 by Мария Ponce DO) H/O thyroid cyst Cystectomy History of hernia repair History of hip replacement S/P laparoscopic cholecystectomy Social History Smoking/Tobacco Use Status: Former Tobacco Use Quit Date: 06/09/22 Smoking risk assessment performed?: Yes Alcohol Intake: former Drug use: Never Substance use type: does not use Housing: house Do you feel safe at home: Yes Do you feel safe in your relationship?: Yes Course Vital Signs Vital signs: Vital Signs Temperature 36.4 C L 03/14/23 11:26 Pulse 73 03/14/23 11:26 Respiratory Rate 15 03/14/23 11:26 Blood Pressure 125/73 03/14/23 11:26 Pulse Oximetry 99 03/14/23 11:26 Temperature 36.4 C L 03/14/23 11:26 Temperature Source Oral 03/14/23 11:26 Pulse 71 03/14/23 14:44 Respiratory Rate 16 03/14/23 14:44 Respiratory Effort Normal 03/14/23 13:10 Blood Pressure 130/74 03/14/23 14:44 Blood Pressure Position Sitting 03/14/23 11:26 Pulse Oximetry 98 03/14/23 14:44 Oxygen Delivery Method Room Air 03/14/23 14:44 Oxygen Flow Rate 0 03/14/23 14:44 Pain Level 0 03/14/23 14:44 Lab/Test Results Lab/Test Results: Laboratory Tests Range/Units 03/14/23 03/14/23 03/14/23 12:00 12:00 12:00 WBC (4.4-10.8) 10^3/uL 9.41 RBC (4.36-5.78) 10^6/uL 5.87 H Hgb (13.5-17.5) g/dL 17.5 Hct (40.0-50.0) % 50.1 H MCV (80-95) fL 85 MCH (27.0-33.0) pg 29.8 MCHC (32.0-36.0) % 34.9 RDW (11.8-14.1) % 12.6 Plt Count (130-400) 10^3/uL 207 MPV (8.0-11.0) fL 10.3 Immature Gran % 1.4 Neutrophils % 79.4 Lymphocytes % 10.6 Monocytes % 6.6 Eosinophils % 1.3 Basophils % 0.7 Nucleated RBC % (0.0-0.3) % 0.0 Absolute Neutrophils (1.2-6.7) 10^3/uL 7.47 H Absolute Lymphocytes (1.2-3.4) 10^3/uL 1.00 L Absolute Monocytes (0.1-0.8) 10^3/uL 0.62 Absolute Eosinophils (0.0-0.7) 10^3/uL 0.12 Absolute Basophils (0.0-0.2) 10^3/uL 0.07 PT (9.3-11.0) sec 9.8 INR (0.9-1.1) 1.0 VBG pH (7.31-7.41) VBG pCO2 (41-51) mmHg VBG pO2 mmHg VBG HCO3 (23-28) mmol/L VBG Total CO2 (24-29) mmol/L VBG O2 Saturation % VBG Base Excess (-2-3) mmol/L Sodium (136-145) mmol/L 126 L Potassium (3.5-5.1) mmol/L 4.5 Chloride (98-107) mmol/L 92 L Carbon Dioxide (21.0-32.0) mmol/L 22.3 Anion Gap (3-11) mmol/L 11.7 H BUN (7-18) mg/dL 19 H Creatinine (0.70-1.30) mg/dL 1.0 Est GFR (CKD-EPI 2020) (mL/min/1.73m2) 81.47 Glucose (74-106) mg/dL 370 H Calcium (8.5-10.1) mg/dL 9.2 Total Bilirubin (0.2-1.0) mg/dL 17.0 H Conjugated Bilirubin (0.0-0.2) mg/dL 13.9 H AST (15-37) U/L 282 H ALT (16-63) U/L 618 H Alkaline Phosphatase (46-116) U/L 380 H Total Protein (6.4-8.2) g/dL 7.7 Albumin (3.4-5.0) g/dL 3.8 Lipase (16-77) U/L 374 H Range/Units 03/14/23 03/14/23 12:00 14:50 WBC (4.4-10.8) 10^3/uL RBC (4.36-5.78) 10^6/uL Hgb (13.5-17.5) g/dL Hct (40.0-50.0) % MCV (80-95) fL MCH (27.0-33.0) pg MCHC (32.0-36.0) % RDW (11.8-14.1) % Plt Count (130-400) 10^3/uL MPV (8.0-11.0) fL Immature Gran % Neutrophils % Lymphocytes % Monocytes % Eosinophils % Basophils % Nucleated RBC % (0.0-0.3) % Absolute Neutrophils (1.2-6.7) 10^3/uL Absolute Lymphocytes (1.2-3.4) 10^3/uL Absolute Monocytes (0.1-0.8) 10^3/uL Absolute Eosinophils (0.0-0.7) 10^3/uL Absolute Basophils (0.0-0.2) 10^3/uL PT (9.3-11.0) sec INR (0.9-1.1) VBG pH (7.31-7.41) 7.37 VBG pCO2 (41-51) mmHg 36 L VBG pO2 mmHg 45 VBG HCO3 (23-28) mmol/L 21 L VBG Total CO2 (24-29) mmol/L 18 L VBG O2 Saturation % 83 VBG Base Excess (-2-3) mmol/L -5 L Sodium (136-145) mmol/L Potassium (3.5-5.1) mmol/L Chloride (98-107) mmol/L Carbon Dioxide (21.0-32.0) mmol/L Anion Gap (3-11) mmol/L BUN (7-18) mg/dL Creatinine (0.70-1.30) mg/dL Est GFR (CKD-EPI 2020) (mL/min/1.73m2) Glucose (74-106) mg/dL Calcium (8.5-10.1) mg/dL Total Bilirubin (0.2-1.0) mg/dL Conjugated Bilirubin (0.0-0.2) mg/dL Cancelled AST (15-37) U/L ALT (16-63) U/L Alkaline Phosphatase (46-116) U/L Total Protein (6.4-8.2) g/dL Albumin (3.4-5.0) g/dL Lipase (16-77) U/L
[2023-03-14 16:18] LABS: Acetaminophen < 2 ug/mL (10-30)
--- NOTE | 2023-03-14 16:30 | W.SURGCON ---
Date of service: 03/14/23 Time of Service: 16:30 Assessment and Plan Assessment and plan (1) Abdominal pain with jaundice: Status: Acute Assessment and plan: This appears to be most consistent with an obstructive jaundice. It would seem that primary choledocholithiasis is the most likely diagnosis. I ordered an MRCP today to evaluate the common bile duct proper. I suppose this could also be biliary stricture although the timing of that relative to his cholecystectomy is atypical. Malignancy is also within the differential diagnosis, and should be captured with MRCP. Assuming the MRCP is positive, then he will need an ERCP for definitive management biliary drainage. Currently, he is got no leukocytosis, and no real significant abdominal pain. In that regards, I do not see any benefit to empiric antibiotics at this point. Certainly, if he develops signs of infection, then that should be instituted. I suspect his hyponatremia is actually pseudohyponatremia based on the obstructive jaundice. Serum osmss could be checked to rule this in or out. History of Present Illness History of Present Illness Chief Complaint: He does not feel himself Narrative: Gaurav 68 years old. He and his tell me that he has not been feeling well for the past 3 weeks. It started with him just being a little inattentive, and spacing out a little bit. This evolved into some general malaise, and eventual loss of appetite. Over the past few days, he noticed that his skin was turning yellow. His encouraged him to come to the emergency department. But he came into the emergency department today, he was found to have elevated bilirubin levels. He underwent an ultrasound that revealed a dilated common bile duct at 12 mm. His past medical and surgical history is most significant for cholecystitis which was treated by laparoscopic cholecystectomy earlier this year. In relation to that, he does describe some increased crampy abdominal discomfort that he feels from time to time. Generally he has not thought much of this. His other medical history significant for COPD Review of Systems Constitutional Constitutional: Reports fatigue, Denies fever(s), Reports lethargy, Reports malaise and Reports poor appetite Eyes Eyes: Reports system reviewed and no additional complaints, except as documented ENT Ears, Nose, Mouth, and Throat: Reports system reviewed and no additional complaints, except as documented Cardiovascular Cardiovascular: Denies chest pain and Denies dyspnea Respiratory Respiratory: Denies chest congestion, Denies cough and Denies dyspnea Gastrointestinal Gastrointestinal: Reports change in stool character (Nithin colored), Reports cramping and Denies vomiting Genitourinary Genitourinary: Reports system reviewed and no additional complaints, except as documented Musculoskeletal Musculoskeletal: Reports system reviewed and no additional complaints, except as documented and Denies myalgias Integumentary/Breasts Skin/Breast: Reports system reviewed and no additional complaints, except as documented Neurologic Neurologic: Reports system reviewed and no additional complaints, except as documented Psychiatric Psychiatric: Reports system reviewed and no additional complaints, except as documented Endocrine Endocrine: Reports fatigue Comments: Yellow skin Hematologic/Lymphatic Hematologic/Lymphatic: Denies easy bleeding and Denies easy bruising PFSH All Active Problems (Updated 03/14/23 @ 16:37 by Ángel Krueger MD) Abdominal pain with jaundice (Acute) Acute cholecystitis due to biliary calculus (Acute) Leukocytosis (Acute) COPD (chronic obstructive pulmonary disease) (Chronic) Medical History (Updated 03/14/23 @ 16:37 by Ángel Krueger MD) Acute cholecystitis Anxiety Depression Diabetes GERD (gastroesophageal reflux disease) Gout HTN (hypertension) Hx of hyperlipidemia Sepsis Surgical History (Updated 11/09/22 @ 15:34 by Мария Ponce DO) H/O thyroid cyst Cystectomy History of hernia repair History of hip replacement S/P laparoscopic cholecystectomy Social History Smoking/Tobacco Use Status: Former Tobacco Use Quit Date: 06/09/22 Smoking risk assessment performed?: Yes Alcohol Intake: former Drug use: Never Substance use type: does not use Housing: house Do you feel safe at home: Yes Do you feel safe in your relationship?: Yes Exam Const General: cooperative and comfortable Nutritional Appearance: average body habitus Orientation: alert, awake and oriented x3 HENMT Head: normal to inspection Ears: hearing grossly normal bilaterally Eyes Sclera: scleral abnormality (Scleral icterus) bilaterally Resp Effort & Inspection: normal respiratory effort Auscultation: clear to auscultation bilaterally GI Inspection: normal to inspection Palpation: soft, no guarding, no hernias, nontender and No ascites Results Last Vital Signs Temp 97.5 F L 03/14/23 11:26 Pulse 71 03/14/23 14:44 Resp 16 03/14/23 14:44 BP 130/74 03/14/23 14:44 Pulse Ox 98 03/14/23 14:44 Labs 03/14/23 12:00 03/14/23 12:00 Labs: Laboratory Results - last 24 hr 03/14/23 03/14/23 03/14/23 12:00 12:00 12:00 WBC 9.41 RBC 5.87 H Hgb 17.5 Hct 50.1 H MCV 85 MCH 29.8 MCHC 34.9 RDW 12.6 Plt Count 207 MPV 10.3 Immature Gran % 1.4 Neutrophils % 79.4 Lymphocytes % 10.6 Monocytes % 6.6 Eosinophils % 1.3 Basophils % 0.7 Nucleated RBC % 0.0 Absolute Neutrophils 7.47 H Absolute Lymphocytes 1.00 L Absolute Monocytes 0.62 Absolute Eosinophils 0.12 Absolute Basophils 0.07 PT 9.8 INR 1.0 VBG pH VBG pCO2 VBG pO2 VBG HCO3 VBG Total CO2 VBG O2 Saturation VBG Base Excess Sodium 126 L Potassium 4.5 Chloride 92 L Carbon Dioxide 22.3 Anion Gap 11.7 H BUN 19 H Creatinine 1.0 Est GFR (CKD-EPI 2020) 81.47 Glucose 370 H Calcium 9.2 Total Bilirubin 17.0 H Conjugated Bilirubin 13.9 H AST 282 H ALT 618 H Alkaline Phosphatase 380 H Total Protein 7.7 Albumin 3.8 Lipase 374 H Acetaminophen 03/14/23 03/14/23 03/14/23 12:00 12:00 14:50 WBC RBC Hgb Hct MCV MCH MCHC RDW Plt Count MPV Immature Gran % Neutrophils % Lymphocytes % Monocytes % Eosinophils % Basophils % Nucleated RBC % Absolute Neutrophils Absolute Lymphocytes Absolute Monocytes Absolute Eosinophils Absolute Basophils PT INR VBG pH 7.37 VBG pCO2 36 L VBG pO2 45 VBG HCO3 21 L VBG Total CO2 18 L VBG O2 Saturation 83 VBG Base Excess -5 L Sodium Potassium Chloride Carbon Dioxide Anion Gap BUN Creatinine Est GFR (CKD-EPI 2020) Glucose Calcium Total Bilirubin Conjugated Bilirubin Cancelled AST ALT Alkaline Phosphatase Total Protein Albumin Lipase Acetaminophen < 2
--- NOTE | 2023-03-14 17:04 | TELEP.MEDR_ITS ---
Date of service: 03/14/23 Time of Service: 17:04 Telepharmacy Home Med Rec Allergies Allergies: No Known Allergies Allergy (Unverified 03/14/23 11:30) Interview Person Interviewed: * Patient Quality Quality of Interview/Accuracy of Medication List: Excellent Sources Sources used to compile medication list: [employer] Medication List and Patient List Changes made to Home Medication List: ADDITIONS: * none DELETIONS: * Sucralfate CHANGES: * none Additional Notes Additional Notes: * none Recommended Changes Attestation: The home medication list is now updated to the best of my knowledge and is ready to be reconciled by the provider. [facility] at for any questions.
--- NOTE | 2023-03-14 17:04 | TELEP.MEDREC ---
Date of service: 03/14/23 [facility] Allergies: No Known Allergies Allergy (Unverified 03/14/23 11:30) Interview Person Interviewed: Patient Quality Quality of Interview/Accuracy of Medication List: Excellent Sources Sources used to compile medication list: [employer] Medication List and Patient List Changes made to Home Medication List: ADDITIONS: none DELETIONS: Sucralfate CHANGES: none Additional Notes Additional Notes: none Recommended Changes Attestation: The home medication list is now updated to the best of my knowledge and is ready to be reconciled by the provider. [facility] at for any questions.
[2023-03-14 17:07] VITALS: BP 119/73; PULSE 67; RESP 18; TEMP 36.9; O2SAT 96
[2023-03-14] MEDS: Heparin 5,000 UNITS/ML VIAL 5000 UNITS SC ×2 (17:36→23:49)
--- NOTE | 2023-03-14 18:00 | W.PM.HP.N ---
Date of service: 03/14/23 Time of Service: 19:48 Assessment and Plan Assessment and plan (1) Abdominal pain with jaundice: Status: Acute Assessment and plan: Abdominal pain and jaundice - consistent with an obstructive jaundice. proabable primary choledocholithiasis Malignancy is also within the differential diagnosis, and should be captured with MRCP. If MRCP is positive, then he will need an ERCP for definitive management biliary drainage. Patient has no leukocytosis, and minimal abdominal pain. ISurgery does not recommend empiric antibiotics Hyponatremia could be pseudohyponatremia based on the obstructive jaundice. Serum osmss pending Discussed with Dr Molina History of Present Illness History of Present Illness Chief Complaint: Yellow skin; abdominal pain Narrative: This is a 68 year old male patient with a past medical and surgical history that includes COPD and cholecystitis which was treated by laparoscopic cholecystectomy earlier this year, who presented to the [facility] ED with complaint of malaise, abdominal pain. Patient and his noticed that his skin was turning yellow.? Labs reveal elevated bilirubin levels.? Ultrasound that revealed a dilated common bile duct at 12 mm. Patient described some increased cramping abdominal discomfort. Surgery was consulted, he is placed on observation status on the medical floor. Surgery ordered MRCP for 03/15. he is a full code. Review of Systems All systems reviewed & are unremarkable except as noted in HPI and below PFSH All Active Problems (Updated 03/14/23 @ 16:37 by Ángel Krueger MD) Abdominal pain with jaundice (Acute) Acute cholecystitis due to biliary calculus (Acute) Leukocytosis (Acute) COPD (chronic obstructive pulmonary disease) (Chronic) Medical History (Updated 03/14/23 @ 16:37 by Ángel Krueger MD) Acute cholecystitis Anxiety Depression Diabetes GERD (gastroesophageal reflux disease) Gout HTN (hypertension) Hx of hyperlipidemia Sepsis Surgical History (Updated 11/09/22 @ 15:34 by Мария Ponce DO) H/O thyroid cyst Cystectomy History of hernia repair History of hip replacement S/P laparoscopic cholecystectomy Social History Smoking/Tobacco Use Status: Former Tobacco Use Quit Date: 06/09/22 Smoking risk assessment performed?: Yes Alcohol Intake: former Drug use: Never Substance use type: does not use Housing: house Do you feel safe at home: Yes Do you feel safe in your relationship?: Yes Meds Allergies and Home Medications Allergies Allergy/AdvReac Type Severity Reaction Status Date / Time No Known Allergies Allergy Unverified 03/14/23 11:30 Home Medications Medication Instructions Recorded Confirmed Type albuterol sulfate 90 mcg/actuation 2 puff inhalation Q3H PRN PRN 11/11/16 03/14/23 History aerosol inhaler (Ventolin HFA) budesonide-formoterol HFA 160 10.2 g inhalation BID 11/11/16 03/14/23 History mcg-4.5 mcg/actuation aerosol inhaler (Symbicort) cholecalciferol (vitamin D3) 25 2,000 units PO DAILY 11/11/16 03/14/23 History mcg (1,000 unit) tablet venlafaxine 150 mg 150 mg PO DAILY 11/11/16 03/14/23 History capsule,extended release 24 hr (Effexor XR) aspirin 81 mg chewable tablet 81 mg PO DAILY 03/14/23 03/14/23 History lisinopril 5 mg tablet 5 mg PO DAILY 03/14/23 03/14/23 History carboxymethylcellulose sodium 0.5 1 drp ophthalmic (eye) QID PRN PRN 03/15/23 03/15/23 History % eye drops in a dropperette Dry Eyes doxazosin 2 mg tablet 2 mg PO HS 03/15/23 03/15/23 History metformin 1,000 mg tablet 1,000 mg PO DAILY@1700 03/15/23 03/15/23 History montelukast 5 mg chewable tablet 10 mg PO DAILY allergies 03/15/23 03/15/23 History omeprazole 20 mg capsule,delayed 20 mg PO DAILY 03/15/23 03/15/23 History release pravastatin 10 mg tablet 10 mg PO QPM 03/15/23 03/15/23 History propranolol 40 mg tablet 40 mg PO DAILY 03/15/23 03/15/23 History Exam Const General: cooperative, healthy appearing and comfortable Orientation: alert and oriented x3 Resp Effort & Inspection: normal respiratory effort, no audible wheezes and no cough GI Inspection: normal to inspection Skin General skin exam: jaundice (Scleral icterus ) Results Labs 03/15/23 07:18 03/15/23 07:18 Labs: Laboratory Results - last 24 hr 07/03/0103/14/23 03/14/23 12:00 12:00 12:00 WBC 9.41 RBC 5.87 H Hgb 17.5 Hct 50.1 H MCV 85 MCH 29.8 MCHC 34.9 RDW 12.6 Plt Count 207 MPV 10.3 Immature Gran % 1.4 Neutrophils % 79.4 Lymphocytes % 10.6 Monocytes % 6.6 Eosinophils % 1.3 Basophils % 0.7 Nucleated RBC % 0.0 Absolute Neutrophils 7.47 H Absolute Lymphocytes 1.00 L Absolute Monocytes 0.62 Absolute Eosinophils 0.12 Absolute Basophils 0.07 PT 9.8 INR 1.0 VBG pH VBG pCO2 VBG pO2 VBG HCO3 VBG Total CO2 VBG O2 Saturation VBG Base Excess Sodium 126 L Potassium 4.5 Chloride 92 L Carbon Dioxide 22.3 Anion Gap 11.7 H BUN 19 H Creatinine 1.0 Est GFR (CKD-EPI 2020) 81.47 Glucose 370 H Calcium 9.2 Total Bilirubin 17.0 H Conjugated Bilirubin 13.9 H AST 282 H ALT 618 H Alkaline Phosphatase 380 H Total Protein 7.7 Albumin 3.8 Lipase 374 H Acetaminophen Add-On Test Request 03/14/23 03/14/23 03/14/23 12:00 12:00 14:50 WBC RBC Hgb Hct MCV MCH MCHC RDW Plt Count MPV Immature Gran % Neutrophils % Lymphocytes % Monocytes % Eosinophils % Basophils % Nucleated RBC % Absolute Neutrophils Absolute Lymphocytes Absolute Monocytes Absolute Eosinophils Absolute Basophils PT INR VBG pH 7.37 VBG pCO2 36 L VBG pO2 45 VBG HCO3 21 L VBG Total CO2 18 L VBG O2 Saturation 83 VBG Base Excess -5 L Sodium Potassium Chloride Carbon Dioxide Anion Gap BUN Creatinine Est GFR (CKD-EPI 2020) Glucose Calcium Total Bilirubin Conjugated Bilirubin Cancelled AST ALT Alkaline Phosphatase Total Protein Albumin Lipase Acetaminophen < 2 Add-On Test Request 03/14/23 15:24 WBC RBC Hgb Hct MCV MCH MCHC RDW Plt Count MPV Immature Gran % Neutrophils % Lymphocytes % Monocytes % Eosinophils % Basophils % Nucleated RBC % Absolute Neutrophils Absolute Lymphocytes Absolute Monocytes Absolute Eosinophils Absolute Basophils PT INR VBG pH VBG pCO2 VBG pO2 VBG HCO3 VBG Total CO2 VBG O2 Saturation VBG Base Excess Sodium Potassium Chloride Carbon Dioxide Anion Gap BUN Creatinine Est GFR (CKD-EPI 2020) Glucose Calcium Total Bilirubin Conjugated Bilirubin AST ALT Alkaline Phosphatase Total Protein Albumin Lipase Acetaminophen Add-On Test Request DONE Last Vital Signs Temp 36.9 C 03/14/23 17:07 Pulse 67 03/14/23 17:07 Resp 18 03/14/23 17:07 BP 119/73 03/14/23 17:07 Pulse Ox 96 03/14/23 17:07 Time Spent Time spent with Patient: 55-74 minutes Time was spent: preparing to see the patient(eg.review tests), obtaining and/or reviewing separately otained hiistory, ordering medications,tests, procedures, referring, communicating with other health healthcare interpreter, indepentently interpreting results, counseling the patient and care coordination
[2023-03-14] MEDS: Insulin Aspart 300 UNITS/3 ML PEN SC ×2 (18:11→21:16)
[2023-03-14 19:26] LABS: Lab Add On Test DONE
--- NOTE | 2023-03-14 19:37 | W.PM.PROGNOT ---
Date of Service Date of service: 03/14/23 Time of Service: 19:38 Assessment and Plan Assessment and plan (1) Abdominal pain with jaundice: Status: Acute Assessment and plan: This appears to be most consistent with an obstructive jaundice. It would seem that primary choledocholithiasis is the most likely diagnosis. I ordered an MRCP today to evaluate the common bile duct proper. I suppose this could also be biliary stricture although the timing of that relative to his cholecystectomy is atypical. Malignancy is also within the differential diagnosis, and should be captured with MRCP. Assuming the MRCP is positive, then he will need an ERCP for definitive management biliary drainage. Currently, he is got no leukocytosis, and no real significant abdominal pain. In that regards, I do not see any benefit to empiric antibiotics at this point. Certainly, if he develops signs of infection, then that should be instituted. I suspect his hyponatremia is actually pseudohyponatremia based on the obstructive jaundice. Serum osmss could be checked to rule this in or out. Subjective Subjective Interval history since last seen: Arrived the patient sitting up in bed. He states he is feeling significantly better compared to yesterday. He has some slight abdominal distention. But otherwise he states he feels much better since having bowel movement yesterday. He is tolerating regular diet. He denies any nausea, vomiting or diarrhea. Patient denies having any fevers, chills or night sweats. Exam Const General: cooperative and comfortable Nutritional Appearance: average body habitus Orientation: alert, awake and oriented x3 HENMT Head: normal to inspection Ears: hearing grossly normal bilaterally Eyes Sclera: scleral abnormality (Scleral icterus) bilaterally Resp Effort & Inspection: normal respiratory effort Auscultation: clear to auscultation bilaterally GI Inspection: normal to inspection Palpation: soft, no guarding, no hernias, nontender and No ascites Objective Last Vital Signs Temp 36.9 C 03/14/23 17:07 Pulse 67 03/14/23 17:07 Resp 18 03/14/23 17:07 BP 119/73 03/14/23 17:07 Pulse Ox 96 03/14/23 17:07 Laboratory Results - last 24 hr 03/14/23 03/14/23 03/14/23 12:00 12:00 12:00 WBC 9.41 RBC 5.87 H Hgb 17.5 Hct 50.1 H MCV 85 MCH 29.8 MCHC 34.9 RDW 12.6 Plt Count 207 MPV 10.3 Immature Gran % 1.4 Neutrophils % 79.4 Lymphocytes % 10.6 Monocytes % 6.6 Eosinophils % 1.3 Basophils % 0.7 Nucleated RBC % 0.0 Absolute Neutrophils 7.47 H Absolute Lymphocytes 1.00 L Absolute Monocytes 0.62 Absolute Eosinophils 0.12 Absolute Basophils 0.07 PT 9.8 INR 1.0 VBG pH VBG pCO2 VBG pO2 VBG HCO3 VBG Total CO2 VBG O2 Saturation VBG Base Excess Sodium 126 L Potassium 4.5 Chloride 92 L Carbon Dioxide 22.3 Anion Gap 11.7 H BUN 19 H Creatinine 1.0 Est GFR (CKD-EPI 2020) 81.47 Glucose 370 H Calcium 9.2 Total Bilirubin 17.0 H Conjugated Bilirubin 13.9 H AST 282 H ALT 618 H Alkaline Phosphatase 380 H Total Protein 7.7 Albumin 3.8 Lipase 374 H Acetaminophen Add-On Test Request 03/14/23 03/14/23 03/14/23 12:00 12:00 14:50 WBC RBC Hgb Hct MCV MCH MCHC RDW Plt Count MPV Immature Gran % Neutrophils % Lymphocytes % Monocytes % Eosinophils % Basophils % Nucleated RBC % Absolute Neutrophils Absolute Lymphocytes Absolute Monocytes Absolute Eosinophils Absolute Basophils PT INR VBG pH 7.37 VBG pCO2 36 L VBG pO2 45 VBG HCO3 21 L VBG Total CO2 18 L VBG O2 Saturation 83 VBG Base Excess -5 L Sodium Potassium Chloride Carbon Dioxide Anion Gap BUN Creatinine Est GFR (CKD-EPI 2020) Glucose Calcium Total Bilirubin Conjugated Bilirubin Cancelled AST ALT Alkaline Phosphatase Total Protein Albumin Lipase Acetaminophen < 2 Add-On Test Request 03/14/23 15:24 WBC RBC Hgb Hct MCV MCH MCHC RDW Plt Count MPV Immature Gran % Neutrophils % Lymphocytes % Monocytes % Eosinophils % Basophils % Nucleated RBC % Absolute Neutrophils Absolute Lymphocytes Absolute Monocytes Absolute Eosinophils Absolute Basophils PT INR VBG pH VBG pCO2 VBG pO2 VBG HCO3 VBG Total CO2 VBG O2 Saturation VBG Base Excess Sodium Potassium Chloride Carbon Dioxide Anion Gap BUN Creatinine Est GFR (CKD-EPI 2020) Glucose Calcium Total Bilirubin Conjugated Bilirubin AST ALT Alkaline Phosphatase Total Protein Albumin Lipase Acetaminophen Add-On Test Request DONE
[2023-03-14 19:46] LABS: Hemoglobin A1C 9.8 % (<5.7)
[2023-03-14 19:55] LABS: C-Reactive Protein 0.91 mg/dL (0.0-0.3); TSH 4.23 uIU/mL (0.36-3.74)
[2023-03-14 20:11] LABS: Procalcitonin 0.4 ng/mL
[2023-03-14 22:04] VITALS: BP 124/64; PULSE 69; RESP 18; TEMP 36; O2SAT 98
--- NOTE | 2023-03-15 | DI.MRI_ITS ---
Exam(s) MR ABDOMEN WO EXAM: MR ABDOMEN WO CLINICAL HISTORY: rule out common bile duct obstruction TECHNIQUE: Multiplanar multisequence MRI of the Abdomen was performed. MRCP sequences also performed. COMPARISON: CT CT ABDOMEN PELVIS W from 10/27/2022 US US ABDOMEN LIMITED from 03/14/2023 FINDINGS: Exam is limited by motion. Liver: Unremarkable. Gallbladder: Unremarkable. Bile Ducts: Common bile duct dilated to 16 millimeters. There appears to be abrupt cut off the dista l common duct. No common duct stone visible. Intrahepatic ductal dilatation also present. Pancreas: Pancreatic duct mildly dilated. No pancreatic mass identified. No pancreatic inflammation visible. Adrenals: Unremarkable. Kidneys: Unremarkable. Tiny bilateral renal cysts. Spleen: Unremarkable. Aorta: Atherosclerotic changes. Mild dilatation to 2.9 cm, unchanged from prior CT. Soft Tissues: Unremarkable. Bone: Unremarkable. Lymph Nodes: Unremarkable. Mesentery: No ascites. No focal fluid collection. Bowel: No abnormal dilatation or wall thickening. Diverticulosis noted in the descending colon. IMPRESSION: Dilated common bile duct and intrahepatic ducts. No stone visible. No pancreatic mass visible. DATA REPOSITORY:
[2023-03-15 03:14] VITALS: BP 115/73; PULSE 67; RESP 16; TEMP 36.3; O2SAT 97
[2023-03-15 03:54] VITALS: BP 130/74; PULSE 68; RESP 16; TEMP 36; O2SAT 98
[2023-03-15 07:30] LABS: Absolute Basophil Count 0.05 10^3/uL (0.0-0.2); Absolute Eosinophil Count 0.15 10^3/uL (0.0-0.7); Absolute Lymphocyte Count 1.07 10^3/uL (1.2-3.4); Absolute Monocyte Count 0.54 10^3/uL (0.1-0.8); Absolute Neutrophil Count 5.39 10^3/uL (1.2-6.7); Basophils % 0.7; Eosinophils % 2.1; HGB 16.6 g/dL (13.5-17.5); Immature Grans % 1.4; Lymphocytes % 14.7; MCHC 35.3 % (32.0-36.0); MCV 85 fL (80-95); MPV 10.4 fL (8.0-11.0); Monocytes % 7.4; Neutrophils % 73.7; Platelet Count 193 10^3/uL (130-400); RBC 5.53 10^6/uL (4.36-5.78); RDW 12.9 % (11.8-14.1); RDW-SD 39.9 fL
[2023-03-15 07:35] LABS: Ammonia 20 umol/L (11-32)
[2023-03-15 07:40] LABS: INR 0.9 (0.9-1.1); Prothrombin Time 9.4 sec (9.3-11.0)
[2023-03-15 07:57] LABS: ALT 508 U/L (16-63); AST 230 U/L (15-37); Albumin 3.2 g/dL (3.4-5.0); Alkaline Phosphatase 380 U/L (46-116); Anion Gap 13.7 mmol/L (3-11); BUN 15 mg/dL (7-18); Bilirubin, Direct 14.9 mg/dL (0.0-0.2); C-Reactive Protein 1.21 mg/dL (0.0-0.3); CO2 20.3 mmol/L (21.0-32.0); CREATININE 0.9 mg/dL (0.70-1.30); Calcium 8.8 mg/dL (8.5-10.1); Chloride 98 mmol/L (98-107); Estimated GFR 92.45 (mL/min/1.73m2); Glucose 258 mg/dL (74-106); Magnesium 1.8 mg/dL (1.8-2.4); Potassium 4.4 mmol/L (3.5-5.1); Sodium 132 mmol/L (136-145); Total Protein 6.7 g/dL (6.4-8.2)
[2023-03-15 08:05] LABS: Bilirubin, Total 18.3 mg/dL (0.2-1.0)
[2023-03-15 08:50] VITALS: BP 123/77; PULSE 91; RESP 14; TEMP 36.1; O2SAT 97
--- NOTE | 2023-03-15 09:54 | PGE_ITS ---
Date of Service Date of service: 03/15/23 Time of Service: 09:54 Assessment and Plan Assessment and plan (1) Abdominal pain with jaundice: Status: Acute Assessment and plan: MRCP is scheduled for 11:00 this morning. He will need to remain n.p.o. Patient is aware that if the MRCP demonstrates choledocholithiasis he will need to undergo an ERCP which would be performed at [facility]. I saw and examined Gaurav, and I agree with the note that was started by [place]. Generally he feels a little better today. His appetite is certainly increased a bit. He denies any pain, or subjective fevers. His bilirubin is up again a little bit today to 18 from 17. His MRCP shows abrupt cut off of the distal common bile duct. Next best step is an ERCP. I talked to Dr. Churchill at [facility], but they are not able to accommodate him until next week. I also spoke to Dr. Hope at [facility], who also does not have availability before next week. In the meantime, we can obtain a CT of the pancreas in an effort to rule out pancreatic malignancy to complement the work-up Subjective Subjective Interval history since last seen: Gaurav reports that he does not have any pain at this time. He states that he is very hungry and eagerly awaiting his MRCP. Exam Const General: cooperative, healthy appearing and comfortable Orientation: alert and oriented x3 Resp Effort & Inspection: normal respiratory effort, no audible wheezes and no cough GI Inspection: normal to inspection Skin Other: Jaundice Objective Last Vital Signs Temp 36.1 C L 03/15/23 08:50 Pulse 91 H 03/15/23 08:50 Resp 14 03/15/23 08:50 BP 123/77 03/15/23 08:50 Pulse Ox 97 03/15/23 08:50 Laboratory Results - last 24 hr 03/14/23 03/14/23 03/14/23 12:00 12:00 12:00 WBC 9.41 RBC 5.87 H Hgb 17.5 Hct 50.1 H MCV 85 MCH 29.8 MCHC 34.9 RDW 12.6 Plt Count 207 MPV 10.3 Immature Gran % 1.4 Neutrophils % 79.4 Lymphocytes % 10.6 Monocytes % 6.6 Eosinophils % 1.3 Basophils % 0.7 Nucleated RBC % 0.0 Absolute Neutrophils 7.47 H Absolute Lymphocytes 1.00 L Absolute Monocytes 0.62 Absolute Eosinophils 0.12 Absolute Basophils 0.07 PT 9.8 INR 1.0 VBG pH VBG pCO2 VBG pO2 VBG HCO3 VBG Total CO2 VBG O2 Saturation VBG Base Excess Sodium 126 L Potassium 4.5 Chloride 92 L Carbon Dioxide 22.3 Anion Gap 11.7 H BUN 19 H Creatinine 1.0 Est GFR (CKD-EPI 2020) 81.47 Glucose 370 H Hemoglobin A1c Calcium 9.2 Magnesium Total Bilirubin 17.0 H Conjugated Bilirubin 13.9 H AST 282 H ALT 618 H Alkaline Phosphatase 380 H Ammonia C-Reactive Protein Total Protein 7.7 Albumin 3.8 Lipase 374 H Procalcitonin TSH Acetaminophen Add-On Test Request 03/14/23 03/14/23 03/14/23 12:00 12:00 12:00 WBC RBC Hgb Hct MCV MCH MCHC RDW Plt Count MPV Immature Gran % Neutrophils % Lymphocytes % Monocytes % Eosinophils % Basophils % Nucleated RBC % Absolute Neutrophils Absolute Lymphocytes Absolute Monocytes Absolute Eosinophils Absolute Basophils PT INR VBG pH VBG pCO2 VBG pO2 VBG HCO3 VBG Total CO2 VBG O2 Saturation VBG Base Excess Sodium Potassium Chloride Carbon Dioxide Anion Gap BUN Creatinine Est GFR (CKD-EPI 2020) Glucose Hemoglobin A1c 9.8 H Calcium Magnesium Total Bilirubin Conjugated Bilirubin Cancelled AST ALT Alkaline Phosphatase Ammonia C-Reactive Protein Total Protein Albumin Lipase Procalcitonin TSH Acetaminophen < 2 Add-On Test Request 03/14/23 03/14/23 03/14/23 14:50 14:50 14:50 WBC RBC Hgb Hct MCV MCH MCHC RDW Plt Count MPV Immature Gran % Neutrophils % Lymphocytes % Monocytes % Eosinophils % Basophils % Nucleated RBC % Absolute Neutrophils Absolute Lymphocytes Absolute Monocytes Absolute Eosinophils Absolute Basophils PT INR VBG pH 7.37 VBG pCO2 36 L VBG pO2 45 VBG HCO3 21 L VBG Total CO2 18 L VBG O2 Saturation 83 VBG Base Excess -5 L Sodium Potassium Chloride Carbon Dioxide Anion Gap BUN Creatinine Est GFR (CKD-EPI 2020) Glucose Hemoglobin A1c Calcium Magnesium Total Bilirubin Conjugated Bilirubin AST ALT Alkaline Phosphatase Ammonia C-Reactive Protein 0.91 H Total Protein Albumin Lipase Procalcitonin 0.4 TSH 4.23 H Acetaminophen Add-On Test Request 03/14/23 03/15/23 03/15/23 15:24 07:18 07:18 WBC RBC Hgb Hct MCV MCH MCHC RDW Plt Count MPV Immature Gran % Neutrophils % Lymphocytes % Monocytes % Eosinophils % Basophils % Nucleated RBC % Absolute Neutrophils Absolute Lymphocytes Absolute Monocytes Absolute Eosinophils Absolute Basophils PT INR VBG pH VBG pCO2 VBG pO2 VBG HCO3 VBG Total CO2 VBG O2 Saturation VBG Base Excess Sodium 132 L Potassium 4.4 Chloride 98 Carbon Dioxide 20.3 L Anion Gap 13.7 H BUN 15 Creatinine 0.9 Est GFR (CKD-EPI 2020) 92.45 Glucose 258 H Hemoglobin A1c Calcium 8.8 Magnesium 1.8 Total Bilirubin 18.3 H Conjugated Bilirubin 14.9 H AST 230 H ALT 508 H Alkaline Phosphatase 380 H Ammonia 20 C-Reactive Protein 1.21 H Total Protein 6.7 Albumin 3.2 L Lipase Procalcitonin TSH Acetaminophen Add-On Test Request DONE 03/15/23 03/15/23 07:18 07:18 WBC 7.30 RBC 5.53 Hgb 16.6 Hct 47.0 MCV 85 MCH 30.0 MCHC 35.3 RDW 12.9 Plt Count 193 MPV 10.4 Immature Gran % 1.4 Neutrophils % 73.7 Lymphocytes % 14.7 Monocytes % 7.4 Eosinophils % 2.1 Basophils % 0.7 Nucleated RBC % 0.0 Absolute Neutrophils 5.39 Absolute Lymphocytes 1.07 L Absolute Monocytes 0.54 Absolute Eosinophils 0.15 Absolute Basophils 0.05 PT 9.4 INR 0.9 VBG pH VBG pCO2 VBG pO2 VBG HCO3 VBG Total CO2 VBG O2 Saturation VBG Base Excess Sodium Potassium Chloride Carbon Dioxide Anion Gap BUN Creatinine Est GFR (CKD-EPI 2020) Glucose Hemoglobin A1c Calcium Magnesium Total Bilirubin Conjugated Bilirubin AST ALT Alkaline Phosphatase Ammonia C-Reactive Protein Total Protein Albumin Lipase Procalcitonin TSH Acetaminophen Add-On Test Request Time Spent with Patient Time Spent with Patient: >50 minutes Time was spent: preparing to see the patient(eg.review tests), ordering medications,tests, procedures, referring, communicating with other health patient care assistant, indepentently interpreting results, counseling the patient and care coordination
[2023-03-15] MEDS: Insulin Aspart 300 UNITS/3 ML PEN SC ×4 (10:17→21:20)
[2023-03-15 11:37] LABS: Lyme Ab w Rflx to Lyme Confirm Negative (Negative)
[2023-03-15 12:29] VITALS: BP 124/74; PULSE 95; RESP 17; TEMP 36.6; O2SAT 96
[2023-03-15] MEDS: Famotidine 20 MG TAB PO (15:36)
[2023-03-15] MEDS: Lisinopril 5 MG TAB PO (15:36)
[2023-03-15] MEDS: Propranolol 20 MG TAB 40 MG PO (15:37)
[2023-03-15] MEDS: Venlafaxine 150 MG CAPCR PO (15:37)
[2023-03-15] MEDS: Heparin 5,000 UNITS/ML VIAL 5000 UNITS SC ×2 (15:37→23:41)
--- NOTE | 2023-03-15 16:00 | W.PM.PROGNOT ---
Date of Service Date of service: 03/15/23 Time of Service: 18:00 Assessment and Plan Assessment and plan (1) Abdominal pain with jaundice: Status: Acute Assessment and plan: Continues to be jaundice He needs an ERCP for definitive management biliary drainage. Patient has no leukocytosis, and minimal abdominal pain. Surgery does not recommend empiric antibiotics unless febrile and leukocytosis Surgery following and arranging transfer (2) HTN (hypertension): Assessment and plan: Stable, continue home meds (3) Diabetes: Assessment and plan: Hold Metformin, SS insulin he [place] and [place] are working on controlling his diabetes (4) Depression: Assessment and plan: Stable, continue home meds (5) DVT prophylaxis: Status: Acute Assessment and plan: Heparin SC - pending ERCP (6) Discharge planning issues: Status: Acute Assessment and plan: [facility] or [facility] for ERCP Discussed with Dr Molina Subjective Subjective Patient reports: no new complaints, feels better, pain is less (denies pain), tolerating liquids well, tolerating a regular diet, voiding w/o difficulty, bowel movement and afebrile; denies diarrhea, nausea or vomiting Interval history since last seen: Had MRCP, no stones, being followed by surgery; they are tryng to arrange ERCP @ [facility] or [facility] Exam Const General: cooperative, healthy appearing and comfortable Orientation: alert and oriented x3 Resp Effort & Inspection: normal respiratory effort, no audible wheezes and no cough GI Inspection: normal to inspection Skin Other: Jaundice Objective Last Vital Signs Temp 35.7 C L 03/15/23 19:30 Pulse 108 H 03/15/23 19:30 Resp 20 03/15/23 19:30 BP 108/71 03/15/23 19:30 Pulse Ox 96 03/15/23 19:30 Laboratory Results - last 24 hr 03/14/23 03/15/23 03/15/23 12:00 07:18 07:18 WBC RBC Hgb Hct MCV MCH MCHC RDW Plt Count MPV Immature Gran % Neutrophils % Lymphocytes % Monocytes % Eosinophils % Basophils % Nucleated RBC % Absolute Neutrophils Absolute Lymphocytes Absolute Monocytes Absolute Eosinophils Absolute Basophils PT INR Sodium 132 L Potassium 4.4 Chloride 98 Carbon Dioxide 20.3 L Anion Gap 13.7 H BUN 15 Creatinine 0.9 Est GFR (CKD-EPI 2020) 92.45 Glucose 258 H Calcium 8.8 Magnesium 1.8 Total Bilirubin 18.3 H Conjugated Bilirubin 14.9 H AST 230 H ALT 508 H Alkaline Phosphatase 380 H Ammonia 20 C-Reactive Protein 1.21 H Total Protein 6.7 Albumin 3.2 L Lyme Disease Antibody Negative 03/15/23 03/15/23 07:18 07:18 WBC 7.30 RBC 5.53 Hgb 16.6 Hct 47.0 MCV 85 MCH 30.0 MCHC 35.3 RDW 12.9 Plt Count 193 MPV 10.4 Immature Gran % 1.4 Neutrophils % 73.7 Lymphocytes % 14.7 Monocytes % 7.4 Eosinophils % 2.1 Basophils % 0.7 Nucleated RBC % 0.0 Absolute Neutrophils 5.39 Absolute Lymphocytes 1.07 L Absolute Monocytes 0.54 Absolute Eosinophils 0.15 Absolute Basophils 0.05 PT 9.4 INR 0.9 Sodium Potassium Chloride Carbon Dioxide Anion Gap BUN Creatinine Est GFR (CKD-EPI 2020) Glucose Calcium Magnesium Total Bilirubin Conjugated Bilirubin AST ALT Alkaline Phosphatase Ammonia C-Reactive Protein Total Protein Albumin Lyme Disease Antibody Time Spent with Patient Time Spent with Patient: >50 minutes Time was spent: preparing to see the patient(eg.review tests), obtaining and/or reviewing separately otained hiistory, ordering medications,tests, procedures, referring, communicating with other health career manager, indepentently interpreting results, counseling the patient and care coordination
--- NOTE | 2023-03-15 16:19 | INITIAL_ITS ---
Date of service: 03/15/23 Time of Service: 16:23 Care Management Initial Assmt Initial Assessment REASON FOR HOSPITALIZATION:: Painless Jaundice PREVIOUS FUNCTIONAL STATUS/SOCIAL/FAMILY SUPPORTS:: Gaurav lives in [place] with his S/O, Saniya. He is independent at baseline. CURRENT FUNCTIONAL STATUS:: Per MD, Gaurav reports feeling hungry and wanting to complete MRCP so that he is able to eat. ADVANCE DIRECTIVES:: Not on file Has patient been provided with info about the portal/API?: Yes Did the patient sign up for the portal?: No CODE STATUS:: Full Code INSURANCE COVERAGE / FINANCIAL ISSUES:: [facility] MCR replacement/ [employer] Life MCR supplement PRIMARY CARE PHYSICIAN:: EARNESTINE POTENTIAL DISCHARGE NEEDS:: Follow up appointments. PATIENT/FAMILY EDUCATION NEEDS:: Review discharge instructions and limitations, discussion of self care needs including ask me three. ANTICIPATED BARRIERS TO DISCHARGE:: None identified. TRANSPORTATION:: Via private vehicle with Saniya. PLAN:: Per Surgeon, anticipate Gaurav may require transfer or down and back appointment at [facility] for ERCP if MRCP demonstrates choledocholithiasis. CM continues to follow. PFSH All Active Problems (Updated 03/14/23 @ 16:37 by Ángel Krueger MD) Abdominal pain with jaundice (Acute) Acute cholecystitis due to biliary calculus (Acute) Leukocytosis (Acute) COPD (chronic obstructive pulmonary disease) (Chronic) Medical History (Updated 03/14/23 @ 16:37 by Ángel Krueger MD) Acute cholecystitis Anxiety Depression Diabetes GERD (gastroesophageal reflux disease) Gout HTN (hypertension) Hx of hyperlipidemia Sepsis Surgical History (Updated 11/09/22 @ 15:34 by Мария Ponce DO) H/O thyroid cyst Cystectomy History of hernia repair History of hip replacement S/P laparoscopic cholecystectomy Social History Smoking/Tobacco Use Status: Former Tobacco Use Quit Date: 06/09/22 Smoking risk assessment performed?: Yes Alcohol Intake: former Drug use: Never Substance use type: does not use Housing: house Do you feel safe at home: Yes Do you feel safe in your relationship?: Yes
[2023-03-15 16:22] VITALS: BP 133/81; PULSE 104; RESP 20; TEMP 36.6; O2SAT 97
[2023-03-15 19:30] VITALS: BP 108/71; PULSE 108; RESP 20; TEMP 35.7; O2SAT 96
[2023-03-15] MEDS: Budesonide/Formoterol 160/4.5 6 GM 60 PUFF INH IH (19:41)
[2023-03-15 19:59] LABS: Osmolality Serum 281 mOsm/kg (275-295)
[2023-03-15] MEDS: Doxazosin 2 MG TAB PO (21:25)
[2023-03-15] MEDS: Mylanta Suspension 30 ML CUP PO (23:46)
--- NOTE | 2023-03-16 | DI.CT_ITS ---
Exam(s) CT ABDOMEN W EXAM: CT ABDOMEN W CLINICAL HISTORY: rule out pancreatic cancer. TECHNIQUE: Imaging Protocol: Axial computed tomography images with coronal and sagittal reformatted images were created and reviewed CONTRAST MATERIAL: Intravenous: Omnipaque 350 Contrast volume:100 cc contrast route:IV - Oral: yes / COMPARISON: CT CT ABDOMEN PELVIS W from 10/27/2022 MR MR ABDOMEN WO from 03/15/2023 FINDINGS: ABDOMEN: Lung Bases: Normal where visualized. Liver: Normal density. No measurable mass. Gallbladder and biliary tract: Status post cholecystectomy. Common bile duct now prominent. Pancreas: Ill-defined mass in the head of the pancreas measuring roughly 2.5 cm., this causes obstruc tion of the common bile duct. Mild dilatation of the pancreatic duct. Findings suspicious for pancr eatic carcinoma. Bowel: Wall thickening of the duodenum adjacent to the head of the pancreas. Spleen: Normal. Kidneys: Normal size, contour and axis. No radiodense stones or obstructive uropathy. No masses seen. Adrenal glands: No masses seen. Abdominal Aorta: Abdominal portion non-dilated. Atherosclerotic changes. Lymph nodes: Small lymph nodes, not definitely pathologic the level of the celiac axis and zayra cava l region. Bones: Unremarkable for age. IMPRESSION: 2.5 centimeter ill-defined mass in the head of the pancreas causing common bile duct dilatation. Mil d adjacent thickening of the duodenum. Findings consistent pancreatic carcinoma. RADIATION DOSE DELIVERED: 1,822.53mGy.cm Total DLP DATA REPOSITORY: All CT scans at this facility are submitted to the National Radiology Data Registry (NRDR) Dose Index Registry (DIR) with the [employer] (A[employer]). RADIATION OPTIMIZATION: All CT scans at this facility use at least one of these dose optimization te chniques: automated exposure control; mA and/or kV adjustment per patient size (includes targeted exa ms where dose is matched to clinical indication); or iterative reconstruction.
[2023-03-16 00:09] VITALS: BP 124/74; PULSE 71; RESP 18; TEMP 36.6; O2SAT 95
[2023-03-16 03:20] VITALS: BP 119/74; PULSE 72; RESP 20; TEMP 36.8; O2SAT 97
[2023-03-16 08:13] VITALS: BP 119/74; PULSE 65; RESP 20; TEMP 35.8; O2SAT 97
[2023-03-16 08:15] LABS: Abs Immature Grans 0.09 10^3/uL (0.0-0.06); Absolute Basophil Count 0.06 10^3/uL (0.0-0.2); Absolute Eosinophil Count 0.14 10^3/uL (0.0-0.7); Absolute Lymphocyte Count 1.17 10^3/uL (1.2-3.4); Absolute Monocyte Count 0.64 10^3/uL (0.1-0.8); Absolute Neutrophil Count 4.82 10^3/uL (1.2-6.7); Basophils % 0.9; HCT 45.7 % (40.0-50.0); HGB 16.7 g/dL (13.5-17.5); Immature Grans % 1.3; Lymphocytes % 16.9; MCH 30.9 pg (27.0-33.0); MCHC 36.5 % (32.0-36.0); MCV 85 fL (80-95); Monocytes % 9.2; Neutrophils % 69.7; Platelet Count 191 10^3/uL (130-400); RDW 13.2 % (11.8-14.1); RDW-SD 40.2 fL; WBC 6.92 10^3/uL (4.4-10.8)
[2023-03-16 08:26] LABS: Anion Gap 11.3 mmol/L (3-11); BUN 19 mg/dL (7-18); CO2 20.7 mmol/L (21.0-32.0); Calcium 9.3 mg/dL (8.5-10.1); Chloride 94 mmol/L (98-107); Estimated GFR 81.47 (mL/min/1.73m2); Glucose 294 mg/dL (74-106); Lipase 195 U/L (16-77); Magnesium 1.9 mg/dL (1.8-2.4); Potassium 4.7 mmol/L (3.5-5.1); Sodium 126 mmol/L (136-145)
[2023-03-16] MEDS: Budesonide/Formoterol 160/4.5 6 GM 60 PUFF INH IH (08:33)
[2023-03-16] MEDS: Heparin 5,000 UNITS/ML VIAL 5000 UNITS SC ×2 (08:36→15:45)
[2023-03-16] MEDS: Aspirin 81 MG CHEW PO (08:36)
[2023-03-16] MEDS: Insulin Aspart 300 UNITS/3 ML PEN SC ×3 (08:37→17:08)
[2023-03-16] MEDS: Omeprazole 20 MG CAPCR PO (08:37)
[2023-03-16] MEDS: Venlafaxine 150 MG CAPCR PO (08:37)
[2023-03-16] MEDS: Lisinopril 5 MG TAB PO (08:37)
[2023-03-16] MEDS: Famotidine 20 MG TAB PO (08:37)
[2023-03-16] MEDS: Cholecalciferol (Vitamin D3) 1,000 UNIT TAB 2000 UNITS PO (08:37)
[2023-03-16] MEDS: Omnipaque 350 MG/ML 500 ML BTL-Imaging package 100 ML IJ (10:20)
[2023-03-16] MEDS: Normal Saline - Diluent 50 ML VIAL IJ (10:20)
[2023-03-16] MEDS: Normal Saline Flush 10 ML SYR IVP (10:21)
[2023-03-16] MEDS: Omnipaque 350 MG/ML 50 ML BTL PO (10:25)
[2023-03-16] MEDS: Breeza Beverage 473 ML BTL 900 ML PO (10:26)
[2023-03-16 10:53] VITALS: BP 126/79; PULSE 69; RESP 20; TEMP 35.6; O2SAT 97
[2023-03-16] MEDS: Propranolol 40 MG TAB PO (10:55)
--- NOTE | 2023-03-16 10:56 | DI.VRAD_ITS ---
Addendum created by Nawaf Langley MD on 03/16/2023 10:58:48 AM EDT: THIS REPORT CONTAINS FINDINGS THAT MAY BE CRITICAL TO PATIENT CARE. The findings were verbally communicated via telephone conference with Ángel Krueger at 10:58 AM EDT on 03/16/2023. The findings were acknowledged and understood. Initial report created on 03/16/2023 10:55:15 AM EDT: PROCEDURE INFORMATION: Exam: CT Abdomen And Pelvis Without And With Contrast Exam date and time: 03/16/2023 10:06 AM Age: 68 years old Clinical indication: Abdominal pain; Other: Rule out pancreatic cancer TECHNIQUE: Imaging protocol: Computed tomography of the abdomen and pelvis without and with contrast. Contrast material: OMNIPAQUE 350; Contrast volume: 100 ml; Contrast route: INTRAVENOUS (IV); COMPARISON: MR ABDOMEN WO 03/15/2023 11:33 AM FINDINGS: Liver: Normal. No mass. Gallbladder and bile ducts: Cholecystectomy. The common duct is prominent. It measures 20 millimeters. This may be due to post cholecystectomy state and elderly status. However, if biliary obstruction is suspected clinically, recommend further evaluation. Pancreas: Ill-defined 2x 2.4 cm mass in the head of the pancreas. ( Series 8, image 28; series 10, image 44) it involves uncinate process. There is mild dilatation of the pancreatic duct. Spleen: Borderline splenomegaly 13.4 cm. Adrenal glands: Normal. No mass. Kidneys and ureters: Normal. No hydronephrosis. Stomach and bowel: Diverticulosis of the rectosigmoid. No diverticulitis. Appendix: No evidence of appendicitis. Intraperitoneal space: Unremarkable. No free air. No significant fluid collection. Vasculature: Unremarkable. No abdominal aortic aneurysm. Lymph nodes: Unremarkable. No enlarged lymph nodes. Urinary bladder: Unremarkable as visualized. Reproductive: Unremarkable as visualized. Bones/joints: Unremarkable. No acute fracture. Soft tissues: Unremarkable. IMPRESSION: 1. Ill-defined 2x 2.4 cm mass in the head of the pancreas. ( Series 8, image 28; series 10, image 44) it involves uncinate process. Findings likely represent pancreatic carcinoma 2. The common duct is prominent. It measures 20 millimeters. This may be due to post cholecystectomy state and elderly status. However, if biliary obstruction is suspected clinically, recommend further evaluation. 3. Borderline splenomegaly 13.4 cm. Differential diagnosis of splenomegaly is lymphoma/leukemia, mononucleosis, hemolytic anemia, portal hypertension. Dictated and Authenticated by: Nawaf Langley MD. Ordering:KRISTINA Neal MD
--- NOTE | 2023-03-16 11:23 | W.PM.PROGNOT ---
Date of Service Date of service: 03/16/23 Time of Service: 11:23 Objective Last Vital Signs Temp 35.6 C L 03/16/23 10:53 Pulse 69 03/16/23 10:53 Resp 20 03/16/23 10:53 BP 126/79 03/16/23 10:53 Pulse Ox 97 03/16/23 10:53 Laboratory Results - last 24 hr 03/14/23 03/16/23 03/16/23 12:00 07:46 07:46 WBC 6.92 RBC 5.40 Hgb 16.7 Hct 45.7 MCV 85 MCH 30.9 MCHC 36.5 H RDW 13.2 Plt Count 191 MPV 11.0 Immature Gran % 1.3 Neutrophils % 69.7 Lymphocytes % 16.9 Monocytes % 9.2 Eosinophils % 2.0 Basophils % 0.9 Nucleated RBC % 0.0 Absolute Neutrophils 4.82 Absolute Lymphocytes 1.17 L Absolute Monocytes 0.64 Absolute Eosinophils 0.14 Absolute Basophils 0.06 Sodium 126 L Potassium 4.7 Chloride 94 L Carbon Dioxide 20.7 L Anion Gap 11.3 H BUN 19 H Creatinine 1.0 Est GFR (CKD-EPI 2020) 81.47 Glucose 294 H Calcium 9.3 Magnesium 1.9 Lipase 195 H Lyme Disease Antibody Negative
[2023-03-16 15:21] VITALS: BP 121/77; PULSE 57; RESP 20; TEMP 36.2; O2SAT 97
[2023-03-16 16:30] LABS: Source Nasal/Nares
[2023-03-16 17:01] LABS: COVID-19 PCR Negative (Negative)
--- NOTE | 2023-03-16 17:38 | W.PM.DS.N ---
Date of service: 03/16/23 Time of Service: 17:42 DS: Diagnosis Discharge Diagnosis (1) Abdominal pain with jaundice: Status: Acute (2) HTN (hypertension): (3) Diabetes: (4) Depression: (5) DVT prophylaxis: Status: Acute (6) Discharge planning issues: Status: Acute Discharge Plan Disposition Patient Disposition: Transfer-Acute Inpatient Care Specific Acute Inpt Facility: Other Condition: Fair Discharge Details Reason For Visit: Painless Jaundice Admit Date/Time: 03/14/23 15:26 Admit Provider: Kay Molina Attending Provider: Kay Molina Primary Care Provider: Unknown,Unknown Hospital Course Hospital Course: This is a 68 year old male patient with a past medical and surgical history that includes COPD and cholecystitis which was treated by laparoscopic cholecystectomy earlier this year, who presented to the [facility] ED with complaint of malaise, abdominal pain.? Patient and his noticed that his skin was turning yellow.? Patient described some increased cramping abdominal discomfort.? Surgery was consulted, he was placed on observation status on the medical floor.?Labs: Bilirubin 18.3, Albumin 3.2; AST 230, ALT 508, Alk Phos 380, Lipase 195, WBC 6.92, H&H 16/45, Sodium 1256 (after fluids, ED was 132), Creatinine 1.0, glucose 294. Abdominal US status post cholecystectomy, dilated common bile duct, no obstructing stone. MRCP dilated common bile duct and intrahepatic ducts, no stone, no masses visualized. CT Abdomen and pelvis Ill-defined 2x2.4 cm mass in the head of the pancreas, suggestive of pancreatic carcinoma. Common duct is prominent measuring 20 mm. Borderline splenomegaly 13.4 cm. Discussed with the surgery here and they recommended he see advanced GI and have ERCP with EUS and S&A. Advised the patient that a mass was visualized and an ERCP is recommended. He is in agreement to being transferred to the [facility] to be evaluated by the advanced GI team and he is agreeable to ERCP and any biopsies or other treatment. I discussed him with Dr Santiago and team at the [facility] and they accept him in transfer. He is seeing an patternmaker apprentice metal at the [facility] and is on Metformin, while hospitalized Metformin has been held and he is on sliding scale insulin. His A1C is 9.8. TSH 4.23. His vital signs are stable. Per GI recommendation he was NOT started on antibiotics; he is without fever and no leukocytosis, his procalcitonin is 0.4. He has had no pain, no nausea, no vomiting, no diarrhea. A disc was made of his diagnostic imaging [facility]. He is Covid 19 negative. He is a full code. Home Meds and New Rx's Prescriptions: Continued venlafaxine [Effexor XR] 150 MG capsule,extended release 24hr 150 mg PO DAILY albuterol sulfate [Ventolin HFA] 60 PUFF HFA aerosol inhaler 2 puff Inhalation Q3H PRN PRN cholecalciferol (vitamin D3) 1,000 UNITS tablet 2,000 units PO DAILY budesonide-formoterol [Symbicort] 10.2 GM HFA aerosol inhaler 10.2 g Inhalation BID aspirin 81 mg Tablet,Chewable 81 mg PO DAILY lisinopril 5 mg Tablet 5 mg PO DAILY metformin 1,000 mg Tablet 1,000 mg PO DAILY@1700 Rx Instructions: once daily with dinner pravastatin 10 mg tablet 10 mg PO QPM omeprazole 20 mg Capsule,Delayed Release(Dr/Ec) 20 mg PO DAILY propranolol 40 mg tablet 40 mg PO DAILY doxazosin 2 mg Tablet 2 mg PO HS montelukast 5 mg tablet,chewable 10 mg PO DAILY carboxymethylcellulose sodium 0.5 % dropperette 1 drp ophthalmic (eye) QID PRN PRN (Reason: Dry Eyes) Rx Instructions: 1 drop both eyes QID PRN Discharge Instructions Additional Instructions: Recommend follow up with endocrinology @ the [facility] as planned to manage diabetes. Activity:: Activity as Tolerated Equipment/Supplies:: No Equipment Needed Diet:: As Tolerated Discharge Orders Discharge Orders: Discharge Order (Routine); Ordered 03/16/23 Ordered By: Bhumi Bishop DS: Summary Time Spent with Patient providing and/or coordinating discharge services: Greater than 30 minutes Status at Discharge Functional status at discharge: independent ambulation Overall status at discharge: patient is not back to baseline Mental Status: mental status grossly normal Speech and Movement: speech and movement normal Mood: congruent mood Affect: normal affect Exam Const General: cooperative, healthy appearing and comfortable Orientation: alert and oriented x3 Resp Effort & Inspection: normal respiratory effort, no audible wheezes and no cough GI Inspection: normal to inspection Skin General skin exam: jaundice Psych Mental Status: mental status grossly normal Speech and Movement: speech and movement normal Mood: congruent mood Affect: normal affect DS: Data Vitals/I&O Vitals and I&O: Vital Signs Temperature 36.2 C L 03/16/23 15:21 Temperature Source Tympanic 03/16/23 15:21 Pulse 57 L 03/16/23 15:21 Pulse Rhythm Regular 03/16/23 15:49 Respiratory Rate 20 03/16/23 15:21 Respiratory Effort Normal, Non-Labored 03/16/23 15:49 Respiratory Depth Normal 03/16/23 15:49 Respiratory Pattern Normal 03/16/23 15:49 Blood Pressure 121/77 03/16/23 15:21 Blood Pressure Position Sitting 03/14/23 11:26 Pulse Oximetry 97 03/16/23 15:21 Oxygen Delivery Method Room Air 03/16/23 15:21 Oxygen Flow Rate 0 03/16/23 15:21 Pain Level 0 03/16/23 15:21 Comment Pt. denies pain at this time. 03/16/23 10:53 Intake & Output 03/15/23 03/16/23 03/16/23 23:59 11:59 23:59 Intake Total 790 / 790 Output Total 1250 / 1250 2025 / 2725 700 / 2725 Balance -1250 / -1250 -2024 / -1935 90 / -1935 Weight 80.331 kg Intake: Oral 790 / 790 Output: Urine 1250 / 1250 2025 / 2725 700 / 2725 Other: Urine Color Light Adriana Yellow Light Adriana [place] Rockdale [place] Urine Appearance Clear Clear Clear Urine Odor Normal Normal Comment Void x1 in the urinal. Void x1 in the urinal. Voiding Methods Urinal Urinal Urinal Data Completed and Pending Labs on day of discharge: Labs from last 24 hours 03/16/23 03/16/23 03/16/23 16:22 07:46 07:46 WBC 6.92 RBC 5.40 Hgb 16.7 Hct 45.7 MCV 85 MCH 30.9 MCHC 36.5 H RDW 13.2 Plt Count 191 MPV 11.0 Immature Gran % 1.3 Neutrophils % 69.7 Lymphocytes % 16.9 Monocytes % 9.2 Eosinophils % 2.0 Basophils % 0.9 Nucleated RBC % 0.0 Absolute Neutrophils 4.82 Absolute Lymphocytes 1.17 L Absolute Monocytes 0.64 Absolute Eosinophils 0.14 Absolute Basophils 0.06 Sodium 126 L Potassium 4.7 Chloride 94 L Carbon Dioxide 20.7 L Anion Gap 11.3 H BUN 19 H Creatinine 1.0 Est GFR (CKD-EPI 2020) 81.47 Glucose 294 H Calcium 9.3 Magnesium 1.9 Lipase 195 H COVID-19 Source Nasal/Nares SARS-CoV-2 (PCR) Negative PFSH All Active Problems (Updated 03/15/23 @ 20:23 by Bhumi Bishop NP) Discharge planning issues (Acute) DVT prophylaxis (Acute) Abdominal pain with jaundice (Acute) Acute cholecystitis due to biliary calculus (Acute) Leukocytosis (Acute) COPD (chronic obstructive pulmonary disease) (Chronic) Medical History (Updated 03/15/23 @ 20:23 by Bhumi Bishop NP) Acute cholecystitis Anxiety Depression Diabetes GERD (gastroesophageal reflux disease) Gout HTN (hypertension) Hx of hyperlipidemia Sepsis Surgical History (Updated 11/09/22 @ 15:34 by Мария Ponce DO) H/O thyroid cyst Cystectomy History of hernia repair History of hip replacement S/P laparoscopic cholecystectomy Social History Smoking/Tobacco Use Status: Former Tobacco Use Quit Date: 06/09/22 Smoking risk assessment performed?: Yes Alcohol Intake: former Drug use: Never Substance use type: does not use Housing: house Do you feel safe at home: Yes Do you feel safe in your relationship?: Yes Time Spent with Patient Time Spent with Patient: 70-84 minutes4 Time was spent: preparing to see the patient(eg.review tests), ordering medications,tests, procedures, referring, communicating with other health child care group leader, indepentently interpreting results, counseling the patient and care coordination
--- NOTE | 2023-03-16 18:03 | NUR.NOTE ---
Addendum entered by Muna Wagner RN 03/16/23 18:14: The RN that I gave report to was Regulo. Original Note: Nursing Note: RN to RN report given to RN @ [facility]. Denied further questions, verbalized full understanding. Notified them that Mateus Dexter would be picking the patient up somewhere between [id number].
[2023-03-17 16:58] LABS: Anaplasma phagocytophilum Negative (Negative); B. miyamotoi PCR Negative (Negative); Babesia divergens/MO-1 Negative (Negative); Babesia duncani Negative (Negative); Babesia microti Negative (Negative); Ehrlichia chaffeensis Negative (Negative); Ehrlichia ewingii/canis Negative (Negative); Ehrlichia muris eauclairensis Negative (Negative)
== END 2023-03-16 18:50 | disposition short-term general hospital (02) | DRG 436 ==
LOC: ER 12:10 → MS 17:08
PROVIDERS: Nurse Practitioner Family; Admitting Provider Internal Medicine; Emergency Provider Physician Assistant; Visit Provider Internal Medicine
DX: C25.0 Malignant neoplasm of head of pancreas (principal); E87.1 Hypo-osmolality and hyponatremia; R17 Unspecified jaundice; R10.9 Unspecified abdominal pain; J44.9 Chronic obstructive pulmonary disease, unspecified; Z79.84 Long term (current) use of oral hypoglycemic drugs; D72.829 Elevated white blood cell count, unspecified; E78.5 Hyperlipidemia, unspecified; I10 Essential (primary) hypertension; F41.9 Anxiety disorder, unspecified; F32.A Depression, unspecified; Z87.891 Personal history of nicotine dependence; R16.1 Splenomegaly, not elsewhere classified
CPT/HCPCS: 36415; 80048; 80053; 80076; 82805; 83690; 84145; 87635; 87798; 94640; 96360; 96361; 99285; 74160; 74181; 76705; 80329; 82140; 82248; 83036; 83735; 83930; 84443; 85025; 85610; 86140; 86618; 99222; 99232; 99239; J1644; J3490; Q9967

== ENCOUNTER 2024-10-16 10:08 | Emergency (ER) | payer OTHER, SELFPAY ==
[2024-10-16 10:10] VITALS: BP 111/66; PULSE 71; RESP 16; TEMP 36.6; O2SAT 98
--- NOTE | 2024-10-16 10:47 | W.ED.GENAD ---
Discharge Plan Disposition Patient Disposition: Home Condition: Stable Discharge Details Clinical Impression: Ventral hernia Primary Care Provider: Nena Arceo ED Provider: Juve De La Torre Home Meds and New Rx's Prescriptions: Continued venlafaxine [Effexor XR] 150 MG capsule,extended release 24hr 150 mg PO DAILY albuterol sulfate [Ventolin HFA] 60 PUFF HFA aerosol inhaler 2 puff Inhalation Q3H PRN PRN cholecalciferol (vitamin D3) 1,000 UNITS tablet 2,000 units PO DAILY budesonide-formoterol [Symbicort] 10.2 GM HFA aerosol inhaler 10.2 g Inhalation BID omeprazole 20 mg Capsule,Delayed Release(Dr/Ec) 20 mg PO DAILY propranolol 40 mg tablet 40 mg PO DAILY doxazosin 2 mg Tablet 2 mg PO HS montelukast 5 mg tablet,chewable 10 mg PO DAILY carboxymethylcellulose sodium 0.5 % dropperette 1 drp ophthalmic (eye) QID PRN PRN (Reason: Dry Eyes) Rx Instructions: 1 drop both eyes QID PRN Discontinued aspirin 81 mg Tablet,Chewable 81 mg PO DAILY lisinopril 5 mg Tablet 5 mg PO DAILY metformin 1,000 mg Tablet 1,000 mg PO DAILY@1700 Rx Instructions: once daily with dinner pravastatin 10 mg tablet 10 mg PO QPM Discharge Instructions Instructions: Abdominal wall hernias Additional Instructions: Please follow-up with your general surgeon. Call today. Please follow-up for MRI as scheduled next week. Please follow-up with your primary care physician. Return to the emergency department immediately for any worsening or new concerning symptoms. HPI General Mode of arrival: ambulatory. Date/Time Provider Initiated Documentation: 10/16/24 10:34. Limitations to Documentation: no limitations. Information obtained by: patient. HPI Narrative: HISTORY OF PRESENT ILLNESS The patient presents for evaluation of an abdominal bulge. He reports a recent onset of an abdominal bulge, first noticed on Saturday morning during breakfast. The bulge is more pronounced when supine and associated with mild pain during coughing. He experiences discomfort when lying flat due to abdominal pressure but it does not interfere with sleep once he finds a comfortable position. He has intermittent chills since his surgery, but no fevers, vomiting, diarrhea, abnormal bowel movements, blood or black stool, swelling, rashes, or chest pain. 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 He is under the care of Dr. Desiree Krueger at [facility] and has regular follow-ups with an oncologist at the [facility], where he undergoes routine cancer CT scans. He has an upcoming MRI next Saturday at the [facility] to evaluate a previously placed device for bowel function, which has recently enlarged. He has a history of diabetes, with blood sugar levels previously over 300, now managed within the 200s to 100s. He is on insulin therapy, administered four times daily. Supplemental Information He occasionally takes Tylenol or ibuprofen for headaches. Related Data Home Medications ?Medication ?Instructions ?Recorded ?Confirmed albuterol sulfate 90 mcg/actuation 2 puff inhalation Q3H PRN PRN 11/11/16 10/16/24 aerosol inhaler (Ventolin HFA) budesonide-formoterol HFA 160 10.2 g inhalation BID 11/11/16 10/16/24 mcg-4.5 mcg/actuation aerosol inhaler (Symbicort) cholecalciferol (vitamin D3) 25 2,000 units PO DAILY 11/11/16 10/16/24 mcg (1,000 unit) tablet venlafaxine 150 mg 150 mg PO DAILY 11/11/16 10/16/24 capsule,extended release 24 hr (Effexor XR) carboxymethylcellulose sodium 0.5 1 drp ophthalmic (eye) QID PRN PRN 03/15/23 10/16/24 % eye drops in a dropperette Dry Eyes doxazosin 2 mg tablet 2 mg PO HS 03/15/23 10/16/24 montelukast 5 mg chewable tablet 10 mg PO DAILY allergies 03/15/23 10/16/24 omeprazole 20 mg capsule,delayed 20 mg PO DAILY 03/15/23 10/16/24 release propranolol 40 mg tablet 40 mg PO DAILY 03/15/23 10/16/24 Allergies Allergy/AdvReac Type Severity Reaction Status Date / Time No Known Allergies Allergy Unverified 10/16/24 10:15 General Stated Complaint: Abd Prob LAILA: 3 Review of Systems Narrative: REVIEW OF SYSTEMS Positive for chills. Negative for fevers, vomiting, diarrhea, abnormal bowel movements, blood or black stool, swelling, rashes, or chest pain. Exam Narrative Exam Narrative: PHYSICAL EXAM General Appearance: Normal. Vital signs: Within normal limits. HEENT: Within normal limits. Respiratory: Lungs clear. Cardiovascular: Heart normal rhythm, no murmurs. Gastrointestinal: Large abdominal wall defect under the scar, likely a large hernia, which reduces easily. nl bowel sounds. Nontender, nondistended. No rebound tenderness. Skin: Warm and dry, no rash. Neurological: Alert and oriented. Course Vital Signs Vital signs: Vital Signs Temperature 36.6 C 10/16/24 10:10 Pulse 71 10/16/24 10:10 Respiratory Rate 16 10/16/24 10:10 Blood Pressure 111/66 10/16/24 10:10 Pulse Oximetry 98 10/16/24 10:10 Temperature 36.6 C 10/16/24 10:10 Temperature Source Oral 10/16/24 10:10 Pulse 71 10/16/24 10:10 Respiratory Rate 16 10/16/24 10:10 Blood Pressure 111/66 10/16/24 10:10 Pulse Oximetry 98 10/16/24 10:10 Oxygen Delivery Method Room Air 10/16/24 10:10 Oxygen Flow Rate 0 10/16/24 10:10 Pain Level 2 10/16/24 10:10 Medical Decision Making ASSESSMENT AND PLAN Initial Assessment: 69yo male presents with a bulge in the middle abdomen, more noticeable when lying down, causing discomfort. History of Whipple surgery one year ago. No fever, vomiting, diarrhea, or abnormal bowel movements. No chest pain or other swelling. Abdominal exam nontender and nonperitoneal. Differential Diagnosis: - Ventral hernia: Large defect in the abdominal wall under the scar, likely bowel bulging out. Reduces easily, not tender, indicating it is not incarcerated or strangulated. Plan to follow up with the surgeon to discuss potential treatment options, including mesh supports or additional surgery. ED Course: - Physical exam: Heart sounds regular, normal rhythm, lungs clear, good bowel sounds. Large defect in the abdominal wall noted, consistent with a ventral hernia. Hernia reduces easily, not tender. - Advised patient to follow up with the surgeon and call today to schedule an appointment if not already planned. - Discussed the importance of the upcoming MRI scheduled for next Saturday to provide more detail on the condition. Final Assessment: Patient is stable today with a ventral hernia that reduces easily and is not tender. No emergent condition. Advised to follow up with the surgeon and proceed with the scheduled MRI. Clinical Impression: - Ventral hernia Disposition: - Follow-Up: Advised to call the surgeon today to schedule an appointment. Follow up with the MRI next Saturday. MDM Components Evaluation: - Number of Differential Diagnoses or Management Options: Ventral hernia - Amount and Complexity of Data Reviewed: Physical exam, patient history - Risk of Complication and Morbidity or Mortality: Low risk today as the hernia is not incarcerated or strangulated. Importance of follow-up with the surgeon and MRI emphasized. This document was written with the assistance of SHANNON Rock. The patient consented to its use. Quality:SDOH Health Related Social Needs: No Data to Display PFSH All Active Problems (Updated 10/16/24 @ 10:49 by Juve De La Torre MD) Ventral hernia (Acute) Acute hyponatremia (Acute) Abdominal pain with jaundice (Acute) Acute cholecystitis due to biliary calculus (Acute) Leukocytosis (Acute) COPD (chronic obstructive pulmonary disease) (Chronic) Medical History (Updated 10/16/24 @ 10:49 by Juve De La Torre MD) Sepsis Acute cholecystitis Depression Anxiety Diabetes Gout GERD (gastroesophageal reflux disease) Hx of hyperlipidemia HTN (hypertension) Surgical History (Updated 11/09/22 @ 15:34 by Мария Ponce DO) S/P laparoscopic cholecystectomy H/O thyroid cyst Cystectomy History of hip replacement History of hernia repair Social History Smoking/Tobacco Use Status: Former Tobacco Use Quit Date: 06/09/22 Smoking risk assessment performed?: Yes Alcohol Intake: former Drug use: Never Substance use type: does not use Housing: house Do you feel safe at home: Yes Do you feel safe in your relationship?: Yes
== END 2024-10-16 11:22 | disposition home or self-care (01) ==
LOC: ER 10:58
PROVIDERS: Emergency Provider Student in an Organized Health Care Education/Training Program; PCP Physician Assistant
DX: K43.9 Ventral hernia without obstruction or gangrene (principal); E11.9 Type 2 diabetes mellitus without complications; I10 Essential (primary) hypertension; E78.5 Hyperlipidemia, unspecified; Z79.82 Long term (current) use of aspirin; Z79.84 Long term (current) use of oral hypoglycemic drugs; Z87.891 Personal history of nicotine dependence
CPT/HCPCS: 99283